=== PATIENT | female | born 1935 | race Caucasian/White ===

== ENCOUNTER 2016-07-28 10:14 | Emergency (ER) | payer MEDICARE ==
--- NOTE | 2016-07-28 10:58 | ERNOTE ---
Lower Extremity HPI - Narrative Date of Service: 07/28/16 - General Lower Extremities Pain: leg: left Time Seen by Provider: 07/28/16 10:44 Source: patient Exam Limitations: no limitations - Immun/Allergies/Home Medications Immunizations: IMMUNIZATION HX Immunizations Up to Date Yes History of Influenza Vaccine Yes Hx Pneumococcal Vaccination Yes Allergies/Adverse Reactions: Allergies Allergy/AdvReac Type Severity Reaction Status Date / Time ciprofloxacin [From Cipro] Allergy Verified 07/28/16 11:57 ciprofloxacin HCl Allergy Verified 07/28/16 11:57 [From Cipro] Iodinated Contrast Media - Allergy Verified 07/28/16 11:57 Oral and Sulfa (Sulfonamide Allergy Verified 07/28/16 11:57 Antibiotics) [Sulfa(Sulfonamide Antibiotics)] Home Medications: HOME MEDICATIONS Aspirin/Calcium Carbonate [Yanelis Women's Aspirin Tablet] 81 mg PO DAILY [Last Taken 11/21/15 22:00] Cholecalciferol [Vitamin D] 600 units PO DAILY 10/11/12 [Last Taken 11/21/15 22: 00] Levothyroxine Sodium [Synthroid] 75 mcg PO DAILY 10/11/12 [Last Taken 11/22/15 07:00] Multivitamins [Multivitamin Betty] 1 cap PO DAILY 10/11/12 [Last Taken 22:00] Nitroglycerin 0.4 mg SL Q5MIN PRN 10/11/12 [Last Taken Unknown] [place]-3/Dha/Epa/Fish Oil [Fish Oil Dr 500 mg Softgel] 3,000 mg PO DAILY [Last Taken 11/21/15 22:00] Ubidecarenone [Co Q-10] 100 mg PO DAILY 10/11/12 [Last Taken 11/21/15 22:00] Valsartan [Diovan] 80 mg PO DAILY 10/11/12 [Last Taken 11/21/15 22:00] Ascorbic Acid [Vitamin C] 1,000 mg PO BID 10/25/12 [Last Taken 11/21/15 22:00] Calcium Carbonate [Tums] 1,000 mg PO DAILY #0 tab.chew 11/20/12 [Last Taken 15:00] Acetaminophen [Tylenol] 650 mg PO Q4H 09/09/13 [Last Taken Unknown] Acyclovir [Zovirax] 400 mg PO BID PRN 01/06/14 [Last Taken Unknown] Atorvastatin Calcium [Lipitor] 40 mg PO HS 02/18/14 [Last Taken 11/21/15 22:00] Ondansetron [Zofran Odt] 4 mg PO Q8H PRN #20 tab 02/23/15 [Last Taken Unknown] Enoxaparin Sodium [Lovenox] 60 mg SC Q12H #5 disp.syrin 07/28/16 [Last Taken Unknown] Warfarin Sodium [Coumadin] 5 mg PO DAILY #3 tablet 07/28/16 [Last Taken Unknown] - History of Present Illness Narrative: Pt. comes in with c/o LLE pain and swelling. Ptr. states that she has had a DVT in this leg twice before and she recently returned from [place]. Pt. also states that she has a hx of venous insufficiency that she wears compression stockings for. Pt. denies any CP, SOB, recent illness, NVD, fever, numbness or tingling. Pt. states that movement exacerbates the pain but nothing completely alleviates it. Review of Systems - Review of Systems Constitutional: Present: no symptoms reported. Absent: recent illness, fever, chills, weakness, fatigue, malaise EYE: Present: no symptoms reported ENT: Present: no symptoms reported Respiratory: Present: no symptoms reported. Absent: shortness of breath, cough , wheezing Cardiology: Present: no symptoms reported. Absent: chest pain, palpitations, edema Gastrointestinal/Abdominal: Present: no symptoms reported. Absent: nausea, vomiting, diarrhea Genitourinary: Present: no symptoms reported. Absent: frequency, decreased urinary output Musculoskeletal: Present: muscle pain - LLE pain and swelling of calf. Absent: back pain, joint pain Skin: Present: no symptoms reported. Absent: rash, change in hair/nails Neurological: Present: no symptoms reported. Absent: headache, dizziness/light- headedness, numbness, tingling All Other Systems: All systems neg except as marked - Patient's Past Medical History Patient History - Medical: Hypothyroidism Patient History - Cardiac/Respiratory: No pertinent hx Patient History - Cancer: No Hx of Cancer Patient History - Surgical Procedures: Cardiac stent, Other - aneurysm clipping Patient History - Other: None - Family History Father Family History - Medical: Family History - Cardiac/Respiratory: Coronary Heart Disease Mother Family History - Medical: Family History - Cardiac/Respiratory: Coronary Heart Disease - Social History Living Situations: home Abuse History: No History of abuse Psych History: No pertinent hx Does anyone smoke in the home?: No Alcohol Use: none Drug Use: none - Immunizations Immunizations Up to Date: Yes Hx Pneumococcal Vaccination: Yes History of Influenza Vaccine: Yes Physical Exam - Physical Exam General Appearance: Present: wd/wn, alert, no apparent distress Eye Exam: Normal inspection: bilateral, PERRL: bilateral, EOMI: bilateral Ears, Nose, Throat: Present: normal ENT inspection, normal pharynx Neck: Present: normal inspection, nontender. Absent: lymphadenopathy (R), lymphadenopathy (L) Respiratory: Present: no respiratory distress, normal breath sounds, no accessory muscle use, chest nontender, lungs clear Cardiovascular/Chest: Present: regular rate, rhythm, no murmur, normal peripheral pulses. Absent: systolic murmur, diastolic murmur, chest tenderness Gastrointestinal/Abdominal: Present: normal bowel sounds, nontender, nondistended, soft, no organomegaly Back Exam: Present: normal inspection, normal range of motion, no CVA tenderness , no vertebral tenderness Extremity Exam: Present: normal range of motion, no edema, calf tenderness - L Neurological Exam: Present: alert, oriented, normal mood/affect, no motor/ sensory deficits, telesales specialist II-XII nml as tested, normal cerebellar test Skin Exam: Present: normal color, warm/dry. Absent: pallor, skin rash ED Progress - Date and Time Seen: Date and Time: 07/28/16 15:56 Pt. 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 Pt. has been on lovenox and coumadin in the past and was offered admission but declined and I feel this is safe with close follow up on Sunday with coumadin clinic and Dr Walters. Discussed with Dr Nena baltazar he agrees with the POC. - Results and Orders Patient's Lab Results:: I have reviewed the patient's lab results. - Vital Signs Patient's Vital Signs:: I have reviewed the patient's vital signs. Vital Signs: Vital Signs 07/28/16 10:34 Temperature 36.5 C Pulse Rate 95 Respiratory 16 Rate Blood Pressure 141/83 O2 Sat by Pulse 98 Oximetry - EKG EKG: NSR EKG read: Reviewed by me EKG Comments: Interpreted by Dr Pandey - X-Ray X-Ray #1 X-Ray: chest Interpretation: Reviewed by me X-ray Comments: no acute - CT/Ultrasound CT/Ultrasound Narrative: US with notable chronic or acute on chronic DVT mid to distal SFV Discussed with Dr Dewey at 1155. Nuc med scan without evidence of PE - Progress/Reassessment Chief Complaint: Lower Extremity Pain/ Injury Progress:: Unchanged Departure Clinical Impression: DVT (deep venous thrombosis) Qualifiers: DVT location: lower extremity Affected thrombotic vein of extremity: femoral Laterality: left Chronicity: unspecified Qualified Code(s): I82.412 - Acute embolism and thrombosis of left femoral vein - Departure Disposition: Home self-care Condition: Good Instructions: Deep Vein Thrombosis Additional Instructions: Please follow up in coumadin clinic on Sunday as well as Dr Walters Referrals: Matheus Walters MD [Primary Care Provider] - Prescriptions: Enoxaparin Sodium [Lovenox] 60 mg SC Q12H #5 disp.syrin Warfarin Sodium [Coumadin] 5 mg PO DAILY #3 tablet
[2016-07-28 11:07] LABS: Hematocrit 36.7 % (37.0-47.0); Hemoglobin 12.2 gm/dL (12.5-16.0); Mean Cell Volume 94.6 fl (78-100); Mean Corpuscular Hemoglobin 31.4 pg (27-31); Mean Corpuscular Hgb Conc 33.2 g/dl (32-36); Mean Platelet Volume 9.3 fl (6.0-9.5); Neutrophil # 4.2 K/mm3 (1.3-6.0); Neutrophil % 68.8 % (42-75.0); Platelet Count 219 K/mm3 (150-450); Red Blood Count 3.88 M/mm3 (4.2-5.4); Red Cell Distribution Width 12.2 % (11.5-14.0); White Blood Count 6.1 K/mm3 (4.0-10.5)
[2016-07-28 11:16] LABS: Prothrombin Time (Patient) 10.1 Seconds (9.4-11.4)
[2016-07-28 11:17] LABS: INR 0.97 INR (0.90-1.10); Partial Thrombolplastin Time 26.1 Seconds (24-32)
--- OUTSIDE RECORDS SUMMARY | 2016-07-28 11:23 | XMS REPORT | Continuity of Care Document ---
:1935 Author Organization [facility] ([facility]) Address [address] [place] [address] Phone [phone] Care Team Providers Name Role Phone Matheus Walters Primary Care Provider [phone] Source Comments This disclosure is being made pursuant to the Care Everywhere program, applicable federal and state laws, and may not contain all informaitonavailable regarding this patient.[facility] ([facility]) Active Allergies and Adverse Reactions Allergen Noted Date Severity Reactions Comments Iodinated Contrast Media - 09/22/2013 Urticaria Oral And Iv Dye (Hives),Angioedema,Rash Iodine Respiratory Distress,Hypotension Sulfadoxine Urticaria (Hives) Current Medications Prescription Sig. Disp. 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 Overview: Promus 3.0 x 23 mm JAH to LAD in 2010 Mitral regurgitation 01/12/2015 Overview: Mild by outside echo 2013 Essential hypertension 01/12/2015 Hyperlipidemia 01/12/2015 DVT of lower extremity (deep venous thrombosis) 09/22/2013 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 Social History Tobacco Use Types Packs/Day Years Used Date Never Smoker Smokeless Tobacco: Never Used Last Filed Vital Signs Vital Sign Reading Time Taken Blood Pressure 112/80 01/26/2016 10:54 AM CDT Pulse 64 01/26/2016 10:54 AM CDT Temperature 36.4 C (97.5 F) 09/22/2013 3:12 PM CDT Respiratory Rate 16 09/22/2013 3:12 PM CDT Height 1.575 m (5' 2.01") 01/26/2016 10:54 AM CDT Weight 68.493 kg (151 lb) 01/26/2016 10:54 AM CDT Body Mass Index 27.61 01/26/2016 10:54 AM CDT Oxygen Saturation 99% 09/22/2013 3:12 PM CDT Plan of Care Date Type Specialty Providers Description 11/15/2016 Appointment [facility] Alfred Steiner, Subj: Appointment Scheduled [address] [place] [address] [phone] (Fax) Health Maintenance Due Date Last Done Comments Hepatitis B Vaccine (1 of 3 - Primary Series) 1935 Tdap Vaccine 02/06/1946 Td Vaccine 1955 Mammogram 1977 Colonoscopy 1987 Zoster Vaccine 1997 Osteoporosis Screening (DXA Bone Density) 2002 Pneumococcal Vaccine (1 of 2 - PCV13) 2002 Lipid Disorder Screening 12/11/2008 12/12/2003 Influenza Vaccine: Seasonal (#1) 11/01/2015 Results from Last 3 Months Not on file
[2016-07-28 11:26] LABS: ALT 37 U/L (19-67); AST 32 U/L (0-48); Albumin * 3.7 gm/dl (3.4-5.0); Alkaline Phosphatase * 81 U/L (50-170); Anion Gap 13.1 mmol/L (6.8-13.8); BNP * 90 pg/mL (5-550); BUN/Creatinine Ratio 15.1 (9.0-21.6); Bilirubin, Total 0.4 mg/dL (0.0-1.1); Blood Urea Nitrogen 14 mg/dL (3-23); Ca. Corrected For Albumin 9.3 mg/dL (8.4-10.2); Calcium * 9.4 mg/dL (7.9-10.9); Chloride 99 mmol/L (97-106); Glucose * 114 mg/dL (70-110); Potassium 4.1 mmol/L (3.4-4.6); Sodium 136 mmol/L (132-142); Total Protein 7.7 gm/dL (6.2-8.2); Troponin I Less than 0.017 ng/ml (0.00-0.10)
[2016-07-28 15:38] VITALS: BP 151/90
[2016-07-28] MEDS: ENOXAPARIN SODIUM 60 MG/0.6 ML SYRG SC ONE (16:29)
[2016-07-28] MEDS: ENOXAPARIN SODIUM 30 MG/0.3 ML SYRG SC ONE (16:32)
== END 2016-07-28 16:32 | disposition home or self-care (01) ==
LOC: ER 10:14
DX: I82.412 Acute embolism and thrombosis of left femoral vein (principal); Z95.5 Presence of coronary angioplasty implant and graft
CPT/HCPCS: 36415; 71010; 78582; 80053; 83880; 84484; 85025; 85379; 85610; 85730; 93005; 93971; 96372; 99284; A9539; A9540

== ENCOUNTER 2016-08-04 13:10 | Emergency (ER) | payer MEDICARE ==
[2016-08-04 13:19] VITALS: BP 151/89
--- OUTSIDE RECORDS SUMMARY | 2016-08-04 13:37 | XMS REPORT | Continuity of Care Document ---
:1935 Author Organization [facility] ([facility]) Address [address] [place] [address] Phone [phone] Care Team Providers Name Role Phone Matheus Walters Primary Care Provider [phone] Source Comments This disclosure is being made pursuant to the Care Everywhere program, applicable federal and state laws, and may not contain all informaitonavailable regarding this patient.[facility] ([facility]) Active Allergies and Adverse Reactions Allergen [...] tablet (75MCG) by oral route every day kwyok-6-muz-epa-fish oil 03/15/2011 Active (OMEGA-3 FISH OIL) 910-1,400 mg cap valsartan (DIOVAN) 80 mg take 1 tablet 03/15/2011 Active tablet (80MG) by oral route every day Active Problems Problem Noted Date 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
--- NOTE | 2016-08-04 13:50 | ERNOTE ---
Lower Extremity HPI - Narrative Date of Service: 08/04/16 - General Lower Extremities Pain: leg: right Time Seen by Provider: 08/04/16 13:24 Source: patient Exam Limitations: no limitations - Immun/Allergies/Home Medications Immunizations: IMMUNIZATION HX Immunizations Up to Date Yes History of Influenza Vaccine Yes Hx Pneumococcal Vaccination Yes Allergies/Adverse Reactions: Allergies Allergy/AdvReac Type Severity Reaction Status Date / Time ciprofloxacin [From Cipro] Allergy Verified 08/04/16 13:20 ciprofloxacin HCl Allergy Verified 08/04/16 13:20 [From Cipro] Iodinated Contrast Media - Allergy Verified 08/04/16 13:20 Oral and Sulfa (Sulfonamide Allergy Verified 08/04/16 13:20 Antibiotics) [Sulfa(Sulfonamide Antibiotics)] Home Medications: HOME MEDICATIONS Aspirin/Calcium Carbonate [Yanelis Women's Aspirin Tablet] 81 mg PO DAILY [Last Taken 11/21/15 22:00] Cholecalciferol [Vitamin D] 600 units PO DAILY 10/11/12 [Last Taken 11/21/15 22: 00] Levothyroxine Sodium [Synthroid] 75 mcg PO DAILY 10/11/12 [Last Taken 11/22/15 07:00] Multivitamins [Multivitamin Btety] 1 cap PO DAILY 10/11/12 [Last Taken 22:00] Nitroglycerin 0.4 mg SL Q5MIN PRN 10/11/12 [Last Taken Unknown] [place]-3/Dha/Epa/Fish Oil [Fish Oil Dr 500 mg Softgel] 3,000 mg PO DAILY [Last Taken 11/21/15 22:00] Ubidecarenone [Co Q-10] 100 mg PO DAILY 10/11/12 [Last Taken 11/21/15 22:00] Valsartan [Diovan] 80 mg PO DAILY 10/11/12 [Last Taken 11/21/15 22:00] Ascorbic Acid [Vitamin C] 1,000 mg PO BID 10/25/12 [Last Taken 11/21/15 22:00] Calcium Carbonate [Tums] 1,000 mg PO DAILY #0 tab.chew 11/20/12 [Last Taken 15:00] Acetaminophen [Tylenol] 650 mg PO Q4H 09/09/13 [Last Taken Unknown] Acyclovir [Zovirax] 400 mg PO BID PRN 01/06/14 [Last Taken Unknown] Atorvastatin Calcium [Lipitor] 40 mg PO HS 02/18/14 [Last Taken 11/21/15 22:00] Ondansetron [Zofran Odt] 4 mg PO Q8H PRN #20 tab 02/23/15 [Last Taken Unknown] Enoxaparin Sodium [Lovenox] 60 mg SC Q12H #5 disp.syrin 07/28/16 [Last Taken Unknown] Warfarin Sodium [Coumadin] 5 mg PO DAILY #3 tablet 07/28/16 [Last Taken Unknown] - History of Present Illness Narrative: Pt comes in with c/o intermittent R leg swelling and pain. Pt. denies any new symptoms since being diagnosed with lle DVT a week ago but states that her symptoms are not improving despite treatment with lovenox and coumadin. Pt. denies any SOB, CP, dizziness, weakness, vision changes, numbness or tingling. Pt. called her MD office and was told to come here for evaluation. Review of Systems - Review of Systems Constitutional: Present: no symptoms reported. Absent: fever, chills, weakness , fatigue, malaise EYE: Present: no symptoms reported ENT: Present: no symptoms reported Respiratory: Present: no symptoms reported. Absent: shortness of breath, cough , orthopnea, wheezing Cardiology: Present: no symptoms reported. Absent: chest pain, palpitations, edema Gastrointestinal/Abdominal: Present: no symptoms reported. Absent: nausea, vomiting, diarrhea Genitourinary: Present: no symptoms reported. Absent: frequency, pain, decreased urinary output Musculoskeletal: Present: no symptoms reported. Absent: back pain, joint pain Skin: Present: no symptoms reported. Absent: rash, change in hair/nails Neurological: Present: no symptoms reported. Absent: headache, dizziness/light- headedness, numbness, tingling All Other Systems: All systems neg except as marked - Patient's Past Medical History Patient History - Medical: Hypothyroidism Patient History - Cardiac/Respiratory: No pertinent hx Patient History - Cancer: No Hx of Cancer Patient History - Surgical Procedures: Cardiac stent, Other Patient History - Other: None - Family History Father Family History - Medical: Family History - Cardiac/Respiratory: Coronary Heart Disease Mother Family History - Medical: Family History - Cardiac/Respiratory: Coronary Heart Disease - Social History Living Situations: home Abuse History: No History of abuse Psych History: No pertinent hx Does anyone smoke in the home?: No Alcohol Use: none Drug Use: none - Immunizations Immunizations Up to Date: Yes Hx Pneumococcal Vaccination: Yes History of Influenza Vaccine: Yes Physical Exam - Physical Exam General Appearance: Present: wd/wn, alert, no apparent distress Eye Exam: Normal inspection: bilateral, PERRL: bilateral, EOMI: bilateral Ears, Nose, Throat: Present: normal ENT inspection, normal pharynx Respiratory: Present: no respiratory distress, normal breath sounds, no accessory muscle use, chest nontender, lungs clear Cardiovascular/Chest: Present: regular rate, rhythm, no murmur, normal peripheral pulses Gastrointestinal/Abdominal: Present: normal bowel sounds, nontender, nondistended, soft, no organomegaly Back Exam: Present: normal inspection, normal range of motion, no CVA tenderness , no vertebral tenderness Extremity Exam: Present: calf tenderness - L, extremity edema - LLE trace, other - PPP+2/+2. Absent: joint redness Neurological Exam: Present: alert, oriented, normal mood/affect, no motor/ sensory deficits, gaggerman II-XII nml as tested, normal cerebellar test Skin Exam: Present: normal color, warm/dry. Absent: pallor, skin rash ED Progress - Date and Time Seen: Date and Time: 08/04/16 13:38 As pt. is not with new symptoms educated pt. to elevate her LE above heart and reassured that this is normal and may not be improved for weeks. Pt. comfortable with this and I do not feel that repeat testing is necessary as pt. has no new symptoms and is not therapeutic with her coumadin since yesterday. Discussed with Dr Pandey and he agrees. 08/04/16 13:49 - Results and Orders Patient's Lab Results:: I have reviewed the patient's lab results. Results and Orders: INR 1.7 yesterday - Vital Signs Patient's Vital Signs:: I have reviewed the patient's vital signs. Vital Signs: Vital Signs 08/04/16 13:15 Temperature 36.0 C L Pulse Rate 83 Respiratory 16 Rate Blood Pressure 151/89 O2 Sat by Pulse 96 Oximetry - Progress/Reassessment Chief Complaint: Lower Extremity Pain/ Injury Progress:: Unchanged Departure Clinical Impression: DVT (deep venous thrombosis) Qualifiers: DVT location: lower extremity Affected thrombotic vein of extremity: other lower extremity vein Laterality: right Chronicity: chronic Qualified Code(s): I82.591 - Chronic embolism and thrombosis of other specified deep vein of right lower extremity - Departure Disposition: Home self-care Condition: Good Instructions: Deep Vein Thrombosis Additional Instructions: Keep your legs elevated, follow up with Dr Walters on Sunday at 1115. Keep appointment with catherine on Sunday Referrals: Matheus Walters MD [Primary Care Provider] -
== END 2016-08-04 13:57 | disposition home or self-care (01) ==
LOC: ER 13:10
DX: I82.591 Chronic embolism and thrombosis of other specified deep vein of right lower extremity (principal); E03.9 Hypothyroidism, unspecified

== ENCOUNTER 2016-08-07 22:28 | Emergency (ER) | payer MEDICARE ==
--- NOTE | 2016-08-07 23:36 | ERNOTE ---
Medical Problem HPI - General Chief Complaint: Laceration Time Seen by Provider: 08/07/16 23:26 Source: patient Exam Limitations: no limitations - Immun/Allergies/Home Medications Immunizations: IMMUNIZATION HX Immunizations Up to Date Yes History of Influenza Vaccine Yes Hx Pneumococcal Vaccination Yes Allergies/Adverse Reactions: Allergies ciprofloxacin [From Cipro] Allergy (Verified 08/04/16 13:20) ciprofloxacin HCl [From Cipro] Allergy (Verified 08/04/16 13:20) Iodinated Contrast Media - Oral and Allergy (Verified 08/04/16 13:20) Sulfa (Sulfonamide Antibiotics) [Sulfa(Sulfonamide Antibiotics)] Allergy ( Verified 08/04/16 13:20) Home Medications: HOME MEDICATIONS Aspirin/Calcium Carbonate [Yanelis Women's Aspirin Tablet] 81 mg PO DAILY [Last Taken 11/21/15 22:00] Cholecalciferol [Vitamin D] 600 units PO DAILY 10/11/12 [Last Taken 11/21/15 22: 00] Levothyroxine Sodium [Synthroid] 75 mcg PO DAILY 10/11/12 [Last Taken 11/22/15 07:00] Multivitamins [Multivitamin Betty] 1 cap PO DAILY 10/11/12 [Last Taken 22:00] Nitroglycerin 0.4 mg SL Q5MIN PRN 10/11/12 [Last Taken Unknown] [place]-3/Dha/Epa/Fish Oil [Fish Oil Dr 500 mg Softgel] 3,000 mg PO DAILY [Last Taken 11/21/15 22:00] Ubidecarenone [Co Q-10] 100 mg PO DAILY 10/11/12 [Last Taken 11/21/15 22:00] Valsartan [Diovan] 80 mg PO DAILY 10/11/12 [Last Taken 11/21/15 22:00] Ascorbic Acid [Vitamin C] 1,000 mg PO BID 10/25/12 [Last Taken 11/21/15 22:00] Calcium Carbonate [Tums] 1,000 mg PO DAILY #0 tab.chew 11/20/12 [Last Taken 15:00] Acetaminophen [Tylenol] 650 mg PO Q4H 09/09/13 [Last Taken Unknown] Acyclovir [Zovirax] 400 mg PO BID PRN 01/06/14 [Last Taken Unknown] Atorvastatin Calcium [Lipitor] 40 mg PO HS 02/18/14 [Last Taken 11/21/15 22:00] Ondansetron [Zofran Odt] 4 mg PO Q8H PRN #20 tab 02/23/15 [Last Taken Unknown] Enoxaparin Sodium [Lovenox] 60 mg SC Q12H #5 disp.syrin 07/28/16 [Last Taken Unknown] Warfarin Sodium [Coumadin] 7.5 mg PO DAILY 08/07/16 [Last Taken Unknown] - History of Present History Narrative: skin tear on left wrist unknown injury. unable to stop bleeding due to recent coumadin initiation Timing: constant Severity: mild Review of Systems - Review of Systems Constitutional: Present: no symptoms reported EYE: Present: no symptoms reported ENT: Present: no symptoms reported Respiratory: Absent: shortness of breath Cardiology: Absent: chest pain Gastrointestinal/Abdominal: Present: no symptoms reported Genitourinary: Present: no symptoms reported Musculoskeletal: Present: no symptoms reported Skin: Present: no symptoms reported Neurological: Present: no symptoms reported Endocrine: Present: no symptoms reported Hematologic/Lymphatic: Present: easy bruising, easy bleeding - recent DVT and initiation of coumadin. dose increased today due to INR of 1.54 Psych: Present: no symptoms reported - Patient's Past Medical History Patient History - Medical: Hypothyroidism Patient History - Cardiac/Respiratory: CVA/Stroke, Deep Vein Thrombosis, Hypertension Patient History - Cancer: No Hx of Cancer Patient History - Surgical Procedures: Cardiac stent, Other Patient History - Other: None - Family History Father Family History - Medical: Family History - Cardiac/Respiratory: Coronary Heart Disease Mother Family History - Medical: Family History - Cardiac/Respiratory: Coronary Heart Disease - Social History Living Situations: spouse Abuse History: No History of abuse Psych History: No pertinent hx Does anyone smoke in the home?: No Smoking Status: Never smoker Alcohol Use: none Drug Use: none - Immunizations Immunizations Up to Date: Yes Hx Pneumococcal Vaccination: Yes History of Influenza Vaccine: Yes Physical Exam - Physical Exam General Appearance: Present: wd/wn, alert, no apparent distress ED Progress - Results and Orders Patient's Lab Results:: I have reviewed the patient's lab results. - INR done earlier today - Vital Signs Patient's Vital Signs:: I have reviewed the patient's vital signs. Vital Signs: Vital Signs 08/07/16 22:32 Temperature 36.1 C L Pulse Rate 84 Respiratory 14 Rate Blood Pressure 131/82 O2 Sat by Pulse 99 Oximetry - Progress/Reassessment Chief Complaint: Laceration Progress Note-Subjective: 08/08/16 01:40 EMLA, gauze and tegaderm was placed on the wound and it appeared to stop bleeding but before the patient could be discharged the bandage showed significant blood saturation. tegaderm was removed and wound treated with silver nitrate Procedures Left Wrist Anesthesia: Topical - EMLA and occlusive dressing Length of Repair/Wound (cm): 0.2 Wound's Depth/Shape: superficial Wound Repaired With: other - chemical cautery with silver nitrate. single application accomplished hemostasis Estimated blood loss (ml): 5 Wound Dressing: sterile dressing applied - with 2x2 and tegaderm Complications: Pt lilian procedure well Departure - Departure Clinical Impression: Skin tear of hand without complication Qualifiers: Encounter type: initial encounter Laterality: left Qualified Code(s): S61.412A - Laceration without foreign body of left hand, initial encounter Disposition: Home self-care Condition: Good Instructions: Laceration Care, Adult, [id number] Additional Instructions: leave bandage on for 36 hours then carefully take off. If it begins to stick you may use peroxide or water to help loosen the bandage. Referrals: Matheus Walters MD [Primary Care Provider] -
[2016-08-07] MEDS ORDERED: LIDOCAINE HCL TP ONE (23:37)
[2016-08-07] MEDS ORDERED: EPINEPHRINE TP ONE (23:37)
--- OUTSIDE RECORDS SUMMARY | 2016-08-08 | XMS REPORT | Continuity of Care Document ---
:1935 Author Organization [facility] ([facility]) Address [address] [place] [address] Phone [phone] Care Team Providers Name Role Phone Matheus Walters Primary Care Provider [phone] Source Comments This disclosure is being made pursuant to the Care Everywhere program, applicable federal and state laws, and may not contain all informaitonavailable regarding this patient.[facility] ([facility]) Active Allergies and Adverse Reactions Allergen Noted [...] tablet (75MCG) by oral route every day ctuec-2-krx-epa-fish oil 03/15/2011 Active (OMEGA-3 FISH OIL) 910-1,400 mg cap valsartan (DIOVAN) 80 mg take 1 tablet 03/15/2011 Active tablet (80MG) by oral route every day Active Problems Problem Noted Date 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
[2016-08-08] MEDS ORDERED: LIDOCAINE/PRILOCAINE 1 APPL KIT TP ONE ×2 (00:26→00:28)
[2016-08-08 02:11] VITALS: BP 118/73
== END 2016-08-08 01:45 | disposition home or self-care (01) ==
LOC: ER 22:28
PROC: 0HQGXZZ Repair Left Hand Skin, External Approach (ICD-10-PCS; principal; 2016-08-07)
DX: S61.412A Laceration without foreign body of left hand, initial encounter (principal); E03.9 Hypothyroidism, unspecified; I10 Essential (primary) hypertension; Z86.73 Personal history of transient ischemic attack (TIA), and cerebral infarction without residual deficits

== ENCOUNTER 2016-09-08 16:14 | Emergency (ER) | payer MEDICARE ==
--- OUTSIDE RECORDS SUMMARY | 2016-09-08 17:32 | XMS REPORT | Continuity of Care Document ---
:1935 Author Organization [facility] ([facility]) Address [address] [place] [address] Phone [phone] Care Team Providers Name Role Phone Matheus Walters Primary Care Provider [phone] Source Comments This disclosure is being made pursuant to the Care Everywhere program, applicable federal and state laws, and may not contain all informaitonavailable regarding this patient.[facility] ([facility]) Active Allergies and Adverse Reactions Allergen Noted Date Severity Reactions Comments Iodinated Contrast- Oral And 09/22/2013 Urticaria Iv Dye (Hives),Angioedema,Rash Iodine Respiratory Distress,Hypotension Sulfadoxine [...] tablet (75MCG) by oral route every day ootnd-1-xey-epa-fish oil 03/15/2011 Active (OMEGA-3 FISH OIL) 910-1,400 mg cap valsartan (DIOVAN) 80 mg take 1 tablet 03/15/2011 Active tablet (80MG) by oral route every day Active Problems Problem Noted Date 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
[2016-09-08 17:44] LABS: Hematocrit 35.6 % (37.0-47.0); Hemoglobin 11.9 gm/dL (12.5-16.0); Mean Cell Volume 93.2 fl (78-100); Mean Corpuscular Hemoglobin 31.2 pg (27-31); Mean Corpuscular Hgb Conc 33.4 g/dl (32-36); Mean Platelet Volume 8.9 fl (6.0-9.5); Neutrophil # 3.7 K/mm3 (1.3-6.0); Neutrophil % 66.7 % (42-75.0); Platelet Count 227 K/mm3 (150-450); Red Blood Count 3.82 M/mm3 (4.2-5.4); Red Cell Distribution Width 12.9 % (11.5-14.0); White Blood Count 5.6 K/mm3 (4.0-10.5)
[2016-09-08 17:55] LABS: INR 3.56 INR (0.90-1.10)
[2016-09-08 17:58] LABS: Albumin * 3.8 gm/dl (3.4-5.0); Bilirubin, Total 0.4 mg/dL (0.0-1.1); Ca. Corrected For Albumin 9.5 mg/dL (8.4-10.2); Calcium * 9.7 mg/dL (7.9-10.9); Carbon Dioxide 29.8 mmol/L (24-32.6); Potassium 3.8 mmol/L (3.4-4.6); Total Protein 7.7 gm/dL (6.2-8.2)
--- NOTE | 2016-09-08 18:07 | ERNOTE ---
Medical Problem HPI - General Chief Complaint: General Assessment Time Seen by Provider: 09/08/16 17:04 Source: patient Exam Limitations: no limitations - Immun/Allergies/Home Medications Immunizations: IMMUNIZATION HX Immunizations Up to Date Yes History of Influenza Vaccine Yes Hx Pneumococcal Vaccination Yes Allergies/Adverse Reactions: Allergies ciprofloxacin [From Cipro] Allergy (Verified 09/08/16 16:40) ciprofloxacin HCl [From Cipro] Allergy (Verified 09/08/16 16:40) Iodinated Contrast Media - Oral and Allergy (Verified 09/08/16 16:40) Sulfa (Sulfonamide Antibiotics) [Sulfa(Sulfonamide Antibiotics)] Allergy ( Verified 09/08/16 16:40) Home Medications: HOME MEDICATIONS Aspirin/Calcium Carbonate [Yanelis Women's Aspirin Tablet] 81 mg PO DAILY [Last Taken 11/21/15 22:00] Cholecalciferol [Vitamin D] 600 units PO DAILY 10/11/12 [Last Taken 11/21/15 22: 00] Levothyroxine Sodium [Synthroid] 75 mcg PO DAILY 10/11/12 [Last Taken 11/22/15 07:00] Multivitamins [Multivitamin Betty] 1 cap PO DAILY 10/11/12 [Last Taken 22:00] Nitroglycerin 0.4 mg SL Q5MIN PRN 10/11/12 [Last Taken Unknown] [place]-3/Dha/Epa/Fish Oil [Fish Oil Dr 500 mg Softgel] 3,000 mg PO DAILY [Last Taken 11/21/15 22:00] Ubidecarenone [Co Q-10] 100 mg PO DAILY 10/11/12 [Last Taken 11/21/15 22:00] Valsartan [Diovan] 80 mg PO DAILY 10/11/12 [Last Taken 11/21/15 22:00] Ascorbic Acid [Vitamin C] 1,000 mg PO BID 10/25/12 [Last Taken 11/21/15 22:00] Calcium Carbonate [Tums] 1,000 mg PO DAILY #0 tab.chew 11/20/12 [Last Taken 15:00] Acetaminophen [Tylenol] 650 mg PO Q4H 09/09/13 [Last Taken Unknown] Acyclovir [Zovirax] 400 mg PO BID PRN 01/06/14 [Last Taken Unknown] Atorvastatin Calcium [Lipitor] 40 mg PO HS 02/18/14 [Last Taken 11/21/15 22:00] Warfarin Sodium [Coumadin] 5 mg PO DAILY 08/07/16 [Last Taken Unknown] Phenylephrine HCl [Anusol Suppository] 1 supp RC BID #20 supp.rect 09/08/16 [ Last Taken Unknown] - History of Present History Narrative: Patient presents with leading to chronic hemorrhoid. As the patient is on Coumadin for DVT she was told that with any bleeding she should come in the emergency department. He denies any complaint of any kind is just trying to be compliant with her physician's orders. Timing: intermittent Severity: mild Review of Systems - Review of Systems Constitutional: Present: See HPI EYE: Present: no symptoms reported ENT: Present: no symptoms reported Respiratory: Present: no symptoms reported Cardiology: Present: no symptoms reported Gastrointestinal/Abdominal: Present: no symptoms reported, other - hemorrhoid bleeding Genitourinary: Present: no symptoms reported Musculoskeletal: Present: no symptoms reported Skin: Present: no symptoms reported Neurological: Present: no symptoms reported Endocrine: Present: no symptoms reported Hematologic/Lymphatic: Present: no symptoms reported Psych: Present: no symptoms reported - Patient's Past Medical History Patient History - Medical: Hypothyroidism, Other - DVT Patient History - Cardiac/Respiratory: No pertinent hx, Deep Vein Thrombosis, Hypertension, Hyperlipidemia Patient History - Cancer: No Hx of Cancer Patient History - Surgical Procedures: Cardiac stent, Other Patient History - Other: None LMP (females 10-50): Menopausal - Family History Father Family History - Medical: Family History - Cardiac/Respiratory: Coronary Heart Disease Mother Family History - Medical: Family History - Cardiac/Respiratory: Coronary Heart Disease - Social History Living Situations: home Abuse History: No History of abuse Psych History: No pertinent hx Does anyone smoke in the home?: No Smoking Status: Former smoker Alcohol Use: none Drug Use: none - Immunizations Immunizations Up to Date: Yes Hx Pneumococcal Vaccination: Yes History of Influenza Vaccine: Yes Physical Exam - Physical Exam General Appearance: Present: wd/wn, alert, no apparent distress Eye Exam: Normal inspection: bilateral, PERRL: bilateral Ears, Nose, Throat: Present: normal ENT inspection, H, normal pharynx Neck: Present: normal inspection, nontender Respiratory: Present: no respiratory distress, normal breath sounds, no accessory muscle use, chest nontender, lungs clear Cardiovascular/Chest: Present: regular rate, rhythm, no murmur, normal peripheral pulses Gastrointestinal/Abdominal: Present: normal bowel sounds, nontender, nondistended, soft, no organomegaly Rectal Exam: Present: blood-streaked stool, hemorrhoids Back Exam: Present: normal inspection, normal range of motion Extremity Exam: Present: normal inspection, non-tender, no edema, normal range of motion Neurological Exam: Present: alert, oriented, normal mood/affect Skin Exam: Present: normal color, warm/dry Lymphatic Exam: Present: no adenopathy ED Progress - Results and Orders Patient's Lab Results:: I have reviewed the patient's lab results. - Vital Signs Patient's Vital Signs:: I have reviewed the patient's vital signs. Vital Signs: Vital Signs 09/08/16 09/08/16 16:34 17:37 Temperature 37.2 C Pulse Rate 95 87 Respiratory 16 15 Rate Blood Pressure 134/73 124/88 O2 Sat by Pulse 97 98 Oximetry - Progress/Reassessment Chief Complaint: General Assessment Plan - Plan Plan: Patient has been taking extra fiber and it is causing fairly rapid transit through the colon with multiple stools. I suspect this is the source of her Coumadin being elevated as the bacteria in the colon or not able to make adequate vitamin K in the time allotted it. Patient will hold her Coumadin tomorrow, she will back off on her fiber and she will have her INR checked next Sunday morning with Flor. We will start the patient on steroid cream for her hemorrhoid and patient is discharged in stable condition. Departure - Departure Clinical Impression: Hemorrhoid Qualifiers: Hemorrhoid type: unspecified Qualified Code(s): K64.9 - Unspecified hemorrhoids Disposition: Home self-care Condition: Good Instructions: Hemorrhoids, [id number] Referrals: Matheus Walters MD [Primary Care Provider] - Prescriptions: Phenylephrine HCl [Anusol Suppository] 1 supp RC BID #20 supp.rect
[2016-09-08 19:30] VITALS: BP 166/88
== END 2016-09-08 18:44 | disposition home or self-care (01) ==
LOC: ER 16:14
DX: K64.9 Unspecified hemorrhoids (principal); Z86.718 Personal history of other venous thrombosis and embolism; Z79.01 Long term (current) use of anticoagulants; E03.9 Hypothyroidism, unspecified; E78.5 Hyperlipidemia, unspecified; I10 Essential (primary) hypertension; Z95.5 Presence of coronary angioplasty implant and graft; Z87.891 Personal history of nicotine dependence

== ENCOUNTER 2016-09-13 16:25 | Emergency (ER) | payer MEDICARE ==
[2016-09-13 17:14] LABS: Hematocrit 33.7 % (37.0-47.0); Hemoglobin 11.2 gm/dL (12.5-16.0); Mean Cell Volume 93.9 fl (78-100); Mean Corpuscular Hemoglobin 31.2 pg (27-31); Mean Corpuscular Hgb Conc 33.2 g/dl (32-36); Mean Platelet Volume 9.1 fl (6.0-9.5); Neutrophil % 60.7 % (42-75.0); Platelet Count 236 K/mm3 (150-450); Red Blood Count 3.59 M/mm3 (4.2-5.4); Red Cell Distribution Width 12.8 % (11.5-14.0); White Blood Count 6.6 K/mm3 (4.0-10.5)
--- OUTSIDE RECORDS SUMMARY | 2016-09-13 17:17 | XMS REPORT | Continuity of Care Document ---
:1935 Author Organization [facility] ([facility]) Address [address] [place] [address] Phone [phone] Care Team Providers Name Role Phone Matheus Walters Primary Care Provider [phone] Source Comments This disclosure is being made pursuant to the Care Everywhere program, applicable federal and state laws, and may not contain all informaitonavailable regarding this patient.[facility] ([facility]) Active Allergies and Adverse Reactions Allergen Noted [...] tablet (75MCG) by oral route every day cqouy-8-pfk-epa-fish oil 03/15/2011 Active (OMEGA-3 FISH OIL) 910-1,400 mg cap valsartan (DIOVAN) 80 mg take 1 tablet 03/15/2011 Active tablet (80MG) by oral route every day Active Problems Problem Noted Date 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
[2016-09-13 17:23] LABS: INR 2.59 INR (0.90-1.10); Prothrombin Time (Patient) 26.9 Seconds (9.4-11.4)
--- NOTE | 2016-09-13 17:42 | ERNOTE ---
ER Female HPI Date of Service: 09/13/16 Stated Complaint: VAG BLEEDING / PAIN Time Seen by Provider: 09/13/16 16:51 Source: patient Exam Limitations: no limitations Immunizations: IMMUNIZATION HX Immunizations Up to Date Yes History of Influenza Vaccine Yes Hx Pneumococcal Vaccination Yes Allergies/Adverse Reactions: Allergies ciprofloxacin [From Cipro] Allergy (Verified 09/13/16 16:43) ciprofloxacin HCl [From Cipro] Allergy (Verified 09/13/16 16:43) Iodinated Contrast Media - Oral and Allergy (Verified 09/13/16 16:43) Sulfa (Sulfonamide Antibiotics) [Sulfa(Sulfonamide Antibiotics)] Allergy ( Verified 09/13/16 16:43) Home Medications: HOME MEDICATIONS Aspirin/Calcium Carbonate [Yanelis Women's Aspirin Tablet] 81 mg PO DAILY [Last Taken 11/21/15 22:00] Cholecalciferol [Vitamin D] 600 units PO DAILY 10/11/12 [Last Taken 11/21/15 22: 00] Levothyroxine Sodium [Synthroid] 75 mcg PO DAILY 10/11/12 [Last Taken 11/22/15 07:00] Multivitamins [Multivitamin Betty] 1 cap PO DAILY 10/11/12 [Last Taken 22:00] Nitroglycerin 0.4 mg SL Q5MIN PRN 10/11/12 [Last Taken Unknown] [place]-3/Dha/Epa/Fish Oil [Fish Oil Dr 500 mg Softgel] 3,000 mg PO DAILY [Last Taken 11/21/15 22:00] Ubidecarenone [Co Q-10] 100 mg PO DAILY 10/11/12 [Last Taken 11/21/15 22:00] Valsartan [Diovan] 80 mg PO DAILY 10/11/12 [Last Taken 11/21/15 22:00] Ascorbic Acid [Vitamin C] 1,000 mg PO BID 10/25/12 [Last Taken 11/21/15 22:00] Calcium Carbonate [Tums] 1,000 mg PO DAILY #0 tab.chew 11/20/12 [Last Taken 15:00] Acetaminophen [Tylenol] 650 mg PO Q4H 09/09/13 [Last Taken Unknown] Acyclovir [Zovirax] 400 mg PO BID PRN 01/06/14 [Last Taken Unknown] Atorvastatin Calcium [Lipitor] 40 mg PO HS 02/18/14 [Last Taken 11/21/15 22:00] Warfarin Sodium [Coumadin] 5 mg PO DAILY 08/07/16 [Last Taken Unknown] Phenylephrine HCl [Anusol Suppository] 1 supp RC BID #20 supp.rect 09/08/16 [ Last Taken Unknown] - History of Present Illness Narrative: Pt. comes in with c/o vaginal bleeding after having a vaginal lesion removed yesterday and having wound closed using silver nitrate. Pt. has had this procedure done in the past and has not had bleeding but was not on coumadin with those procedures, and she is currently on coumadin for DVT. Review of Systems - Review of Systems Constitutional: Present: no symptoms reported. Absent: fever, chills, weakness , fatigue, malaise EYE: Present: no symptoms reported ENT: Present: no symptoms reported Respiratory: Present: no symptoms reported. Absent: shortness of breath, cough , wheezing Cardiology: Present: no symptoms reported. Absent: chest pain, palpitations, edema Gastrointestinal/Abdominal: Present: no symptoms reported. Absent: nausea, vomiting, diarrhea Genitourinary: Present: discharge - blood Musculoskeletal: Present: no symptoms reported. Absent: back pain, joint pain Neurological: Present: no symptoms reported. Absent: headache, dizziness/light- headedness, numbness, tingling Hematologic/Lymphatic: Present: easy bruising, easy bleeding All Other Systems: All systems neg except as marked - Patient's Past Medical History Patient History - Medical: Hypothyroidism Patient History - Cardiac/Respiratory: Deep Vein Thrombosis, Hypertension, Hyperlipidemia Patient History - Cancer: No Hx of Cancer Patient History - Surgical Procedures: D & C, Other Patient History - Other: None - Family History Father Family History - Medical: Family History - Cardiac/Respiratory: Coronary Heart Disease Mother Family History - Medical: Family History - Cardiac/Respiratory: Coronary Heart Disease - Social History Living Situations: home Abuse History: No History of abuse Psych History: No pertinent hx Does anyone smoke in the home?: No Smoking Status: Never smoker Have you smoked in the past 12 months: No Alcohol Use: none Drug Use: none - Immunizations Immunizations Up to Date: Yes Hx Pneumococcal Vaccination: Yes History of Influenza Vaccine: Yes Physical Exam - Physical Exam General Appearance: Present: wd/wn, alert, no apparent distress Eye Exam: Normal inspection: bilateral, PERRL: bilateral, EOMI: bilateral Respiratory: Present: no respiratory distress, normal breath sounds, no accessory muscle use, chest nontender, lungs clear Cardiovascular/Chest: Present: regular rate, rhythm, no murmur, normal peripheral pulses Gastrointestinal/Abdominal: Present: normal bowel sounds, nontender, nondistended, soft, no organomegaly Extremity Exam: Present: normal inspection Neurological Exam: Present: alert, oriented, normal mood/affect, no motor/ sensory deficits Pelvic Exam: Present: active bleeding - mild very scant ED Progress - Date and Time Seen: Date and Time: 09/13/16 18:08 Pt. is not bleeding very much and she is not too thin on her coumadin so will have her follow up with her EDUCATIONAL TECHNOLOGY COORDINATOR in 2 days if not improving. - Results and Orders Patient's Lab Results:: I have reviewed the patient's lab results. - Vital Signs Patient's Vital Signs:: I have reviewed the patient's vital signs. Vital Signs: Vital Signs 09/13/16 09/13/16 16:40 17:14 Temperature 36.7 C 36.1 C L Pulse Rate 83 90 Respiratory 14 16 Rate Blood Pressure 167/80 188/81 O2 Sat by Pulse 100 96 Oximetry - Progress/Reassessment Chief Complaint: Genitourinary Problem Progress:: Unchanged Departure Clinical Impression: Bleeding from wound - Departure Disposition: Home self-care Condition: Good Instructions: Delayed Wound Closure Additional Instructions: Please follow up with Dr Coello in 2-3 days if no improvements. Referrals: Matheus Walters MD [Primary Care Provider] -
[2016-09-13 18:07] VITALS: BP 154/90
== END 2016-09-13 18:07 | disposition home or self-care (01) ==
LOC: ER 16:25
DX: N93.9 Abnormal uterine and vaginal bleeding, unspecified (principal); Z98.890 Other specified postprocedural states; Z79.01 Long term (current) use of anticoagulants

== ENCOUNTER 2016-12-04 17:01 | Emergency (ER) | payer MEDICARE ==
[2016-12-04 17:12] VITALS: BP 164/86
--- NOTE | 2016-12-04 17:49 | ERNOTE ---
Medical Problem HPI - General Chief Complaint: General Assessment Time Seen by Provider: 12/04/16 17:09 Source: patient Exam Limitations: no limitations - Immun/Allergies/Home Medications Immunizations: IMMUNIZATION HX Immunizations Up to Date Yes History of Influenza Vaccine Yes Hx Pneumococcal Vaccination No Allergies/Adverse Reactions: Allergies ciprofloxacin [From Cipro] Allergy (Verified 12/04/16 17:12) ciprofloxacin HCl [From Cipro] Allergy (Verified 12/04/16 17:12) Iodinated Contrast- Oral and IV Dye Allergy (Verified 12/04/16 17:12) Sulfa (Sulfonamide Antibiotics) [Sulfa(Sulfonamide Antibiotics)] Allergy ( Verified 12/04/16 17:12) Home Medications: HOME MEDICATIONS Cholecalciferol [Vitamin D] 600 units PO DAILY 10/11/12 [Last Taken 11/21/15 22: 00] Levothyroxine Sodium [Synthroid] 75 mcg PO DAILY 10/11/12 [Last Taken 11/22/15 07:00] Multivitamins [Multivitamin Betty] 1 cap PO DAILY 10/11/12 [Last Taken 22:00] [place]-3/Dha/Epa/Fish Oil [Fish Oil Dr 500 mg Softgel] 3,000 mg PO DAILY [Last Taken 11/21/15 22:00] Ubidecarenone [Co Q-10] 100 mg PO DAILY 10/11/12 [Last Taken 11/21/15 22:00] Valsartan [Diovan] 80 mg PO DAILY 10/11/12 [Last Taken 11/21/15 22:00] Ascorbic Acid [Vitamin C] 1,000 mg PO BID 10/25/12 [Last Taken 11/21/15 22:00] Calcium Carbonate [Tums] 1,000 mg PO DAILY #0 tab.chew 11/20/12 [Last Taken 15:00] Acetaminophen [Tylenol] 650 mg PO Q4H PRN 09/09/13 [Last Taken Unknown] Acyclovir [Zovirax] 400 mg PO BID PRN 01/06/14 [Last Taken Unknown] Atorvastatin Calcium [Lipitor] 40 mg PO HS 02/18/14 [Last Taken 11/21/15 22:00] Warfarin Sodium [Coumadin] 5 mg PO SUMOTUTHFRSA 08/07/16 [Last Taken Unknown] Warfarin Sodium [Coumadin] 2.5 mg PO WE 10/25/16 [Last Taken Unknown] Wheat Dextrin [Benefiber] 1 each PO DAILY 10/25/16 [Last Taken Unknown] Hydrocortisone/Pramoxine [Proctofoam-Hc 1%-1% Foam] 10 gm RC BID #10 foam [Last Taken Unknown] - History of Present History Narrative: Patient continues with mild pain with some itching from her hemorrhoids. This been an ongoing problem for the last 3-4 months and she was actually seen by me approximately 3 months ago in August. She was given steroid suppositories from me then and did improve somewhat and she's been doing sitz baths. She states it 's only mild discomfort. Timing: other - improving slowly Severity: mild Review of Systems - Review of Systems Constitutional: Present: See HPI EYE: Present: no symptoms reported ENT: Present: no symptoms reported Respiratory: Present: no symptoms reported Cardiology: Present: no symptoms reported Gastrointestinal/Abdominal: Present: other - symptoms continuing irritation from the hemorrhoid Genitourinary: Present: no symptoms reported Musculoskeletal: Present: no symptoms reported Skin: Present: no symptoms reported Neurological: Present: no symptoms reported Endocrine: Present: no symptoms reported Hematologic/Lymphatic: Present: no symptoms reported Psych: Present: no symptoms reported - Patient's Past Medical History Patient History - Medical: Hypothyroidism, Other - hemorrhoids Patient History - Cardiac/Respiratory: Deep Vein Thrombosis, Hypertension, Hyperlipidemia Patient History - Cancer: No Hx of Cancer Patient History - Surgical Procedures: D & C, Other Patient History - Other: None LMP (females 10-50): Menopausal - Family History Father Family History - Medical: Family History - Cardiac/Respiratory: Coronary Heart Disease Mother Family History - Medical: Family History - Cardiac/Respiratory: Coronary Heart Disease - Social History Living Situations: home Abuse History: No History of abuse Psych History: No pertinent hx Does anyone smoke in the home?: No Smoking Status: Never smoker Alcohol Use: none Drug Use: none - Immunizations Immunizations Up to Date: Yes Hx Pneumococcal Vaccination: No History of Influenza Vaccine: Yes Physical Exam - Physical Exam General Appearance: Present: wd/wn, alert, mild distress Eye Exam: Normal inspection: bilateral, PERRL: bilateral Ears, Nose, Throat: Present: normal ENT inspection, H, normal pharynx Neck: Present: normal inspection, nontender Respiratory: Present: no respiratory distress, normal breath sounds, no accessory muscle use, chest nontender, lungs clear Cardiovascular/Chest: Present: regular rate, rhythm, no murmur, normal peripheral pulses Gastrointestinal/Abdominal: Present: normal bowel sounds, nontender, nondistended, soft, no organomegaly Rectal Exam: Present: other - no obvious external hemorrhoids were noted however on rectal exam there appeared to be one internal hemorrhoid at the very end of my reach Back Exam: Present: normal inspection, normal range of motion Extremity Exam: Present: normal inspection, non-tender, no edema, normal range of motion Neurological Exam: Present: alert, oriented, normal mood/affect Skin Exam: Present: normal color, warm/dry Lymphatic Exam: Present: no adenopathy ED Progress - Vital Signs Patient's Vital Signs:: I have reviewed the patient's vital signs. Vital Signs: Vital Signs 12/04/16 17:07 Temperature 36.5 C Pulse Rate 90 Respiratory 16 Rate Blood Pressure 164/86 O2 Sat by Pulse 97 Oximetry - Progress/Reassessment Chief Complaint: General Assessment Plan - Plan Plan: Patient was given a prescription for Proctofoam HC and she was given Dr. Draper' s phone number and she will call him to arrange for colonoscopy. Patient was instructed to continue with the sitz baths as those appear to be working and she agrees to follow up with her family physician as needed. Departure - Departure Clinical Impression: Hemorrhoid Qualifiers: Hemorrhoid type: other Qualified Code(s): K64.8 - Other hemorrhoids Disposition: Home self-care Condition: Good Instructions: Hemorrhoids, [id number] Referrals: Matheus Walters MD [Primary Care Provider] - Cheryl Draper MD [Staff Physician] - Prescriptions: Hydrocortisone/Pramoxine [Proctofoam-Hc 1%-1% Foam] 10 gm RC BID #10 foam
== END 2016-12-04 17:56 | disposition home or self-care (01) ==
LOC: ER 17:01
DX: K64.8 Other hemorrhoids (principal); E03.9 Hypothyroidism, unspecified; Z86.718 Personal history of other venous thrombosis and embolism; Z79.01 Long term (current) use of anticoagulants; I10 Essential (primary) hypertension; E78.5 Hyperlipidemia, unspecified

== ENCOUNTER 2019-12-05 09:21 | Observation (INO) ==
[2019-12-05] MEDS ORDERED: NORMAL SALINE 1,000 ML IV PRN (10:41)
[2019-12-05] MEDS: NORMAL SALINE 1,000 ML IV PRN ×2 (11:50→16:02)
--- NOTE | 2019-12-05 12:34 | PN ---
Renae Note - Interim Date: 12/05/19 Time: 12:31 Narrative: 12/05/19 12:31 I saw and examined the patient on the floor on 12/05/2019. She is feeling better and eating lunch. Will review labs and imaging studies when available. My clinic notes will serve as my H and P for this admission. 12/05/19 13:32 CBC shows anemia, chronic though. Leukocytosis likely reactive to stress of hypotension. if persist will need to look into her shoulder more. 12 lead EKG showed NSR. CMP shows lid low Na of 129 and alb of 3.3. CXR unofficially shows no widening of the mediastinum. Continue with IVF. awaiting troponin. will increase her tramadol to 50 mg 1 tab PO q 6 H instead of 1/2 tab. Will sign out to Dr. Clark.
[2019-12-05 12:53] LABS: Hemoglobin 10.6 gm/dL (12.5-16.0); Mean Cell Volume 94.8 fl (78-100); Mean Corpuscular Hemoglobin 30.5 pg (27-31); Mean Corpuscular Hgb Conc 32.1 g/dl (32-36); Neutrophil # 9.7 K/mm3 (1.3-6.0); Neutrophil % 84.2 % (42-75.0); Platelet Count 276 K/mm3 (150-450); Red Blood Count 3.48 M/mm3 (4.2-5.4); Red Cell Distribution Width 13.1 % (11.5-14.0); White Blood Count 11.6 K/mm3 (4.0-10.5)
[2019-12-05 13:15] LABS: Albumin * 3.3 gm/dl (3.4-5.0); BUN/Creatinine Ratio 24.5 (9.0-21.6); Bilirubin, Total 0.7 mg/dL (0.0-1.1); Ca. Corrected For Albumin 9.5 mg/dL (8.4-10.2); Calcium * 9.3 mg/dL (7.9-10.9); Carbon Dioxide 27.8 mmol/L (24-32.6); Potassium 3.8 mmol/L (3.4-4.6); Total Protein 6.7 gm/dL (6.2-8.2)
[2019-12-05] MEDS ORDERED: ACETAMINOPHEN 325 MG TABLET PO PRN (13:37)
[2019-12-05] MEDS ORDERED: NITROGLYCERIN 0.4 MG/TAB BTL SL PRN (13:37)
[2019-12-05] MEDS: traMADol HCL 50 MG TABLET PO PRN (15:08)
[2019-12-05] MEDS ORDERED: ROSUVASTATIN CALCIUM 20 MG TABLET PO SCH (21:00)
[2019-12-05 22:48] LABS: Urine Bilirubin Negative (NEGATIVE); Urine Blood Negative /ul (NEGATIVE); Urine Ketone Negative (NEGATIVE); Urine Nitrite Negative (NEGATIVE); Urine Protein Negative (NEGATIVE); Urine Specific Gravity <=1.005 SP.GR. (1.005-1.010); Urine Urobilinogen Normal (NORMAL)
[2019-12-05 23:07] LABS: Urine Appearance Clear (CLEAR); Urine Bacteria TRACE; Urine Color Yellow; Urine RBC None Seen /hpf (0-5); Urine WBC None Seen /hpf (0-5)
[2019-12-06] MEDS: NORMAL SALINE 1,000 ML IV PRN (02:28)
[2019-12-06] MEDS: traMADol HCL 50 MG TABLET PO PRN (04:27)
[2019-12-06] MEDS ORDERED: LEVOTHYROXINE SODIUM 75 MCG TABLET PO SCH (07:00)
[2019-12-06 07:06] LABS: Hematocrit 31.1 % (37.0-47.0); Mean Cell Volume 94.5 fl (78-100); Mean Corpuscular Hemoglobin 30.4 pg (27-31); Mean Corpuscular Hgb Conc 32.2 g/dl (32-36); Mean Platelet Volume 8.8 fl (8-12.5); Neutrophil # 6.1 K/mm3 (1.3-6.0); Neutrophil % 73.7 % (42-75.0); Platelet Count 239 K/mm3 (150-450); Red Blood Count 3.29 M/mm3 (4.2-5.4); Red Cell Distribution Width 12.9 % (11.5-14.0); White Blood Count 8.3 K/mm3 (4.0-10.5)
[2019-12-06 07:21] LABS: Anion Gap 9.5 mmol/L (6.8-13.8); BUN/Creatinine Ratio 19.8 (9.0-21.6); Calcium * 8.8 mg/dL (7.9-10.9); Carbon Dioxide 26.7 mmol/L (24-32.6); Estimated Creat Clear 39.4; Potassium 4.2 mmol/L (3.4-4.6)
[2019-12-06 07:22] LABS: INR 2.68 INR (0.92-1.08); Prothrombin Time (Patient) 25.5 Seconds (9.1-10.7)
[2019-12-06] MEDS ORDERED: POLYETHYLENE GLYCOL 3350 17 GM PACKET PO SCH (09:00)
[2019-12-06] MEDS ORDERED: Ubidecarenone [Co Q-10] 100 MG PO SCH (09:00)
[2019-12-06] MEDS ORDERED: CHOLECALCIFEROL 400 UNIT TABLET PO SCH (09:00)
--- NOTE | 2019-12-06 10:01 | DS ---
(1) Hyponatremia Problem: Resolved Date of Discharge:: 12/06/19 Hospital Course: Mary was admitted due to symptomatic hyponatremia with lightheadedness. She was admitted and given fluids. Her sodium was 129 on admission and today it is back to normal. She is feeling well and ready to go home. Will discharge to home with follow up with Dr. Walters in a week. Procedures Performed: none Results and Findings: Lab Pending Results 12/05/19 12:40: WBC 11.6 H, RBC 3.48 L, Hgb 10.6 L, Hct 33.0 L, MCV 94.8, MCH 30.5, MCHC 32.1, RDW 13.1, Plt Count 276, MPV 9.0, Immature Gran % (Auto) 0.40, Immature Gran # (Auto) 0.05 H, Neutrophils % 84.2 H, Lymphocytes % 9.2 L, Monocytes % 5.5, Eosinophils % 0.6, Basophils % 0.1, Nucleated RBC % 0.0, Neutrophils # 9.7 H, Lymphocytes # 1.07 L, Monocytes # 0.6, Eosinophils # 0.1, Absolute Basophils 0.0 12/05/19 12:40: Sodium 129 L, Plasma Sodium 130, Potassium 3.8, Chloride 96 L, Carbon Dioxide 27.8, Anion Gap 9.0, BUN 23 D, Creatinine 0.94, Est GFR (Non-Af Amer) 61, BUN/Creatinine Ratio 24.5 H, Random Glucose 137 H, Calcium 9.3, Calcium Adj for Albumin 9.5, Total Bilirubin 0.7, AST 32, ALT 39, Alkaline Phosphatase 70, Total Protein 6.7, Albumin 3.3 L 12/05/19 12:40: Troponin I Less than 0.017 12/05/19 22:20: Urine Color Yellow, Urine Appearance Clear, Urine pH 6.0, Ur Specific Mills <=1.005, Urine Protein Negative, Urine Glucose (UA) Negative, Urine Ketones Negative, Urine Blood Negative, Urine Nitrate Negative, Urine Bilirubin Negative, Urine Urobilinogen Normal, Ur Leukocyte Esterase 75 H, Urine RBC None seen, Urine WBC None seen, Ur Epithelial Cells 0-5, Urine Bacteria Trace, Urine Culture Comments Culture to follow 12/06/19 06:40: WBC 8.3 D, RBC 3.29 L, Hgb 10.0 L, Hct 31.1 L, MCV 94.5, MCH 30.4, MCHC 32.2, RDW 12.9, Plt Count 239, MPV 8.8, Immature Gran % (Auto) 0.40, Immature Gran # (Auto) 0.03, Neutrophils % 73.7, Lymphocytes % 15.4 L, Monocytes % 8.3, Eosinophils % 1.8, Basophils % 0.4, Nucleated RBC % 0.0, Neutrophils # 6.1 H, Lymphocytes # 1.27 L, Monocytes # 0.7, Eosinophils # 0.2, Absolute Basophils 0.0 12/06/19 06:40: Sodium 134, Plasma Sodium 134, Potassium 4.2, Chloride 102, Carbon Dioxide 26.7, Anion Gap 9.5, BUN 18, Creatinine 0.91, Est GFR (Non-Af Amer) 63, BUN/Creatinine Ratio 19.8, Random Glucose 88 D, Calcium 8.8 12/06/19 06:40: PT 25.5 H, INR (Anticoag Therapy) 2.68 H Discharge Location: Home Disposition: Home self-care Condition: Good Discharge Activity: Activity as tolerated Discharge Diet: General/regular food Referrals: Matheus Walters MD [Primary Care Provider] - One Week Problem Oriented Discharge Instructions to Patient/Family: Near-Syncope, [id number] Complete Home Medications List: Complete Home Medication List: Cholecalciferol [Vitamin D] 600 units PO DAILY 10/11/12 Multivitamins [Multivitamin Betty] 1 cap PO DAILY 10/11/12 [place]-3/Dha/Epa/Fish Oil [Fish Oil Dr 500 mg Softgel] 4,000 mg PO DAILY 10/11/12 Ubidecarenone [Co Q-10] 100 mg PO DAILY 10/11/12 Ascorbic Acid [Vitamin C] 1,000 mg PO DAILY 10/25/12 Acetaminophen [Tylenol] 650 mg PO Q4H PRN 09/09/13 Calcium Carbonate [Tums] 1,125 mg PO DAILY 08/08/17 Nitroglycerin 0.4 mg SL .Q 5MIN PRN,X3ONLY PRN 08/08/17 acyclovir 400 mg tablet 400 mg PO BID PRN #60 tab 07/30/18 warfarin 2.5 mg tablet 7.5 mg PO .WEEKLY FRI #30 tab 08/02/18 polyethylene glycol 3350 17 gram/dose oral powder 17 g PO DAILY #119 g 11/06/18 atorvastatin 40 mg tablet 40 mg PO HS #90 tab 03/21/19 Synthroid 75 mcg tablet 75 mcg PO DAILY #90 tab NS 06/23/19 losartan 50 mg tablet 50 mg PO DAILY #90 tab 06/23/19 warfarin 5 mg tablet 5 mg PO .SUNMOTUWETHSAT #90 tab 06/23/19 Wheat Dextrin [Benefiber] 1 ea PO PRN PRN 11/29/19
[2019-12-06 10:39] VITALS: BP 145/80
[2019-12-06] MEDS ORDERED: WARFARIN SODIUM 5 MG TABLET PO SCH (17:00)
[2019-12-12] MEDS ORDERED: WARFARIN SODIUM 2.5 MG TABLET PO SCH (17:00)
== END 2019-12-06 11:30 | disposition home or self-care (01) ==
LOC: CCFAL → MS 09:21
PROVIDERS: ADMIT Internal Medicine; ATTEND Internal Medicine
DX: I38 Endocarditis, valve unspecified; I25.10 Atherosclerotic heart disease of native coronary artery without angina pectoris; M25.512 Pain in left shoulder; E78.00 Pure hypercholesterolemia, unspecified; E03.9 Hypothyroidism, unspecified; M25.511 Pain in right shoulder; I95.1 Orthostatic hypotension; E87.1 Hypo-osmolality and hyponatremia; I10 Essential (primary) hypertension

== ENCOUNTER 2020-08-09 06:20 | Observation (INO) ==
[~2020-08-09 06:20] MED LIST: MORPHINE SULFATE 15 MG TABLET.SA PO PRN; RINGER'S SOLUTION,LACTATED 1,000 ML IV PRN; TRANEXAMIC ACID IN NACL,ISO-OS 1,000 MG/100 ML BAG IV PRN; ceFAZolin SODIUM 1 GM VIAL IV PRN
[2020-08-09] MEDS ORDERED: ceFAZolin SODIUM 1 GM VIAL ONE (06:43)
[2020-08-09] MEDS ORDERED: ISOPROPYL ALCOHOL 480 APPL BTL MC ONE (06:43)
[2020-08-09] MEDS ORDERED: BUPIVACAINE HCL 50 ML VIAL IJ ONE (07:08)
[2020-08-09] MEDS ORDERED: LIDOCAINE HCL 20 ML VIAL ONE (07:08)
[2020-08-09] MEDS ORDERED: PROPOFOL VIAL IV ONE (07:08)
[2020-08-09] MEDS ORDERED: NORMAL SALINE 20 ML VIAL ONE (07:08)
--- NOTE | 2020-08-09 07:35 | ANES ---
Anesthesia Pre Procedure Eval Vitals/Labs: Last Vital Signs Temp 36.6 C 08/09/20 06:43 Pulse 90 08/09/20 06:43 Resp 18 08/09/20 06:43 BP 136/75 08/09/20 06:43 Pulse Ox 97 08/09/20 06:43 HOME MEDICATIONS Cholecalciferol [Vitamin D] 600 units PO DAILY 10/11/12 [Last Taken 08/08/17] Multivitamins [Multivitamin Betty] 1 cap PO DAILY 10/11/12 [Last Taken 08/08/17] [place]-3/Dha/Epa/Fish Oil [Fish Oil Dr 500 mg Softgel] 4,000 mg PO DAILY 10/11/12 [Last Taken 08/08/17] Ubidecarenone [Co Q-10] 100 mg PO DAILY 10/11/12 [Last Taken 08/08/17] Ascorbic Acid [Vitamin C] 1,000 mg PO DAILY 10/25/12 [Last Taken 08/08/17] Acetaminophen [Tylenol] 650 mg PO Q4H PRN 09/09/13 [Last Taken Unknown] Calcium Carbonate [Tums] 1,125 mg PO DAILY 08/08/17 [Last Taken 08/08/17] Nitroglycerin 0.4 mg SL .Q 5MIN PRN,X3ONLY PRN 08/08/17 [Last Taken Unknown] polyethylene glycol 3350 17 gram/dose oral powder 17 g PO DAILY #119 g 11/06/18 [Last Taken Unknown] Wheat Dextrin [Benefiber] 1 ea PO PRN PRN 11/29/19 [Last Taken Unknown] losartan 50 mg tablet 50 mg PO DAILY #90 tab 03/18/20 [Last Taken Unknown] atorvastatin 40 mg tablet 40 mg PO HS #90 tab 06/16/20 [Last Taken Unknown] Synthroid 75 mcg tablet 75 mcg PO DAILY #90 tab NS 06/17/20 [Last Taken Unknown] Warfarin Sodium [Coumadin] 5 mg PO DAILY 08/09/20 [Last Taken 08/03/20 07:00] Allergies/Adverse Reactions: Allergies Allergy/AdvReac Type Severity Reaction Status Date / Time diclofenac Allergy Mild Other Verified 08/09/20 06:52 ceftriaxone [From Rocephin] Allergy Unknown yvetteky, Verified 08/09/20 06:52 dizziness ciprofloxacin [From Cipro] Allergy Unknown unknown Verified 08/09/20 06:52 ciprofloxacin HCl Allergy Unknown unknown Verified 08/09/20 06:52 [From Cipro] Iodinated Contrast Media Allergy Unknown unknown Verified 08/09/20 06:52 Sulfa (Sulfonamide Allergy Unknown unknown Verified 08/09/20 06:52 Antibiotics) [Sulfa(Sulfonamide Antibiotics)] sulfamethoxazole Allergy Unknown unknown Verified 08/09/20 06:52 [From Bactrim] trimethoprim [From Bactrim] Allergy Unknown unknown Verified 08/09/20 06:52 valacyclovir [From Valtrex] Allergy Unknown RASH Verified 08/09/20 06:52 guaifenesin [From Mucinex] AdvReac Intermediate dizzy, Verified 08/09/20 06:52 stomach pain, diarrhea - Planned Procedure Planned Procedure: R Arthroplasty Total Shoulder Reverse Medication List Reviewed:: Yes Allergies Verified: Yes Medical History (Last Reviewed 08/09/20 @ 07:34 by Fernando Almaraz CRNA) COVID-19 vaccine administered (Acute) Seasonal allergic rhinitis (Acute) Encounter for pessary maintenance (Acute) Patient without complaints Pessary cleaned and replaced No evidence of vaginal erosion Has received influenza vaccination in current influenza season (Acute) Onset Date: 12/2017 Osteopenia (Acute) Contusion, knee and lower leg (Acute) Vaginal bleeding (Acute) Fall (Acute) Nasal fracture (Acute) reduced Facial laceration (Acute) healed Arm laceration (Acute) Hematoma (Chronic) barely visible CAD (coronary artery disease) (Chronic) s/p JAH in 2010 Anemia (Acute) Contusion (Acute) Hyperlipidemia (Chronic) Hypothyroidism (Chronic) Pain (Acute) Thoracic outlet syndrome (Acute) Syncope (Resolved) Constipation (Acute) Urinary tract infection (Acute) Nausea and vomiting in adult (Acute) Weakness generalized (Acute) Constipation by delayed colonic transit (Acute) DVT (deep venous thrombosis) (Chronic) History of recurrent DVT Skin tear of hand without complication (Acute) Hemorrhoid (Acute) Bleeding from wound (Acute) Hyponatremia (Resolved) Feeling unwell (Acute) Hypertension (Chronic) Adnexal mass Onset Date: ~2012 Arthritis Onset Date: Unknown Coronary artery disease Onset Date: ~2010 status post Promus 3.0 x 23 mm drug-eluting stent [place] the L[place] [address] Sing[place] in [place], [place] Essential hypertension Onset Date: ~2013 Hypercholesteremia Onset Date: Unknown Hyperlipidemia Onset Date: Unknown Mitral regurgitation Onset Date: Unknown Shoulder impingement Onset Date: ~2012 Splenic artery aneurysm Onset Date: Unknown Uterovaginal prolapse Onset Date: ~2016 Aneurysm Onset Date: Unknown cerebral Biceps tendon rupture Onset Date: Unknown DVT (deep venous thrombosis) Onset Date: ~2016 Lumbar spine strain Onset Date: ~2012 Rotator cuff rupture Onset Date: ~2012 Surgical History (Last Reviewed 08/09/20 @ 07:34 by Fernando Almaraz CRNA) H/O coronary angiogram Onset Date: ~2010 History of colonoscopy Onset Date: ~2011 History of coronary artery stent placement Onset Date: ~2010 History of dilation and curettage Onset Date: ~2009 History of removal of cyst Onset Date: ~2015 History of surgical removal of skin lesion Onset Date: ~2016 removal of benign tumor from back of neck - Procedure done in [place] while staying there for the winter. Family History (Last Reviewed 08/09/20 @ 07:34 by Fernando Almaraz CRNA) Mother , age 76, heart disease- bypass Heart disease Father , age 91, heart problems, bypass, [place] Heart disease Myocardial infarction Brother Hx of CABG - Family Anesthesia History Family History:: no untoward family reactions to anesthesia - Airway/Neck/Teeth Within Normal Limits:: Yes Teeth Condition: intact Neck Exam: full range of motion Mallampatti Score: 2 Thyromental (T-M) distance: > 6 cm - Respiratory Respiratory Physical: lungs clear Smoking Status: Never smoker Sleep Apnea currently treated: No Sleep Apnea by current assessment: No - Cardiovascular Cardiac History: CAD, hypertension, hyperlipidemia, PVD Tolerate Activity: Fair Heart Sounds: S1 & S2, Regular - Gastrointestinal NPO since: [place] - Anesthesia Assessment and Plan ASA Class: PS, III Anesthesia Type Plan: General LMA - interscalene nerve block Planned difficult intubation/equipment available: No
[2020-08-09] MEDS ORDERED: ONDANSETRON HCL/PF 2 MG/ML VIAL ONE (07:36)
--- NOTE | 2020-08-09 09:27 | OR ---
Operative Report - Dictated Report Narrative: DATE OF PROCEDURE: 08/09/2020 PHYSICIAN: Ted Love MD DOOR FURRING INSTALLER: Nigel Mendoza PA-C (provided and essential set of skilled, educated hands that assisted with transfer, positioning, prepping, draping, manipulation, retraction, placement of implants, irrigation, closure wounds, and application of dressings all which cannot be performed by the available surgical crew) PREOPERATIVE DIAGNOSIS: Right rotator cuff deficient shoulder arthrosis. POSTOPERATIVE DIAGNOSIS: Right rotator cuff deficient shoulder arthrosis. OPERATIONS AND PROCEDURES: Right reverse total shoulder arthroplasty. ANESTHESIA: General plus regional. COMPLICATIONS: None. DRAINS: None. SPECIMENS: Bone. ESTIMATED BLOOD LOSS: 50 mL. RETAINED IMPLANTS: 1. DePuy Delta Xtend cementless metaglene. 2. Delta Xtend glenosphere, 38 mm standard. 3. Global unite size 12 modular Por[place]oat cementless stem. 4. Size 1 right modular eccentric epiphysis KIM-coated cementless. 5. Delta Xtend standard polyethylene size 38 plus 9 mm. 6. Metaglene locking screws, 36 mm and 36 mm in length. 7. Nonlocking metaglene screws, 18 mm x 1 . INDICATIONS FOR PROCEDURE: Mrs. Samano is a 85-year-old female with significant past history of rotator cuff tears and deficiency. She had treated these c onservatively and had an irreparable rotator cuff with some progression of arthrosis of the shoulder and difficulty with activities of daily living in pain. She was seen in clinic and had failed conservative measures. She wished to proceed with surgical treatment. The risks, benefits, and alternatives were discussed in clinic, including the risk of , blood clots, bleeding, infection, nerve/tendon/blood vessel injury, malposition of components, failure of components, wear or limited range of motion, stiffness, and need for additional procedures, and she wished to proceed. Consent was obtained in the clinic. DESCRIPTION OF PROCEDURE: After marking the correct extremity in the preoperative holding area, the patient was taken to the operating room. A timeout was performed. IV antibiotics consisting of Ancef were administered prior to procedure. The regional followed by general anesthetic was induced by the nurse director of it operations at my request. She was then transitioned to beach chair position with all bony prominences well padded. The head in neutral, legs with SCDs and supported,and the nonoperative arm supported. The surgical arm was prescrubbed with alcohol then prepped and draped in the standard sterile fashion and the skin was covered with ioban. A deltopectoral incision was made and blunt dissection was carried down through the skin. The cephalic vein was identified, protected, and retracted. We then went through the deltopectoral interval, exposing the proximal humerus. It was noted that there was no rotator cuff, supraspinatus and infraspinatus tendon, or teres minor tendon. The subscapularis was intact as well as the biceps. A tag suture was placed in subscapularis tendon as well as the anterior capsule, and this was elevated off the anterior humerus passing along the bicipital groove and into the rotator cuff interval, exposing the proximal humerus. This was then freed off the proximal humerus. A biceps tenotomy was performed and the shoulder was dislocated. The humeral head was noted to show signs of arthrosis. Next, an entry drill was placed down the humerus centered on the longitudinal axis entering off just onto the articular surface on the humeral head. Next were serial reamers up to the size 12 were utilized, which gave good overall cortical contact. Next, a proximal humeral head cut was performed. We made the cut at approximately 10 degrees of retroversion. This appeared to resect an appropriate amount of humeral head. This was then pinned into place and an oscillating saw was utilized to cut this humeral head, protecting the surrounding soft tissues. We then placed a cap over the proximal humerus and turned our attention to the glenoid. The soft tissues were then elevated off the humeral neck as well as circumferentially around the glenoid. The glenoid was exposed. The remaining biceps tendon and labrum were resected. Using tractors, the glenoid was exposed and a guidewire was placed just posterior and inferior to the center of the glenoid. This was made so that it directed slightly superiorly but otherwise perpendicular to the glenoid on the axillary plane. Protecting the surrounding soft tissues, a reamer was utilized in order to remove the remaining cartilage. A hand spring former was utilized in order to resect the superior cartilage, and this resulted in a good overall appearance of the glenoid. The center drill lug hole was drilled and had good circumferential bone. The metaglene was then impacted into place and oriented for placement of screws along the mid plane in the superior and inferior quadrants of the glenoid as well as anterior to posterior screws. These were drilled and had appropriate overall length of screws on the superior and inferior metaglene screws. Good purchase was obtained with a 36 mm screw superiorly and 36 mm screw inferiorly. The anterior and posterior screws were drilled and 18 mm anterior nonlocking screw was placed. We then locked the superior and inferior screws into place. This gave good overall compression down to the glenoid with flat overall appearance and an appropriate alignment. We returned our attention to the proximal humerus. The proximal humeral reaming guide was placed for an eccentric reamer. This was utilized in order to prepare the proximal humerus. The trial stem was assembled on the back table and impacted into place. After placing the trial stem, we then returned to the metaglene. The glenosphere was then secured to the metaglene, impacted, and tightened ensuring that this was seated completely. We then returned to the humeral component and placed the trials of polyethylene inserts and found that the 9mm gave good overall longitudinal traction with no gapping. The shoulder was able to reach 160 degrees of forward flexion and 140 degrees of abduction, external rotation was to 90 degrees and with fulcrum and armpit were unable to hinge the joint out of place, and there was no essentially no gapping of the polyethylene off the humeral head nor any signs of impingement on the glenoid neck. We felt that these were the appropriately placed and sized implants. We then dislocated the shoulder, removed the trial implants, thoroughly irrigated the humerus, impacted the final implants into place in the prior determined retroversion. The trial polyethylene was utilized again and was noted that the actual stem and the trial stem were equal in tension, and thus the final polyethylene was impacted into place. The shoulder was reduced, again noted to be stable, was then thoroughly irrigated. The deltopectoral interval was closed with #0 Vicryl. The deep tissues were then closed with #0 Vicryl, subcutaneous with 3-0 Monocryl, and the skin with billie. Xeroform, 4 x 4, ABD, soft roll, and full arm Ash was applied. The patient was placed in a shoulder sling, awoken, and transferred to postanesthesia care in stable condition. All sponge, needle, and instrument counts were correct prior to closing the wounds. We will obtain postoperative films and be admitted to the floor for postoperative pain control, IV antibiotics, and starting of physical therapy. I anticipate a one to two night hospital stay.
[2020-08-09] MEDS ORDERED: MAG HYDROX/ALUMINUM HYD/SIMETH 30 ML UDC PO PRN (09:28)
[2020-08-09] MEDS ORDERED: ONDANSETRON HCL/PF 2 MG/ML VIAL IV PRN (09:28)
[2020-08-09] MEDS ORDERED: ZOLPIDEM TARTRATE 5 MG TABLET PO PRN (09:28)
[2020-08-09] MEDS ORDERED: DEXTROSE 5%-LACTATED RINGERS 1,000 ML IV PRN (09:28)
[2020-08-09] MEDS ORDERED: MORPHINE SULFATE 2 MG/ML DISP.SYRIN IV PRN (09:28)
[2020-08-09] MEDS ORDERED: ACETAMINOPHEN 500 MG TABLET PO PRN (09:28)
[2020-08-09] MEDS ORDERED: MAGNESIUM HYDROXIDE 30 ML UDC PO PRN (09:28)
[2020-08-09] MEDS ORDERED: diphenhydrAMINE HCL 50 MG/ML VIAL IV PRN (09:28)
[2020-08-09] MEDS ORDERED: NITROGLYCERIN 0.4 MG/TAB BTL SL PRN (09:31)
[2020-08-09] MEDS ORDERED: PSYLLIUM SEED 1 PACKET PACKET PO PRN (09:46)
--- NOTE | 2020-08-09 09:49 | ANES ---
Post Anesthesia Discharge - Transfer of Care Transfer of Care handoff given to nurse: Yes - Discharge from PACU Discharge from PACU when meets criteria: Yes
--- NOTE | 2020-08-09 09:53 | ANES ---
Anesthesia Procedure Note Procedure Note: ANESTHESIA PROCEDURE NOTE Date of procedure: 08/09/2020. Time of procedure: 11 09. Performed by: Higinio Almaraz CRNA Deckhand Sponge Boat: Alka Trivedi RN . Preprocedure diagnosis: Right shoulder DJD.. Post procedure diagnosis: Same. Procedure: Ultrasound-guided right interscalene nerve block Indications: Postoperative analgesia. Findings: Patient was brought to operating room #4 and given a general anesthetic induction with LMA insertion. Patient was then placed in semi- Fowlers position. The right side of patient's neck was prepped with ChloraPrep. Ultrasound utilized to identify the brachial plexus in the right interscalene groove. A 22-gauge 2 inch regional block needle was advanced under ultrasound guidance until tip of needle was placed just anterior to brachial plexus. Nerve stimulator was also utilized with muscle twitch noted with decreasing intensity from 0.8 mA to 0.5 mA. Muscle twitch disappeared at 0.5 mA. 15 mL of 0.5% Marcaine was injected with adequate spread of local anesthesia noted around the nerve roots. Regional block needle was repositioned and placed just posterior to brachial plexus. Visualization of tip of needle was maintained throughout procedure. A second dose of 15 mL of 0.5% Marcaine was injected again with adequate spread of local anesthesia noted. Regional block needle was removed intact. EBL: Minimal. Fluids: N/A. Specimen: N/A. Post procedure condition: The patient tolerated the procedure well. No complications were noted. Thank you for this consultation Higinio Almaraz CRNA
[2020-08-09] MEDS: ceFAZolin SODIUM 1 GM in DEXTROSE 5 % IN WATER 100 ML IV SCH ×6 (12:29→23:24)
--- NOTE | 2020-08-09 13:35 | ANES ---
Post Anesthesia Assessment - Vital Signs Vitals: Last Vital Signs Temp 36.0 C 08/09/20 11:45 Pulse 85 08/09/20 13:00 Resp 16 08/09/20 13:00 BP 109/60 08/09/20 13:00 Pulse Ox 96 08/09/20 13:00 Airway Patency: Normal - Mental Status Level Of Consciousness: Awake - Pain Level Pain Score: 0 - N/V Assessment Nausea/Vomiting Presence: None Dehydration:: No
[2020-08-09] MEDS ORDERED: WARFARIN SODIUM 5 MG TABLET PO SCH (17:00)
[2020-08-09] MEDS ORDERED: ROSUVASTATIN CALCIUM 20 MG TABLET PO SCH (21:00)
[2020-08-09] MEDS ORDERED: SENNOSIDES/DOCUSATE SODIUM 1 TAB TABLET PO SCH (21:00)
[2020-08-09] MEDS: HYDROcodone/ACETAMINOPHEN 1 EACH TABLET PO PRN (21:25)
[2020-08-10] MEDS: HYDROcodone/ACETAMINOPHEN 1 EACH TABLET PO PRN ×3 (02:06→09:07)
[2020-08-10] MEDS ORDERED: LEVOTHYROXINE SODIUM 75 MCG TABLET PO SCH (07:00)
[2020-08-10] MEDS ORDERED: MULTIVITAMINS 1 CAP CAPSULE PO SCH (09:00)
[2020-08-10] MEDS ORDERED: CHOLECALCIFEROL 400 UNIT TABLET PO SCH (09:00)
[2020-08-10] MEDS ORDERED: OMEGA-3 FATTY ACIDS 1 CAP CAPSULE PO SCH (09:00)
[2020-08-10] MEDS ORDERED: CALCIUM CARBONATE 500 MG TAB.CHEW PO SCH (09:00)
[2020-08-10] MEDS ORDERED: POLYETHYLENE GLYCOL 3350 17 GM PACKET PO SCH (09:00)
[2020-08-10] MEDS ORDERED: ASCORBIC ACID 500 MG TABLET PO SCH (09:00)
[2020-08-10] MEDS ORDERED: LOSARTAN POTASSIUM 50 MG TABLET PO SCH (09:00)
[2020-08-10] MEDS ORDERED: COENZYME Q10 150 MG PO SCH (09:00)
[2020-08-10] MEDS ORDERED: HYDROcodone/ACETAMINOPHEN 1 EACH TABLET PO PRN (10:08)
--- NOTE | 2020-08-10 10:25 | DS ---
(1) Status post reverse arthroplasty of right shoulder Problem: Acute (2) Osteopenia Problem: Chronic (3) CAD (coronary artery disease) Problem: Chronic Qualifiers: (4) DVT (deep venous thrombosis) Problem: Chronic (5) Hyperlipidemia Problem: Chronic Qualifiers: (6) Hypertension Problem: Chronic Qualifiers: (7) Hypothyroidism Problem: Chronic Qualifiers: (8) Mild valvular heart disease Problem: Chronic Date of Discharge:: 08/10/20 Hospital Course: Mrs. Samano was admitted to the floor after undergoing right total shoulder arthroplasty. Tolerated this well. Was admitted to the floor postoperatively for 24 hours of IV antibiotics, pain control, medical comanagement, and occupational and physical therapy. OT and PT were consulted to assist with activities of daily living and ambulation. Was made non-weightbearing with restricted external rotation. She was placed in a shoulder immobilizer.. Pain was initially controlled with IV regimen. This was transitioned to oral once tolerating a by mouth intake. Was resumed on home diet and medications. A Hanson catheter was inserted in the operating room which was discontinued by postoperative day 1. Coumadin and SCDs were utilized for DVT prophylaxis. Vital signs remained stable to the hospital course. Physical examination throughout the hospital course showed an extremity that had sensation that was intact to light touch, palpable pulses, a benign wound, motor intact to the wrists, fingers, and elbow. Once an oral pain regimen was tolerated and physical therapy goals were met, it was felt that they were stable for discharge to home. Instructions: Continue with non-weightbearing and restricted external rotation. Use the immobilizer as instructed. Do not bathe or soak the wound. Keep the wound clean and dry and cover with dry gauze and tape. Change every 2-3 days as needed if there is any drainage. Cover wound while showering. Continue with physical therapy. Resume home diet. Report any fever over 101.5 Fahrenheit, uncontrolled pain, increased drainage, foul odor of drainage, new or increased calf pain or shortness of breath, or any other significant complaints. 325mg twice daily aspirin will be continued until instructed otherwise. No driving until instructed otherwise. Follow up in approximately 2-3 weeks. Procedures Performed: see notes below List Procedures: Right reverse shoulder arthroplasty Disposition: Home self-care Condition: Good Discharge Activity: Non-Weight bearing Discharge Diet: General/regular food Referrals: Matheus Walters MD [Primary Care Provider] - Additional Patient Instructions (free text): Physical Therapy at [facility] outpatient rehab on August 12 at 8:15am. Follow up [facility] Orthopedic office appointment on SundayAugust 24 at 9:45am. Prescriptions (Any new or edited meds): HYDROcodone/ACETAMINOPHEN [[place] 5-325] 1 - 2 ea PO Q4H PRN #50 tab PRN Reason: Pain Transmission Status: Received by [facility] #[id number] Sennosides/Docusate Sodium [Senokot-S] 2 tab PO HS #60 tab Transmission Status: Pending to [facility] #[id number] Complete Home Medications List: Complete Home Medication List: Cholecalciferol [Vitamin D] 600 units PO DAILY 10/11/12 Multivitamins [Multivitamin Betty] 1 cap PO DAILY 10/11/12 [place]-3/Dha/Epa/Fish Oil [Fish Oil Dr 500 mg Softgel] 4,000 mg PO DAILY 10/11/12 Ubidecarenone [Co Q-10] 100 mg PO DAILY 10/11/12 Ascorbic Acid [Vitamin C] 1,000 mg PO DAILY 10/25/12 Calcium Carbonate [Tums] 1,125 mg PO DAILY 08/08/17 Nitroglycerin 0.4 mg SL .Q 5MIN PRN,X3ONLY PRN 08/08/17 polyethylene glycol 3350 17 gram/dose oral powder 17 g PO DAILY #119 g 11/06/18 Wheat Dextrin [Benefiber] 1 ea PO PRN PRN 11/29/19 losartan 50 mg tablet 50 mg PO DAILY #90 tab 03/18/20 atorvastatin 40 mg tablet 40 mg PO HS #90 tab 06/16/20 Synthroid 75 mcg tablet 75 mcg PO DAILY #90 tab NS 06/17/20 Warfarin Sodium [Coumadin] 5 mg PO DAILY 08/09/20 HYDROcodone/ACETAMINOPHEN [[place] 5-325] 1 - 2 ea PO Q4H PRN #50 tab 08/10/20 Sennosides/Docusate Sodium [Senokot-S] 2 tab PO HS #60 tab 08/10/20 Amb Orders for Discharge: PT Evaluation and Treatment* Facility: [facility], Location: Rehabilitation Services Forms: Patient Portal Registration
[2020-08-10 16:43] VITALS: BP 152/69
== END 2020-08-10 15:27 | disposition home or self-care (01) ==
LOC: MS 06:20 → SUR 06:20
PROVIDERS: ADMIT Orthopaedic Surgery; ATTEND Orthopaedic Surgery
DX: M19.211 Secondary osteoarthritis, right shoulder

== ENCOUNTER 2020-08-23 02:41 | Inpatient (IN) ==
--- NOTE | 2020-08-23 03:02 | ERNOTE ---
Abdominal HPI - General Time Seen by Provider: 08/23/20 02:52 Source: patient, past records Exam Limitations: no limitations - Immun/Allergies/Home Medications Immunizatons: IMMUNIZATION HX Immunizations Up to Date Yes History of Influenza Vaccine Yes Hx Pneumococcal Vaccination Yes Allergies/Adverse Reactions: Allergies diclofenac Allergy (Mild, Verified 08/22/20 04:20) Other dizziness ceftriaxone [From Rocephin] Allergy (Unknown, Verified 08/22/20 04:20) shaky, dizziness ciprofloxacin [From Cipro] Allergy (Unknown, Verified 08/22/20 04:20) unknown ciprofloxacin HCl [From Cipro] Allergy (Unknown, Verified 08/22/20 04:20) unknown Iodinated Contrast Media Allergy (Unknown, Verified 08/22/20 04:20) unknown Sulfa (Sulfonamide Antibiotics) [Sulfa(Sulfonamide Antibiotics)] Allergy (Unknown, Verified 08/22/20 04:20) unknown sulfamethoxazole [From Bactrim] Allergy (Unknown, Verified 08/22/20 04:20) unknown trimethoprim [From Bactrim] Allergy (Unknown, Verified 08/22/20 04:20) unknown valacyclovir [From Valtrex] Allergy (Unknown, Verified 08/22/20 04:20) RASH guaifenesin [From Mucinex] Adverse Reaction (Intermediate, Verified 08/22/20 04:20) dizzy, stomach pain, diarrhea Home Medications: HOME MEDICATIONS Cholecalciferol [Vitamin D] 600 units PO DAILY 10/11/12 [Last Taken 08/08/17] Multivitamins [Multivitamin Betty] 1 cap PO DAILY 10/11/12 [Last Taken 08/08/17] Pringle-3/Dha/Epa/Fish Oil [Fish Oil Dr 500 mg Softgel] 4,000 mg PO DAILY 10/11/12 [Last Taken 08/08/17] Ubidecarenone [Co Q-10] 100 mg PO DAILY 10/11/12 [Last Taken 08/08/17] Ascorbic Acid [Vitamin C] 1,000 mg PO DAILY 10/25/12 [Last Taken 08/08/17] Calcium Carbonate [Tums] 1,125 mg PO DAILY 08/08/17 [Last Taken 08/08/17] Nitroglycerin 0.4 mg SL .Q 5MIN PRN,X3ONLY PRN 08/08/17 [Last Taken Unknown] polyethylene glycol 3350 17 gram/dose oral powder 17 g PO DAILY #119 g 11/06/18 [Last Taken Unknown] Wheat Dextrin [Benefiber] 1 ea PO PRN PRN 11/29/19 [Last Taken Unknown] losartan 50 mg tablet 50 mg PO DAILY #90 tab 03/18/20 [Last Taken Unknown] atorvastatin 40 mg tablet 40 mg PO HS #90 tab 06/16/20 [Last Taken Unknown] Synthroid 75 mcg tablet 75 mcg PO DAILY #90 tab NS 06/17/20 [Last Taken Unknown] Warfarin Sodium [Coumadin] 5 mg PO DAILY 08/09/20 [Last Taken 08/03/20 07:00] HYDROcodone/ACETAMINOPHEN [[place] 5-325] 1 - 2 ea PO Q4H PRN #50 tab 08/10/20 [Last Taken Unknown] Sennosides/Docusate Sodium [Senokot-S] 2 tab PO HS #60 tab 08/10/20 [Last Taken Unknown] docusate sodium 100 mg tablet 100 mg PO QID #30 tab 08/13/20 [Last Taken Unknown] cefdinir 300 mg capsule 300 mg PO BID 5 Days #10 cap 08/20/20 [Last Taken Unknown] - History of Present Illness Narrative: Patient has made multiple trips to the ER over the past 10 days for abdominal pain. She has been diagnosed with UTI and constipation. She states today she is having more bowel movements but still has a lot of cramping in her lower abdomen mostly left lower quadrant. Timing: other - improving Quality: moderate, cramping Modifying Factors - (Improves): Present: other - medication Associated Symptoms: Present: back pain Review of Systems - Review of Systems Constitutional: Present: recent illness EYE: Absent: vision changes ENT: Absent: nose congestion, nasal drainage Respiratory: Absent: shortness of breath, cough Cardiology: Absent: chest pain, palpitations Gastrointestinal/Abdominal: Present: See HPI, nausea, abdominal pain Genitourinary: Present: dysuria Musculoskeletal: Present: back pain Skin: Present: rash Neurological: Absent: headache, dizziness/light-headedness Endocrine: Absent: excessive sweating Medical History (Last Reviewed 08/23/20 @ 03:00 by Harry Saavedra DO) COVID-19 vaccine administered (Acute) Seasonal allergic rhinitis (Acute) Encounter for pessary maintenance (Acute) Patient without complaints Pessary cleaned and replaced No evidence of vaginal erosion Has received influenza vaccination in current influenza season (Acute) Onset Date: 12/2017 Osteopenia (Chronic) Contusion, knee and lower leg (Acute) Vaginal bleeding (Acute) Fall (Acute) Nasal fracture (Acute) reduced Facial laceration (Acute) healed Arm laceration (Acute) Hematoma (Chronic) barely visible CAD (coronary artery disease) (Chronic) s/p JAH in 2010 Anemia (Chronic) Contusion (Acute) Hyperlipidemia (Chronic) Hypothyroidism (Chronic) Pain (Acute) Thoracic outlet syndrome (Acute) Syncope (Resolved) Constipation (Acute) Urinary tract infection (Suspected) Nausea and vomiting in adult (Acute) Weakness generalized (Acute) Constipation by delayed colonic transit (Acute) Improved DVT (deep venous thrombosis) (Chronic) History of recurrent DVT Skin tear of hand without complication (Acute) Hemorrhoid (Acute) Bleeding from wound (Acute) Hyponatremia (Resolved) Feeling unwell (Acute) Hypertension (Chronic) Arthropathy of right shoulder Adnexal mass Onset Date: ~2012 Arthritis Onset Date: Unknown Coronary artery disease Onset Date: ~2010 status post Promus 3.0 x 23 mm drug-eluting stent to the LAD [place] [address] [place] in [place], [place] Essential hypertension Onset Date: ~2013 Hypercholesteremia Onset Date: Unknown Hyperlipidemia Onset Date: Unknown Mitral regurgitation Onset Date: Unknown Shoulder impingement Onset Date: ~2012 Splenic artery aneurysm Onset Date: Unknown Uterovaginal prolapse Onset Date: ~2016 Aneurysm Onset Date: Unknown cerebral Biceps tendon rupture Onset Date: Unknown DVT (deep venous thrombosis) Onset Date: ~2016 Lumbar spine strain Onset Date: ~2012 Rotator cuff rupture Onset Date: ~2012 Surgical History: Surgical History (Last Reviewed 08/23/20 @ 03:01 by Harry Saavedra DO) History of shoulder surgery Onset Date: ~08/09/20 Right H/O coronary angiogram Onset Date: ~2010 History of colonoscopy Onset Date: ~2011 History of coronary artery stent placement Onset Date: ~2010 History of dilation and curettage Onset Date: ~2009 History of removal of cyst Onset Date: ~2015 History of surgical removal of skin lesion Onset Date: ~2016 removal of benign tumor from back of neck - Procedure done in [place] while staying there for the winter. Family History: Family History (Last Reviewed 08/23/20 @ 03:01 by Harry Saavedra DO) Mother , age 76, heart disease- bypass Heart disease Father , age 91, heart problems, bypass, [place] Heart disease Myocardial infarction Brother Hx of CABG Social History: (Last Reviewed 08/23/20 @ 03:01 by Harry Saavedra DO) Social History: Marital status: household members: spouse current occupational status: retired Highest level of school completed/degree received: high school graduate Service: No Tobacco: Smoking Status: Never smoker Alcohol: alcohol intake: former Substance Use: substance use type: does not use Dietary Habits: caffeine: No Physical Exam - Physical Exam General Appearance: Present: wd/wn, alert, no apparent distress Head Exam: Present: normal inspection, no evidence of injury Neck: Present: normal inspection, nontender Respiratory: Present: no respiratory distress, normal breath sounds, lungs clear Cardiovascular/Chest: Present: regular rate, rhythm, no murmur Gastrointestinal/Abdominal: Present: normal bowel sounds, nondistended, tenderness - Left lower quadrant. Absent: distended, guarding, rebound Back Exam: Present: no vertebral tenderness Extremity Exam: Present: normal inspection, non-tender Neurological Exam: Present: alert, oriented, normal mood/affect, no motor/sensory deficits Skin Exam: Present: normal color, warm/dry Lymphatic Exam: Present: no adenopathy Progress - Results and Orders Patient's Lab Results:: I have reviewed the patient's lab results. Results and Orders: Laboratory Tests 08/23/20 08/23/20 08/23/20 02:58 03:12 03:12 WBC 13.2 H Hgb 9.2 L Hct 26.6 L Plt Count 388 Neutrophils % 84.2 H Sodium 125 L Potassium 3.8 Chloride 91 L Carbon Dioxide 30.0 BUN 15 Creatinine 0.76 Random Glucose 106 Calcium 9.0 Total Bilirubin 0.4 AST 35 ALT 34 Amylase 63 Lipase 131 Urine Color Pale yellow Urine Appearance Clear Urine pH 6.5 Ur Specific Cobb <=1.005 Urine Protein Negative Urine Glucose (UA) Negative Urine Ketones Negative Urine Blood Negative Urine Nitrate Negative Urine Bilirubin Negative Urine Urobilinogen Normal Ur Leukocyte Esterase Negative Amorphous Sediment Few - 1+ Urine Bacteria Trace Urine Culture Comments No culture indicated - Vital Signs Patient's Vital Signs:: I have reviewed the patient's vital signs. - X-Ray X-Ray #1 X-Ray: abdomen Interpretation: Interp. by me X-ray Comments: Supine and lateral decubitus abdominal x-rays due to patient's weakness and inability to stand for an upright. Mild to moderate air-fluid levels on decubitus. No evidence of obstruction. Moderate stool in right colon. - CT/Ultrasound CT/Ultrasound Narrative: CT abdomen pelvis without IV contrast with oral contrast. 1. Right colonic constipation. 2. Suspect low-grade colitis involving the distal descending and proximal sigmoid colon. 3. Dilated extrahepatic ducts and proximal pancreatic duct. No definable pancreatic mass irregular mass or ductal stones. Enzyme analysis advised. Biliary structures within the differential - Progress/Reassessment Progress Note-Subjective: 08/23/20 07:[address] messages for [address] Walters concerning admission, awaiting his response. 08/23/20 07:55 Received a call back from Dr. Walters, he agrees with admission for diverticulitis and hyponatremia Departure Clinical Impression: Diverticulitis, Hyponatremia - Departure Disposition: Still a patient Condition: Good
[2020-08-23 03:20] LABS: Urine Bilirubin Negative (NEGATIVE); Urine Blood Negative /ul (NEGATIVE); Urine Ketone Negative (NEGATIVE); Urine Nitrite Negative (NEGATIVE); Urine Protein Negative (NEGATIVE); Urine Specific Gravity <=1.005 SP.GR. (1.005-1.010); Urine Urobilinogen Normal (NORMAL); Urine pH 6.5 pH (5.0-7.0)
[2020-08-23 03:20] LABS: Hematocrit 26.6 % (37.0-47.0); Hemoglobin 9.2 gm/dL (12.5-16.0); Mean Cell Volume 89.9 fl (78-100); Mean Corpuscular Hemoglobin 31.1 pg (27-31); Mean Corpuscular Hgb Conc 34.6 g/dl (32-36); Mean Platelet Volume 9.8 fl (8-12.5); Neutrophil # 11.1 K/mm3 (1.3-6.0); Neutrophil % 84.2 % (42-75.0); Platelet Count 388 K/mm3 (150-450); Red Blood Count 2.96 M/mm3 (4.2-5.4); Red Cell Distribution Width 12.5 % (11.5-14.0); White Blood Count 13.2 K/mm3 (4.0-10.5)
[2020-08-23 03:27] LABS: Urine Amorphous Sediment Few - 1+ (NONE-FEW); Urine Appearance Clear (CLEAR); Urine Bacteria TRACE; Urine Color Pale Yellow; Urine RBC TRACE /hpf (0-5); Urine WBC TRACE /hpf (0-5)
[2020-08-23] MEDS ORDERED: DIATRIZOATE MEGLUMINE, SODIUM 30 ML BTL PO ONE (03:33)
[2020-08-23 03:41] LABS: Albumin * 2.6 gm/dl (3.4-5.0); Anion Gap 7.8 mmol/L (6.8-13.8); BUN/Creatinine Ratio 19.7 (9.0-21.6); Bilirubin, Total 0.4 mg/dL (0.0-1.1); Ca. Corrected For Albumin 9.8 mg/dL (8.4-10.2); Potassium 3.8 mmol/L (3.4-4.6)
[2020-08-23] MEDS ORDERED: PIPERACILLIN SODIUM/TAZOBACTAM 3.375 GM in DEXTROSE 5 % IN WATER 100 ML IV ONE ×2 (07:45)
--- NOTE | 2020-08-23 09:17 | HP ---
Chief Complaint - Chief Complaint Date of Service: 08/23/20 Time of Service: 09:16 Chief Complaint: abdominal pain History of Present Illness: Mary Samano is an 85-year-old white female with past medical history significant for coronary artery disease, hypertension, hypothyroidism, hyperlipidemia, recent surgery on her right shoulder who was admitted on 08/23/2020 because of abdominal pain. The patient has been in and out of the emergency room for constipation and abdominal pain. She had shoulder surgery on 08/09/2020 and was on hydrocodone acetaminophen for her pain. In one of her visits the patient was given magnesium citrate and she started to have small bowel movements. She was seen on 08/18/2020 at my office for suprapubic discomfort and low back pain. We started her on doxycycline for suspected UTI as she was allergic to Cipro, Bactrim. Her culture grew E. coli and will change her antibiotic to Omnicef per sensitivity. On the she was seen in the emergency room and was told to increase her MiraLAX twice daily and continue with her other stool softener. She was also prescribed earlier with vaginal suppository for her yeast infection. She was then seen again today in the ER and an abdominal x-ray showed-IMPRESSION: POSSIBLE ILEUS OR LOW-GRADE PARTIAL BOWEL OBSTRUCTION WITH NO FREE AIR. Her white blood cell count was elevated at 13.2, hemoglobin of 9.2, MCV of 89.9, neutrophils of 84.2%, sodium of 125, creatinine of 0.76, liver function test within normal limits except for a total protein of 6 and an albumin of 2.6, amylase lipase within normal limits. Her urinalysis showed trace WBC. Her stool for occult blood was negative her SARS-CoV-2 was not detected.. Her CT scan of the abdomen and pelvis without contrast showed 1. AIR-CONTRAST LEVELS WITHIN NONDILATED SMALL BOWEL AND AIR-FLUID LEVELS IN NONDILATED TRANSVERSE AND PROXIMAL DESCENDING COLON WITH MODERATE STOOL IN THE RIGHT HEMICOLON. COUPLE OF AREAS OF CIRCUMFERENTIAL NARROWING IN THE COLON INCLUDING IN THE DISTAL DESCENDING/PROXIMAL SIGMOID WITH SOME SUGGESTED MILD SURROUNDING FAT INDURATION. THIS COULD REPRESENT AN INFECTIOUS OR INFLAMMATORY COLITIS ALTHOUGH A NEOPLASTIC PROCESS IS NOT EXCLUDED ON THE BASIS OF THE STUDY AND COLONOSCOPY IS RECOMMENDED. 2. MODERATE BILE DUCT DILATATION WITH NO APPRECIABLE BILIARY TRACT STONE OR OBSTRUCTING MASS, ALTHOUGH SENSITIVITY IS LIMITED ON THIS NONCONTRAST STUDY. LAB CORRELATION AND POSSIBLE ERCP OR MRCP MAY BE INDICATED. 3. LEFT ADRENAL CALCIFICATION, POSSIBLY FROM PRIOR ADRENAL TRAUMA OR INFECTION. 4. SMALL HIATAL HERNIA AND MARKED SOFT TISSUE PROMINENCE AT THE PROXIMAL ASPECT OF THE STOMACH, BUT UNCERTAIN SIGNIFICANCE, NOTED ABOVE. She was then admitted for further treatment and evaluation. Medical History (Last Reviewed 08/23/20 @ 03:00 by Harry Saavedra DO) COVID-19 vaccine administered (Acute) Seasonal allergic rhinitis (Acute) Encounter for pessary maintenance (Acute) Patient without complaints Pessary cleaned and replaced No evidence of vaginal erosion Has received influenza vaccination in current influenza season (Acute) Onset Date: 12/2017 Osteopenia (Chronic) Contusion, knee and lower leg (Acute) Vaginal bleeding (Acute) Fall (Acute) Nasal fracture (Acute) reduced Facial laceration (Acute) healed Arm laceration (Acute) Hematoma (Chronic) barely visible CAD (coronary artery disease) (Chronic) s/p JAH in 2010 Anemia (Acute) Contusion (Acute) Hyperlipidemia (Chronic) Hypothyroidism (Chronic) Pain (Acute) Thoracic outlet syndrome (Acute) Syncope (Resolved) Constipation (Acute) Urinary tract infection (Suspected) Nausea and vomiting in adult (Acute) Weakness generalized (Acute) Constipation by delayed colonic transit (Acute) Improved DVT (deep venous thrombosis) (Chronic) History of recurrent DVT Skin tear of hand without complication (Acute) Hemorrhoid (Acute) Bleeding from wound (Acute) Hyponatremia (Resolved) Feeling unwell (Acute) Hypertension (Chronic) Arthropathy of right shoulder Adnexal mass Onset Date: ~2012 Arthritis Onset Date: Unknown Coronary artery disease Onset Date: ~2010 status post Promus 3.0 x 23 mm drug-eluting stent [place] the L[place] [address] Sing[place] in [place], [place] Essential hypertension Onset Date: ~2013 Hypercholesteremia Onset Date: Unknown Hyperlipidemia Onset Date: Unknown Mitral regurgitation Onset Date: Unknown Shoulder impingement Onset Date: ~2012 Splenic artery aneurysm Onset Date: Unknown Uterovaginal prolapse Onset Date: ~2016 Aneurysm Onset Date: Unknown cerebral Biceps tendon rupture Onset Date: Unknown DVT (deep venous thrombosis) Onset Date: ~2016 Lumbar spine strain Onset Date: ~2012 Rotator cuff rupture Onset Date: ~2012 Surgical History: Surgical History (Last Reviewed 08/23/20 @ 03:01 by Harry Saavedra DO) History of shoulder surgery Onset Date: ~08/09/20 Right H/O coronary angiogram Onset Date: ~2010 History of colonoscopy Onset Date: ~2011 History of coronary artery stent placement Onset Date: ~2010 History of dilation and curettage Onset Date: ~2009 History of removal of cyst Onset Date: ~2015 History of surgical removal of skin lesion Onset Date: ~2016 removal of benign tumor from back of neck - Procedure done in [place] while staying there for the winter. Family History: Family History (Last Reviewed 08/23/20 @ 03:01 by Harry Saavedra DO) Mother , age 76, heart disease- bypass Heart disease Father , age 91, heart problems, bypass, [place] Heart disease Myocardial infarction Brother Hx of CABG Social History: (Last Reviewed 08/23/20 @ 03:01 by Harry Saavedra DO) Social History: Marital status: household members: spouse current occupational status: retired Highest level of school completed/degree received: high school graduate Service: No Tobacco: Smoking Status: Never smoker Alcohol: alcohol intake: former Substance Use: substance use type: does not use Dietary Habits: caffeine: No Review Of Systems (GEN) - Review of Systems Generalized/Overall Review: Absent: Chills, Fever EENTM: Absent: Blurred Vision Respiratory: Absent: Cough, Shortness of Breath, Orthopnea Cardiac: Absent: Chest Pain, Edema, Palpitations Abdominal: Present: Abdominal Pain, Constipation, Diarrhea. Absent: Nausea, Vomiting, Hematemesis Genitourinary: Present: Frequency. Absent: Itching, Urgency Musculoskeletal: Present: Joint Pain Neurological: Absent: Headache Skin: Absent: Lesions, Rash Misc: All systems neg except as marked Immunizations: IMMUNIZATION HX Immunizations Up to Date Yes History of Influenza Vaccine Yes Hx Pneumococcal Vaccination Yes Allergies/Adverse Reactions: Allergies Allergy/AdvReac Type Severity Reaction Status Date / Time diclofenac Allergy Mild Other Verified 08/22/20 04:20 ceftriaxone [From Rocephin] Allergy Unknown shaky, Verified 08/22/20 04:20 dizziness ciprofloxacin [From Cipro] Allergy Unknown unknown Verified 08/22/20 04:20 ciprofloxacin HCl Allergy Unknown unknown Verified 08/22/20 04:20 [From Cipro] Iodinated Contrast Media Allergy Unknown unknown Verified 08/22/20 04:20 Sulfa (Sulfonamide Allergy Unknown unknown Verified 08/22/20 04:20 Antibiotics) [Sulfa(Sulfonamide Antibiotics)] sulfamethoxazole Allergy Unknown unknown Verified 08/22/20 04:20 [From Bactrim] trimethoprim [From Bactrim] Allergy Unknown unknown Verified 08/22/20 04:20 valacyclovir [From Valtrex] Allergy Unknown RASH Verified 08/22/20 04:20 guaifenesin [From Mucinex] AdvReac Intermediate dizzy, Verified 08/22/20 04:20 stomach pain, diarrhea Home Medications: HOME MEDICATIONS Cholecalciferol [Vitamin D] 600 units PO DAILY 10/11/12 [Last Taken 08/08/17] Multivitamins [Multivitamin Betty] 1 cap PO DAILY 10/11/12 [Last Taken 08/08/17] [place]-3/Dha/Epa/Fish Oil [Fish Oil Dr 500 mg Softgel] 4,000 mg PO DAILY 10/11/12 [Last Taken 08/08/17] Ubidecarenone [Co Q-10] 100 mg PO DAILY 10/11/12 [Last Taken 08/08/17] Ascorbic Acid [Vitamin C] 1,000 mg PO DAILY 10/25/12 [Last Taken 08/08/17] Calcium Carbonate [Tums] 1,125 mg PO DAILY 08/08/17 [Last Taken 08/08/17] Nitroglycerin 0.4 mg SL .Q 5MIN PRN,X3ONLY PRN 08/08/17 [Last Taken Unknown] polyethylene glycol 3350 17 gram/dose oral powder 17 g PO DAILY #119 g 11/06/18 [Last Taken Unknown] Wheat Dextrin [Benefiber] 1 ea PO PRN PRN 11/29/19 [Last Taken Unknown] losartan 50 mg tablet 50 mg PO DAILY #90 tab 03/18/20 [Last Taken Unknown] atorvastatin 40 mg tablet 40 mg PO HS #90 tab 06/16/20 [Last Taken Unknown] Synthroid 75 mcg tablet 75 mcg PO DAILY #90 tab NS 06/17/20 [Last Taken Unknown] Warfarin Sodium [Coumadin] 5 mg PO DAILY 08/09/20 [Last Taken 08/03/20 07:00] HYDROcodone/ACETAMINOPHEN [Okay 5-325] 1 - 2 ea PO Q4H PRN #50 tab 08/10/20 [Last Taken Unknown] Sennosides/Docusate Sodium [Senokot-S] 2 tab PO HS #60 tab 08/10/20 [Last Taken Unknown] docusate sodium 100 mg tablet 100 mg PO QID #30 tab 08/13/20 [Last Taken Unknown] cefdinir 300 mg capsule 300 mg PO BID 5 Days #10 cap 08/20/20 [Last Taken Unknown] Exam - Exam Vital Signs: Vital Signs - Last Taken Temp 36.3 C 08/23/20 08:59 Pulse 78 08/23/20 08:59 Resp 16 08/23/20 08:59 BP 162/77 H 08/23/20 08:59 Pulse Ox 96 08/23/20 05:37 Constitutional: Present: Alert, Oriented x3, Cooperative, Elderly ENT Exam: Present: hearing grossly normal Eye Exam: bilateral eye: normal inspection, PERRL, EOMI Neck: Present: supple. Absent: lymphadenopathy (R), lymphadenopathy (L) Respiratory: Present: normal breath sounds, No rales, No wheezing Cardiovascular/Chest: Present: regular rate, rhythm, no gallop, no JVD Abdomen: Present: Normal bowel sounds, soft, tender, negative Downs sign, di stended - Slightly Extremity: Present: no pedal edema, no calf tenderness Diagnostic Studies: Abnormal Lab Results 08/23/20 08/23/20 08/23/20 Range/Units 02:58 03:12 03:12 WBC 13.2 H (4.0-10.5) K/mm3 RBC 2.96 L (4.2-5.4) M/mm3 Hgb 9.2 L (12.5-16.0) gm/dL Hct 26.6 L (37.0-47.0) % MCH 31.1 H (27-31) pg Immature Gran % (Auto) 0.50 H (0.001-0.429) % Immature Gran # (Auto) 0.06 H (0.000-0.0310) K/mm3 Neutrophils % 84.2 H (42-75.0) % Lymphocytes % 7.6 L (20-51) % Neutrophils # 11.1 H (1.3-6.0) K/mm3 Lymphocytes # 1.01 L (1.5-3.5) k/mm3 Sodium 125 L (132-142) mmol/L Plasma Sodium 125 L (130-142) mmol/L Chloride 91 L (97-106) mmol/L Total Protein 6.0 L (6.2-8.2) gm/dL Albumin 2.6 L (3.4-5.0) gm/dl Urine WBC Trace H (0-5) /hpf Laboratory Results WBC 13.2 K/mm3 (4.0-10.5) H 08/23/20 03:12 RBC 2.96 M/mm3 (4.2-5.4) L 08/23/20 03:12 Hgb 9.2 gm/dL (12.5-16.0) L 08/23/20 03:12 Hct 26.6 % (37.0-47.0) L 08/23/20 03:12 MCV 89.9 fl (78-100) 08/23/20 03:12 MCH 31.1 pg (27-31) H 08/23/20 03:12 MCHC 34.6 g/dl (32-36) 08/23/20 03:12 RDW 12.5 % (11.5-14.0) 08/23/20 03:12 Plt Count 388 K/mm3 (150-450) 08/23/20 03:12 MPV 9.8 fl (8-12.5) 08/23/20 03:12 Immature Gran % (Auto) 0.50 % (0.001-0.429) H 08/23/20 03:12 Immature Gran # (Auto) 0.06 K/mm3 (0.000-0.0310) H 08/23/20 03:12 Neutrophils % 84.2 % (42-75.0) H 08/23/20 03:12 Lymphocytes % 7.6 % (20-51) L 08/23/20 03:12 Monocytes % 7.3 % (0.0-9) 08/23/20 03:12 Eosinophils % 0.2 % (0.0-3.0) 08/23/20 03:12 Basophils % 0.2 % (0.0-1.0) 08/23/20 03:12 Nucleated RBC % 0.0 k/mm3 (0-1) 08/23/20 03:12 Neutrophils # 11.1 K/mm3 (1.3-6.0) H 08/23/20 03:12 Lymphocytes # 1.01 k/mm3 (1.5-3.5) L 08/23/20 03:12 Monocytes # 1.0 k/mm3 (0.0-1.0) 08/23/20 03:12 Eosinophils # 0.0 k/mm3 (0.0-0.7) 08/23/20 03:12 Absolute Basophils 0.0 k/mm3 (0.0-0.1) 08/23/20 03:12 Sodium 125 mmol/L (132-142) L 08/23/20 03:12 Plasma Sodium 125 mmol/L (130-142) L 08/23/20 03:12 Potassium 3.8 mmol/L (3.4-4.6) 08/23/20 03:12 Chloride 91 mmol/L (97-106) L 08/23/20 03:12 Carbon Dioxide 30.0 mmol/L (24-32.6) 08/23/20 03:12 Anion Gap 7.8 mmol/L (6.8-13.8) 08/23/20 03:12 BUN 15 mg/dL (3-23) 08/23/20 03:12 Creatinine 0.76 mg/dL (0.4-1.4) 08/23/20 03:12 Est GFR (Non-Af Amer) 77 mL/min (60-130) D 08/23/20 03:12 BUN/Creatinine Ratio 19.7 (9.0-21.6) 08/23/20 03:12 Random Glucose 106 mg/dL (70-110) 08/23/20 03:12 Calcium 9.0 mg/dL (7.9-10.9) 08/23/20 03:12 Calcium Adj for Albumin 9.8 mg/dL (8.4-10.2) 08/23/20 03:12 Total Bilirubin 0.4 mg/dL (0.0-1.1) 08/23/20 03:12 AST 35 U/L (0-48) 08/23/20 03:12 ALT 34 U/L (19-67) 08/23/20 03:12 Alkaline Phosphatase 85 U/L (50-170) 08/23/20 03:12 Total Protein 6.0 gm/dL (6.2-8.2) L 08/23/20 03:12 Albumin 2.6 gm/dl (3.4-5.0) L 08/23/20 03:12 Amylase 63 U/L (25-115) 08/23/20 03:12 Lipase 131 U/L (73-393) 08/23/20 03:12 Urine Color Pale yellow 08/23/20 02:58 Urine Appearance Clear (CLEAR) 08/23/20 02:58 Urine pH 6.5 pH (5.0-7.0) 08/23/20 02:58 Ur Specific [place] <=1.005 SP.GR. (1.005-1.010) 08/23/20 02:58 Urine Protein Negative mg/dL (NEGATIVE) 08/23/20 02:58 Urine Glucose (UA) Negative mg/dL (NEGATIVE) 08/23/20 02:58 Urine Ketones Negative mg/dL (NEGATIVE) 08/23/20 02:58 Urine Blood Negative /ul (NEGATIVE) 08/23/20 02:58 Urine Nitrate Negative (NEGATIVE) 08/23/20 02:58 Urine Bilirubin Negative mg/dl (NEGATIVE) 08/23/20 02:58 Urine Urobilinogen Normal EU/dl (NORMAL) 08/23/20 02:58 Ur Leukocyte Esterase Negative /ul (NEGATIVE) 08/23/20 02:58 Urine RBC Trace /hpf (0-5) 08/23/20 02:58 Urine WBC Trace /hpf (0-5) H 08/23/20 02:58 Ur Epithelial Cells 0-5 /hpf (0-5) 08/23/20 02:58 Amorphous Sediment Few - 1+ (NONE-FEW) 08/23/20 02:58 Urine Bacteria Trace (NONE) 08/23/20 02:58 Urine Culture Comments No culture indicated 08/23/20 02:58 SARS-CoV-2 (PCR) Not detected (NotDetected) 08/23/20 07:39 Assessment/Plan - Narrative Narrative: Mary was admitted for abdominal pain with admitting impression of colitis, infectious versus inflammatory. Dilated common bile duct with normal LFT/amylase/lipase. She has been in and out of the emergency room for constipation and abdominal pain since after her shoulder surgery on 08/09/2020. She was on narcotic pain meds at that time. She was given Mag Citrate and she had been having small bowel movements since then. She followed up with me in the the clinic for her constipation and she was complaining of suprapubic pain and low back pain. She also had increased frequency of urination every hour the night before her visit as per her son. She was told to stay on Tylenol and restarte her Miralax and Senna-S. Her urinalysis and urine culture grew E. coli and she was started on antibiotics. She was back to the emergency room over the weekend and and then this morning her abdominal x-ray showed possible ileus with low-grade partial bowel obstruction with no free air. Her CT scan of the abdomen showed air contrast levels within nondilated small bowel and air-fluid levels in nondilated transverse and proximal descending colon with moderate stool in the right hemicolon. Couple of circumferential narrowing in the colon including the distal descending and proximal sigmoid with some suggested mild surrounding fat induration which could represent an infectious or inflammatory colitis although neoplastic process is not excluded. She also had moderate bile duct dilatation with no appreciable biliary tract stone or obstructing mass. Recommend MRCP or ERCP. She also had a small hiatal hernia and marked soft tissue prominence of the proximal aspect of the stomach of uncertain significance. She was and placed n.p.o, IV antibiotics, IV fluids. Ultrasound of the gallbladder and bile ducts was done which showed dilated common bile duct with no stones probably papillary stenosis. We will likely do an MRCP as an outpatient. We also sent stool for occult blood, C. difficile, culture and sensitivity, ESr, CRP, IBD panel. She was recently started on oral antibiotics for UTI and so C. difficile could be a possibility. We will also get a surgical consult. - Assessment/Plan (1) Abdominal pain Problem: Acute Qualifiers: Abdominal location: lower abdomen, unspecified Qualified Code(s): R10.30 - Lower abdominal pain, unspecified (2) Colitis Assessment: infectious vs inflammatory Problem: Acute (3) Hyponatremia Assessment: likely hypotonic, euvolemic Problem: Acute (4) Anemia Problem: Chronic Qualifiers: Anemia type: unspecified type Qualified Code(s): D64.9 - Anemia, unspecified (5) UTI (urinary tract infection) Problem: Resolved (6) CAD (coronary artery disease) Problem: Chronic Qualifiers: Coronary Disease-Associated Artery/Lesion type: [place] artery [place] vs. transplanted heart: [place] heart Associated angina: without angina Qualified Code(s): I25.10 - Atherosclerotic heart disease of [place] coronary artery without angina pectoris (7) Hyperlipidemia Problem: Chronic Qualifiers: Hyperlipidemia type: pure hypercholesterolemia Qualified Code(s): E78.00 - Pure hypercholesterolemia, unspecified (8) Hypothyroidism Problem: Chronic Qualifiers: Hypothyroidism type: acquired Qualified Code(s): E03.9 - Hypothyroidism, unspecified (9) DVT (deep venous thrombosis) Assessment: History of Problem: Chronic (10) Hypertension Problem: Chronic Qualifiers: Hypertension type: essential hypertension Qualified Code(s): I10 - Essential (primary) hypertension
[2020-08-23 11:05] LABS: Prothrombin Time (Patient) 34.4 Seconds (9.1-10.7)
[2020-08-23 11:08] LABS: INR 3.51 INR (0.92-1.08)
[2020-08-23] MEDS ORDERED: NITROGLYCERIN 0.4 MG/TAB BTL SL PRN (12:05)
[2020-08-23] MEDS ORDERED: ONDANSETRON HCL 4 MG TABLET PO PRN (12:08)
[2020-08-23] MEDS ORDERED: SENNOSIDES/DOCUSATE SODIUM 1 TAB TABLET PO PRN (12:36)
[2020-08-23] MEDS: POTASSIUM CHLORIDE 20 MEQ in NORMAL SALINE 1,000 ML IV SCH ×2 (12:42→23:49)
[2020-08-23] MEDS: PIPERACILLIN SODIUM/TAZOBACTAM 3.375 GM in DEXTROSE 5 % IN WATER 100 ML IV SCH ×4 (12:54→20:12)
--- NOTE | 2020-08-23 14:25 | CONS ---
[facility] - General Date of Service: 08/23/20 Narrative: She was admitted through the emergency room early this morning with abdominal pain. There were changes on the CT scan suggesting a problem with the colon. Source: patient, RN/MD, RN notes reviewed, old records Exam Limitations: no limitations - History of Present Illness Initial Comments: She had a right reverse total shoulder on 08/09/2020. Since then she has had increasing problems with constipation. She has actually been to the emergency room on 08/[address] Walters on 08/18. Timing/Duration: other Severity: moderate - Currently she states she is much improved Modifying Factors - (Worsens): Reports: movement, other Modifying Factors - (Improves): Reports: rest, other - Moving her bowels Associated Symptoms: other - Crampy abdominal pain "like I am plugged up" Allergies/Adverse Reactions: Allergies diclofenac Allergy (Mild, Verified 08/22/20 04:20) Other dizziness ceftriaxone [From Rocephin] Allergy (Unknown, Verified 08/22/20 04:20) shaky, dizziness ciprofloxacin [From Cipro] Allergy (Unknown, Verified 08/22/20 04:20) unknown ciprofloxacin HCl [From Cipro] Allergy (Unknown, Verified 08/22/20 04:20) unknown Iodinated Contrast Media Allergy (Unknown, Verified 08/22/20 04:20) unknown Sulfa (Sulfonamide Antibiotics) [Sulfa(Sulfonamide Antibiotics)] Allergy (Unknown, Verified 08/22/20 04:20) unknown sulfamethoxazole [From Bactrim] Allergy (Unknown, Verified 08/22/20 04:20) unknown trimethoprim [From Bactrim] Allergy (Unknown, Verified 08/22/20 04:20) unknown valacyclovir [From Valtrex] Allergy (Unknown, Verified 08/22/20 04:20) RASH guaifenesin [From Mucinex] Adverse Reaction (Intermediate, Verified 08/22/20 04:20) dizzy, stomach pain, diarrhea Home Medications: Home Medications Medication Instructions Recorded Last Taken Cholecalciferol [Vitamin D] 600 units PO DAILY 10/11/12 08/08/17 Multivitamins [Multivitamin Betty] 1 cap PO DAILY 10/11/12 08/08/17 Chancellor-3/Dha/Epa/Fish Oil [Fish Oil 4,000 mg PO DAILY 10/11/12 08/08/17 Dr 500 mg Softgel] Ubidecarenone [Co Q-10] 100 mg PO DAILY 10/11/12 08/08/17 Ascorbic Acid [Vitamin C] 1,000 mg PO DAILY 10/25/12 08/08/17 Calcium Carbonate [Tums] 1,125 mg PO DAILY 08/08/17 08/08/17 Nitroglycerin 0.4 mg SL .Q 5MIN PRN,X3ONLY PRN 08/08/17 Unknown polyethylene glycol 3350 17 17 g PO DAILY #119 g 11/06/18 Unknown gram/dose oral powder Wheat Dextrin [Benefiber] 1 ea PO PRN PRN 11/29/19 Unknown losartan 50 mg tablet 50 mg PO DAILY #90 tab 03/18/20 Unknown atorvastatin 40 mg tablet 40 mg PO HS #90 tab 06/16/20 Unknown Synthroid 75 mcg tablet 75 mcg PO DAILY #90 tab NS 06/17/20 Unknown Warfarin Sodium [Coumadin] 5 mg PO DAILY 08/09/20 08/03/20 07:00 HYDROcodone/ACETAMINOPHEN [[place] 1 - 2 ea PO Q4H PRN #50 tab 08/10/20 Unknown 5-325] Sennosides/Docusate Sodium 2 tab PO HS #60 tab 08/10/20 Unknown [Senokot-S] docusate sodium 100 mg tablet 100 mg PO QID #30 tab 08/13/20 Unknown cefdinir 300 mg capsule 300 mg PO BID 5 Days #10 cap 08/20/20 Unknown Procedures Colonoscopy (08/18/11) Contrast arthrogram (01/28/01) Other dilation and curettage (03/21/10) Repair Left Hand Skin, External Approach (08/07/16) Medications - Medications Current Medications: Current Medications Potassium Chloride 20 meq/ (Sodium Chloride) 1,010 mls @ 125 mls/hr IV .Q8H5M FLOR Stop: 09/22/20 12:01 Last Admin: 08/23/20 12:42 Dose: 125 mls/hr Documented by: Piperacillin Sod/Tazobactam (Sod 3.375 gm/ Dextrose/Water) 100 mls @ 25 mls/hr IV Q8H FLOR; Protocol Stop: 09/22/20 12:01 Last Admin: 08/23/20 12:54 Dose: 25 mls/hr Documented by: Review of Systems - Review of Systems Generalized/Overall Review: Present: Weakness. Absent: Chills, Fever EENTM: Present: No Symptoms Reported Respiratory: Present: No Symptoms Reported. Absent: Cough, Shortness of Breath Cardiac: Absent: Chest Pain Abdominal: Present: Other - She was having crampy lower abdominal discomfort. She felt "plugged up". She did take some Senokot and also the contrast from the CT scan has caused multiple loose bowel movements and now her abdomen is just "sore" Musculoskeletal: Present: Other - She states she is doing well from her right shoulder surgery. Minimal discomfort. She is off hydrocodone Neurological: Present: No Symptoms Reported Skin: Present: No Symptoms Reported Endocrine: Present: No Symptoms Reported Physical Examination - Exam Vital Signs: Vital Signs - Last Taken Temp 36.6 C 08/23/20 11:25 Pulse 79 08/23/20 11:25 Resp 18 08/23/20 11:25 BP 155/74 H 08/23/20 11:25 Pulse Ox 94 08/23/20 11:25 O2 Oxygen Delivery Method Room Air Comprehensive Narative: 08/23/20 14:20 She is alert oriented cooperative and a good historian. She appears in no distress laying on her left side. Right shoulder immobilizer Constitutional: Present: Alert, Oriented x3, Cooperative, Well nourished, No distress ENT Exam: Present: normal ENT inspection Neck: Present: normal inspection Respiratory: Present: no respiratory distress Cardiovascular/Chest: Present: regular rate, rhythm Abdomen: Present: Normal bowel sounds, soft, other - She reports tenderness deep in the right lower quadrant but does not guard. She states it hurts worse when you let go and hurts a little when she coughs. Again no guarding /Rectal: Present: Exam deferred Extremity: Present: other - Right shoulder immobilizer Skin Exam: Present: normal color Neurologic: Present: ward secretary II-XII nml as tested, no motor/sensory deficits Appearance: Present: appropriate appearance, appropriate insight, no memory impairment Eye contact: Present: cooperative, good eye contact, normal speech Thoughts: Present: normal thought pattern - Results and Findings: Lab/Microbiology results last 24 hrs: Abnormal/Pending Laboratory Last 24 HRS 08/23/20 08/23/20 08/23/20 13:06 10:00 10:00 WBC RBC Hgb Hct MCH Immature Gran % (Auto) Immature Gran # (Auto) Neutrophils % Lymphocytes % Neutrophils # Lymphocytes # ESR PT 34.4 H INR (Anticoag Therapy) 3.51 H Sodium Plasma Sodium Chloride C-Reactive Prot, Quant Total Protein Albumin TSH 5.591 H Urine WBC Stool Occult Blood Positive H 08/23/20 08/23/20 08/23/20 10:00 10:00 03:12 WBC RBC Hgb Hct MCH Immature Gran % (Auto) Immature Gran # (Auto) Neutrophils % Lymphocytes % Neutrophils # Lymphocytes # ESR 73 H PT INR (Anticoag Therapy) Sodium 125 L Plasma Sodium 125 L Chloride 91 L C-Reactive Prot, Quant 7.3 H Total Protein 6.0 L Albumin 2.6 L TSH Urine WBC Stool Occult Blood 08/23/20 08/23/20 03:12 02:58 WBC 13.2 H RBC 2.96 L Hgb 9.2 L Hct 26.6 L MCH 31.1 H Immature Gran % (Auto) 0.50 H Immature Gran # (Auto) 0.06 H Neutrophils % 84.2 H Lymphocytes % 7.6 L Neutrophils # 11.1 H Lymphocytes # 1.01 L ESR PT INR (Anticoag Therapy) Sodium Plasma Sodium Chloride C-Reactive Prot, Quant Total Protein Albumin TSH Urine WBC Trace H Stool Occult Blood - Assessments/Findings (1) Abdominal pain Diagnosis(s): She states her abdominal pain is markedly improved after moving her bowels multiple times. The CT scan mentions air-fluid levels in the colon and some questionable pericolonic inflammation. She does have a very redundant colon. She had a normal exam on colonoscopy in 2011. She does have a very long history of severe constipation, which she has in the past required manual disimpaction on several occasions. There are also findings of common bile duct dilation on CT scan and ultrasound, although there are no gallstones. She remembers me from a visit in 2017 when we discussed severe constipation and hemorrhoids. At that time she was started on Benefiber and MiraLAX. She states this is greatly helped her bowel habit. She currently takes Benefiber twice a day and MiraLAX once, now though she got out of sync with her recent surgery. Currently her exam is relatively benign although she does report some discomfort with removal of the examining hand, but does not guard. Her white blood cell count was initially elevated. No fever. Unsure of the significance of the dilation of the common duct with normal liver function studies and no stones on ultrasound. She has been started on Zosyn (she has multiple antibiotic allergies). It would be reasonable to continue this with serial abdominal exams. She can be started on clear liquids. I discussed the case with Dr. Walters and will continue to follow the patient Problem: Acute Qualifiers: Abdominal location: lower abdomen, unspecified Qualified Code(s): R10.30 - Lower abdominal pain, unspecified
[2020-08-23] MEDS: SACCHAROMYCES BOULARDII 250 MG CAPSULE PO SCH (20:13)
[2020-08-23] MEDS: ACETAMINOPHEN 325 MG TABLET PO PRN (20:13)
[2020-08-23 20:40] LABS: Anion Gap 12.3 mmol/L (6.8-13.8); BUN/Creatinine Ratio 12.9 (9.0-21.6); Calcium * 8.6 mg/dL (7.9-10.9); Carbon Dioxide 26.3 mmol/L (24-32.6); Estimated Creat Clear 34.9; Potassium 3.6 mmol/L (3.4-4.6)
[2020-08-24] MEDS: POTASSIUM CHLORIDE 20 MEQ in 0.5 NORMAL SALINE 1,000 ML IV SCH ×3 (00:44→14:42)
[2020-08-24] MEDS: ACETAMINOPHEN 325 MG TABLET PO PRN ×2 (03:30→19:24)
[2020-08-24] MEDS: PIPERACILLIN SODIUM/TAZOBACTAM 3.375 GM in DEXTROSE 5 % IN WATER 100 ML IV SCH ×6 (03:32→19:29)
[2020-08-24] MEDS ORDERED: LEVOTHYROXINE SODIUM 75 MCG TABLET PO SCH (07:00)
[2020-08-24 07:27] LABS: Hematocrit 30.8 % (37.0-47.0); Mean Cell Volume 93.1 fl (78-100); Mean Corpuscular Hemoglobin 30.2 pg (27-31); Mean Corpuscular Hgb Conc 32.5 g/dl (32-36); Mean Platelet Volume 8.9 fl (8-12.5); Neutrophil # 9.5 K/mm3 (1.3-6.0); Neutrophil % 81.6 % (42-75.0); Platelet Count 441 K/mm3 (150-450); Red Blood Count 3.31 M/mm3 (4.2-5.4); Red Cell Distribution Width 12.6 % (11.5-14.0); White Blood Count 11.6 K/mm3 (4.0-10.5)
[2020-08-24 07:33] LABS: Prothrombin Time (Patient) 45.5 Seconds (9.1-10.7)
[2020-08-24 08:06] LABS: Iron 21 mcg/dL (35-120); Transferrin Sat. (% Sat.) 9 % (15-55)
[2020-08-24 08:30] LABS: INR 4.71 INR (0.92-1.08)
[2020-08-24 08:32] LABS: ALT 36 U/L (19-67); AST 38 U/L (0-48); Albumin * 2.7 gm/dl (3.4-5.0); Alkaline Phosphatase * 88 U/L (50-170); Anion Gap 12.6 mmol/L (6.8-13.8); BUN/Creatinine Ratio 10.2 (9.0-21.6); Bilirubin, Total 0.5 mg/dL (0.0-1.1); Blood Urea Nitrogen 11 mg/dL (3-23); Ca. Corrected For Albumin 10.1 mg/dL (8.4-10.2); Calcium * 9.4 mg/dL (7.9-10.9); Carbon Dioxide 28.7 mmol/L (24-32.6); Chloride 93 mmol/L (97-106); Ferritin 350 ng/mL (8-252); Glucose * 119 mg/dL (70-110); Potassium 3.3 mmol/L (3.4-4.6); Sodium 131 mmol/L (132-142); Total Protein 6.9 gm/dL (6.2-8.2)
[2020-08-24] MEDS: SACCHAROMYCES BOULARDII 250 MG CAPSULE PO SCH ×2 (08:33→20:59)
[2020-08-24] MEDS: LOSARTAN POTASSIUM 50 MG TABLET PO SCH (08:33)
--- NOTE | 2020-08-24 08:54 | PN ---
Subjective - Date and Time Seen Date: 08/24/20 Time: 08:51 Subjective Narrative: Afebrile. Had 3 BMs yesterday and had 2 BM this morning, small and soft, not bloody. had abdominal pain yesterday but today none. Objective - Review of Systems Generalized/Overall Review: Reports: Weakness. Denies: Chills, Fever EENTM: Denies: Blurred Vision Respiratory: Denies: Cough, Shortness of Breath, Orthopnea Cardiac: Denies: Chest Pain, Edema, Palpitations Abdominal: Reports: Abdominal Pain. Denies: Nausea, Vomiting, Melena, Bright blood from rectum Genitourinary Symptoms: Reports: Itching. Denies: Urgency, Frequency Musculoskeletal Complaints: Reports: Joint Pain Neurological: Reports: Headache Skin: Denies: Lesions, Rash Misc: All systems neg except as marked - Vitals Vitals: Last Vital Signs Temp 36.7 C 08/24/20 06:18 Pulse 78 08/24/20 08:33 Resp 18 08/24/20 06:18 BP 148/82 08/24/20 08:33 Pulse Ox 94 08/24/20 06:18 - Abnormal Lab Findings Abnormal Lab Findings: Abnormal Lab Results 08/23/20 08/23/20 08/23/20 Range/Units 10:00 10:00 10:00 WBC (4.0-10.5) K/mm3 RBC (4.2-5.4) M/mm3 Hgb (12.5-16.0) gm/dL Hct (37.0-47.0) % Immature Gran % (Auto) (0.001-0.429) % Immature Gran # (Auto) (0.000-0.0310) K/mm3 Neutrophils % (42-75.0) % Lymphocytes % (20-51) % Neutrophils # (1.3-6.0) K/mm3 Lymphocytes # (1.5-3.5) k/mm3 ESR 73 H (0-15) mm/hr PT 34.4 H (9.1-10.7) Seconds INR (Anticoag Therapy) 3.51 H (0.92-1.08) INR Sodium (132-142) mmol/L Potassium (3.4-4.6) mmol/L Chloride (97-106) mmol/L Est GFR (Non-Af Amer) (60-130) mL/min Random Glucose (70-110) mg/dL Iron (35-120) mcg/dL TIBC (260-445) mcg/dL Transferrin % Sat (15-55) % Ferritin (8-252) ng/mL C-Reactive Prot, Quant 7.3 H (0.0-0.9) mg/dL Albumin (3.4-5.0) gm/dl Vitamin B12 (193-986) pg/mL TSH (0.358-3.74) uIU/mL Stool Occult Blood 08/23/20 08/23/20 08/23/20 Range/Units 10:00 13:06 20:10 WBC (4.0-10.5) K/mm3 RBC (4.2-5.4) M/mm3 Hgb (12.5-16.0) gm/dL Hct (37.0-47.0) % Immature Gran % (Auto) (0.001-0.429) % Immature Gran # (Auto) (0.000-0.0310) K/mm3 Neutrophils % (42-75.0) % Lymphocytes % (20-51) % Neutrophils # (1.3-6.0) K/mm3 Lymphocytes # (1.5-3.5) k/mm3 ESR (0-15) mm/hr PT (9.1-10.7) Seconds INR (Anticoag Therapy) (0.92-1.08) INR Sodium (132-142) mmol/L Potassium (3.4-4.6) mmol/L Chloride (97-106) mmol/L Est GFR (Non-Af Amer) 56 L D (60-130) mL/min Random Glucose 143 H D (70-110) mg/dL Iron (35-120) mcg/dL TIBC (260-445) mcg/dL Transferrin % Sat (15-55) % Ferritin (8-252) ng/mL C-Reactive Prot, Quant (0.0-0.9) mg/dL Albumin (3.4-5.0) gm/dl Vitamin B12 (193-986) pg/mL TSH 5.591 H (0.358-3.74) uIU/mL Stool Occult Blood Positive H 08/24/20 08/24/20 08/24/20 Range/Units 07:00 07:10 07:10 WBC 11.6 H (4.0-10.5) K/mm3 RBC 3.31 L (4.2-5.4) M/mm3 Hgb 10.0 L (12.5-16.0) gm/dL Hct 30.8 L (37.0-47.0) % Immature Gran % (Auto) 0.50 H (0.001-0.429) % Immature Gran # (Auto) 0.06 H (0.000-0.0310) K/mm3 Neutrophils % 81.6 H (42-75.0) % Lymphocytes % 10.0 L (20-51) % Neutrophils # 9.5 H (1.3-6.0) K/mm3 Lymphocytes # 1.16 L (1.5-3.5) k/mm3 ESR (0-15) mm/hr PT 45.5 H (9.1-10.7) Seconds INR (Anticoag Therapy) 4.71 H* (0.92-1.08) INR Sodium (132-142) mmol/L Potassium (3.4-4.6) mmol/L Chloride (97-106) mmol/L Est GFR (Non-Af Amer) (60-130) mL/min Random Glucose (70-110) mg/dL Iron 21 L (35-120) mcg/dL TIBC 236 L (260-445) mcg/dL Transferrin % Sat 9 L (15-55) % Ferritin (8-252) ng/mL C-Reactive Prot, Quant (0.0-0.9) mg/dL Albumin (3.4-5.0) gm/dl Vitamin B12 (193-986) pg/mL TSH (0.358-3.74) uIU/mL Stool Occult Blood 08/24/20 Range/Units 07:10 WBC (4.0-10.5) K/mm3 RBC (4.2-5.4) M/mm3 Hgb (12.5-16.0) gm/dL Hct (37.0-47.0) % Immature Gran % (Auto) (0.001-0.429) % Immature Gran # (Auto) (0.000-0.0310) K/mm3 Neutrophils % (42-75.0) % Lymphocytes % (20-51) % Neutrophils # (1.3-6.0) K/mm3 Lymphocytes # (1.5-3.5) k/mm3 ESR (0-15) mm/hr PT (9.1-10.7) Seconds INR (Anticoag Therapy) (0.92-1.08) INR Sodium 131 L (132-142) mmol/L Potassium 3.3 L (3.4-4.6) mmol/L Chloride 93 L (97-106) mmol/L Est GFR (Non-Af Amer) 51 L (60-130) mL/min Random Glucose 119 H (70-110) mg/dL Iron (35-120) mcg/dL TIBC (260-445) mcg/dL Transferrin % Sat (15-55) % Ferritin 350 H (8-252) ng/mL C-Reactive Prot, Quant (0.0-0.9) mg/dL Albumin 2.7 L (3.4-5.0) gm/dl Vitamin B12 1164 H (193-986) pg/mL TSH (0.358-3.74) uIU/mL Stool Occult Blood - Exam Constitutional: Present: Alert, Oriented x3, Cooperative, Elderly ENT Exam: Present: hearing grossly normal Neck: Present: supple. Absent: lymphadenopathy (R), lymphadenopathy (L) Respiratory: Present: No rales, No wheezing. Absent: lungs clear Cardiovascular/Chest: Present: no JVD, systolic murmur. Absent: regular rate, rhythm Abdomen: Present: Normal bowel sounds, soft, no rebound tenderness, distended Extremity: Present: no calf tenderness, pedal edema Assessment/Plan Plan Narrative: Mary was admitted for abdominal pain, constipation and was found to have colitis on CT scan, inflammatory versus infectious. Abdominal x-ray showed ileus probable partial small bowel obstruction. Na was 125. ESR/CRP/WBC were elevated. She was started on IV fluids and IV antibiotics and kept on clear liquids. She was recently treated with antibiotics for UTI and so C. difficile was tested but it was negative. Her stool culture preliminary reading also was negative. IBD panel was a send out and is still pending. Surgery was consulted. We will refer her to physical therapy/Occupational therapy for her right shoulder. We will continue with present management and current medications. - Problems/Diagnosis (1) Abdominal pain Problem: Acute Qualifiers: Abdominal location: lower abdomen, unspecified Qualified Code(s): R10.30 - Lower abdominal pain, unspecified (2) Colitis Problem: Acute (3) Hyponatremia Problem: Acute (4) Anemia Problem: Chronic Qualifiers: Anemia type: iron deficiency (5) UTI (urinary tract infection) Problem: Resolved (6) CAD (coronary artery disease) Problem: Chronic Qualifiers: Coronary Disease-Associated Artery/Lesion type: [place] artery [place] vs. transplanted heart: [place] heart Associated angina: without angina Qualified Code(s): I25.10 - Atherosclerotic heart disease of [place] coronary artery without angina pectoris (7) Hyperlipidemia Problem: Chronic Qualifiers: Hyperlipidemia type: pure hypercholesterolemia Qualified Code(s): E78.00 - Pure hypercholesterolemia, unspecified (8) Hypothyroidism Problem: Chronic Qualifiers: Hypothyroidism type: acquired Qualified Code(s): E03.9 - Hypothyroidism, unspecified (9) DVT (deep venous thrombosis) Problem: Chronic (10) Hypertension Problem: Chronic Qualifiers: Hypertension type: essential hypertension Qualified Code(s): I10 - Essential (primary) hypertension
[2020-08-24] MEDS: POTASSIUM CHLORIDE 40 MEQ in NORMAL SALINE 1,000 ML IV SCH (12:52)
[2020-08-24] MEDS: FERROUS SULFATE 325 MG TABLET PO SCH (17:02)
[2020-08-24] MEDS: POTASSIUM CHLORIDE 20 MEQ TABLET.SA PO SCH (17:02)
[2020-08-24] MEDS: POTASSIUM CHLORIDE 10 MEQ in NORMAL SALINE 1,000 ML IV SCH (23:13)
[2020-08-25] MEDS: PIPERACILLIN SODIUM/TAZOBACTAM 3.375 GM in DEXTROSE 5 % IN WATER 100 ML IV SCH ×6 (03:52→19:46)
[2020-08-25 06:37] LABS: Hematocrit 27.7 % (37.0-47.0); Mean Cell Volume 93.6 fl (78-100); Mean Corpuscular Hemoglobin 30.4 pg (27-31); Mean Corpuscular Hgb Conc 32.5 g/dl (32-36); Mean Platelet Volume 8.7 fl (8-12.5); Neutrophil # 6.7 K/mm3 (1.3-6.0); Neutrophil % 76.5 % (42-75.0); Platelet Count 396 K/mm3 (150-450); Red Blood Count 2.96 M/mm3 (4.2-5.4); Red Cell Distribution Width 12.7 % (11.5-14.0); White Blood Count 8.7 K/mm3 (4.0-10.5)
[2020-08-25 06:38] LABS: Anion Gap 10.7 mmol/L (6.8-13.8); BUN/Creatinine Ratio 7.5 (9.0-21.6); Calcium * 8.7 mg/dL (7.9-10.9); Carbon Dioxide 26.9 mmol/L (24-32.6); Estimated Creat Clear 44.1; Potassium 3.6 mmol/L (3.4-4.6)
[2020-08-25 06:51] LABS: Prothrombin Time (Patient) 45.1 Seconds (9.1-10.7)
[2020-08-25 06:59] LABS: INR 4.67 INR (0.92-1.08)
[2020-08-25] MEDS: LEVOTHYROXINE SODIUM 100 MCG TABLET PO SCH (07:28)
[2020-08-25] MEDS: ACETAMINOPHEN 325 MG TABLET PO PRN ×3 (07:28→21:26)
--- NOTE | 2020-08-25 07:56 | PN ---
Subjective - Date and Time Seen Date: 08/25/20 Time: 07:47 Subjective Narrative: had 2 BM. still has abdominal pain but is not sure if it is really pain. no intestinal angina. WBC back to normal. INR still elevated. Objective - Review of Systems Generalized/Overall Review: Reports: Weakness. Denies: Chills, Fever EENTM: Denies: Blurred Vision, Double Vision Respiratory: Denies: Cough, Shortness of Breath, Orthopnea Cardiac: Denies: Chest Pain, Edema, Palpitations Abdominal: Reports: Abdominal Pain. Denies: Nausea, Vomiting, Hematemesis, Melena Genitourinary Symptoms: Denies: Urgency, Frequency Musculoskeletal Complaints: Reports: Joint Pain Neurological: Denies: Headache Skin: Denies: Lesions, Rash Misc: All systems neg except as marked - Vitals Vitals: Last Vital Signs Temp 36.9 C 08/25/20 06:39 Pulse 75 08/25/20 06:39 Resp 14 08/25/20 06:39 BP 157/78 H 08/25/20 06:39 Pulse Ox 96 08/25/20 06:39 - Abnormal Lab Findings Abnormal Lab Findings: Abnormal Lab Results 08/23/20 08/24/20 08/24/20 Range/Units 10:00 07:00 07:10 RBC (4.2-5.4) M/mm3 Hgb (12.5-16.0) gm/dL Hct (37.0-47.0) % Immature Gran % (Auto) (0.001-0.429) % Immature Gran # (Auto) (0.000-0.0310) K/mm3 Neutrophils % (42-75.0) % Lymphocytes % (20-51) % Eosinophils % (0.0-3.0) % Neutrophils # (1.3-6.0) K/mm3 Lymphocytes # (1.5-3.5) k/mm3 PT 45.5 H (9.1-10.7) Seconds INR (Anticoag Therapy) 4.71 H* (0.92-1.08) INR Sodium (132-142) mmol/L Potassium (3.4-4.6) mmol/L Chloride (97-106) mmol/L Est GFR (Non-Af Amer) (60-130) mL/min BUN/Creatinine Ratio (9.0-21.6) Random Glucose (70-110) mg/dL Serum Osmolality 255 L mOsm/kg Iron 21 L (35-120) mcg/dL TIBC 236 L (260-445) mcg/dL Transferrin % Sat 9 L (15-55) % Ferritin (8-252) ng/mL Albumin (3.4-5.0) gm/dl Vitamin B12 (193-986) pg/mL 08/24/20 08/25/20 08/25/20 Range/Units 07:10 06:29 06:29 RBC 2.96 L (4.2-5.4) M/mm3 Hgb 9.0 L (12.5-16.0) gm/dL Hct 27.7 L (37.0-47.0) % Immature Gran % (Auto) 0.60 H (0.001-0.429) % Immature Gran # (Auto) 0.05 H (0.000-0.0310) K/mm3 Neutrophils % 76.5 H (42-75.0) % Lymphocytes % 9.8 L (20-51) % Eosinophils % 3.5 H (0.0-3.0) % Neutrophils # 6.7 H (1.3-6.0) K/mm3 Lymphocytes # 0.86 L (1.5-3.5) k/mm3 PT 45.1 H (9.1-10.7) Seconds INR (Anticoag Therapy) 4.67 H* (0.92-1.08) INR Sodium 131 L (132-142) mmol/L Potassium 3.3 L (3.4-4.6) mmol/L Chloride 93 L (97-106) mmol/L Est GFR (Non-Af Amer) 51 L (60-130) mL/min BUN/Creatinine Ratio (9.0-21.6) Random Glucose 119 H (70-110) mg/dL Serum Osmolality mOsm/kg Iron (35-120) mcg/dL TIBC (260-445) mcg/dL Transferrin % Sat (15-55) % Ferritin 350 H (8-252) ng/mL Albumin 2.7 L (3.4-5.0) gm/dl Vitamin B12 1164 H (193-986) pg/mL 08/25/20 Range/Units 06:29 RBC (4.2-5.4) M/mm3 Hgb (12.5-16.0) gm/dL Hct (37.0-47.0) % Immature Gran % (Auto) (0.001-0.429) % Immature Gran # (Auto) (0.000-0.0310) K/mm3 Neutrophils % (42-75.0) % Lymphocytes % (20-51) % Eosinophils % (0.0-3.0) % Neutrophils # (1.3-6.0) K/mm3 Lymphocytes # (1.5-3.5) k/mm3 PT (9.1-10.7) Seconds INR (Anticoag Therapy) (0.92-1.08) INR Sodium (132-142) mmol/L Potassium (3.4-4.6) mmol/L Chloride (97-106) mmol/L Est GFR (Non-Af Amer) (60-130) mL/min BUN/Creatinine Ratio 7.5 L (9.0-21.6) Random Glucose (70-110) mg/dL Serum Osmolality mOsm/kg Iron (35-120) mcg/dL TIBC (260-445) mcg/dL Transferrin % Sat (15-55) % Ferritin (8-252) ng/mL Albumin (3.4-5.0) gm/dl Vitamin B12 (193-986) pg/mL - Exam Constitutional: Present: Alert, Oriented x3, Cooperative, Elderly ENT Exam: Present: hard of hearing Neck: Present: supple. Absent: lymphadenopathy (R), lymphadenopathy (L) Respiratory: Present: normal breath sounds, No rales, No wheezing Cardiovascular/Chest: Present: regular rate, rhythm, no JVD, systolic murmur Abdomen: Present: Normal bowel sounds, soft, no rebound tenderness, tender, distended Extremity: Present: no calf tenderness. Absent: lower extremity edema Assessment/Plan Plan Narrative: hospital day 3 of Mary Samano admitted for abdominal pain/constipation with colitis on CT scan, infectious versus inflammatory. She is on IV fluids, IV Zosyn and clear liquids. Her white blood cell count is back to normal. She still has some abdominal discomfort but is not sure if she can call it pain. We will progress her to full liquids. We will do a follow-up abdominal x-ray. Her hyponatremia is resolved. Her INR is still elevated despite holding her Coumadin since admission and being that she had a positive occult blood stool in her stool will likely give her 2 mg of vitamin K today. Pharmacy to follow-up her Coumadin dose and INR levels. - Problems/Diagnosis (1) Abdominal pain Problem: Acute Qualifiers: Abdominal location: lower abdomen, unspecified Qualified Code(s): R10.30 - Lower abdominal pain, unspecified (2) Colitis Problem: Acute (3) Hyponatremia Problem: Resolved (4) Anemia Problem: Chronic Qualifiers: Anemia type: iron deficiency (5) UTI (urinary tract infection) Problem: Resolved (6) CAD (coronary artery disease) Problem: Chronic Qualifiers: Coronary Disease-Associated Artery/Lesion type: [place] artery [place] vs. transplanted heart: [place] heart Associated angina: without angina Qualified Code(s): I25.10 - Atherosclerotic heart disease of [place] coronary artery without angina pectoris (7) Hyperlipidemia Problem: Chronic Qualifiers: Hyperlipidemia type: pure hypercholesterolemia Qualified Code(s): E78.00 - Pure hypercholesterolemia, unspecified (8) Hypothyroidism Problem: Chronic Qualifiers: Hypothyroidism type: acquired Qualified Code(s): E03.9 - Hypothyroidism, unspecified (9) DVT (deep venous thrombosis) Problem: Chronic (10) Hypertension Problem: Chronic Qualifiers: Hypertension type: essential hypertension Qualified Code(s): I10 - Essential (primary) hypertension
[2020-08-25] MEDS: SACCHAROMYCES BOULARDII 250 MG CAPSULE PO SCH ×2 (08:21→21:22)
[2020-08-25] MEDS: FERROUS SULFATE 325 MG TABLET PO SCH ×2 (08:22→17:52)
[2020-08-25] MEDS: LOSARTAN POTASSIUM 50 MG TABLET PO SCH (08:22)
[2020-08-25] MEDS: POTASSIUM CHLORIDE 20 MEQ TABLET.SA PO SCH ×2 (08:23→17:52)
[2020-08-25] MEDS: POLYETHYLENE GLYCOL 3350 17 GM PACKET PO SCH (08:23)
[2020-08-25] MEDS: POTASSIUM CHLORIDE 40 MEQ in NORMAL SALINE 1,000 ML IV SCH (09:34)
[2020-08-25] MEDS: POTASSIUM CHLORIDE 10 MEQ in NORMAL SALINE 1,000 ML IV SCH ×2 (10:02→19:46)
[2020-08-25 18:02] LABS: P-ANCA Titer DNR titer (<1:20)
[2020-08-25] MEDS: SENNOSIDES/DOCUSATE SODIUM 1 TAB TABLET PO SCH (21:22)
[2020-08-26] MEDS: PIPERACILLIN SODIUM/TAZOBACTAM 3.375 GM in DEXTROSE 5 % IN WATER 100 ML IV SCH ×6 (03:23→20:33)
[2020-08-26] MEDS: ACETAMINOPHEN 325 MG TABLET PO PRN (06:53)
[2020-08-26 06:55] LABS: Hematocrit 27.4 % (37.0-47.0); Hemoglobin 8.9 gm/dL (12.5-16.0); Mean Cell Volume 92.9 fl (78-100); Mean Corpuscular Hemoglobin 30.2 pg (27-31); Mean Corpuscular Hgb Conc 32.5 g/dl (32-36); Mean Platelet Volume 8.4 fl (8-12.5); Neutrophil # 5.4 K/mm3 (1.3-6.0); Neutrophil % 73.3 % (42-75.0); Platelet Count 385 K/mm3 (150-450); Red Blood Count 2.95 M/mm3 (4.2-5.4); Red Cell Distribution Width 12.8 % (11.5-14.0); White Blood Count 7.4 K/mm3 (4.0-10.5)
[2020-08-26] MEDS: LEVOTHYROXINE SODIUM 100 MCG TABLET PO SCH (06:55)
[2020-08-26 07:04] LABS: INR 2.62 INR (0.92-1.08)
[2020-08-26 07:14] LABS: Anion Gap 11.6 mmol/L (6.8-13.8); BUN/Creatinine Ratio 5.4 (9.0-21.6); Calcium * 8.6 mg/dL (7.9-10.9); Carbon Dioxide 25.9 mmol/L (24-32.6); Estimated Creat Clear 37.9; Potassium 3.5 mmol/L (3.4-4.6)
[2020-08-26] MEDS: POTASSIUM CHLORIDE 10 MEQ in NORMAL SALINE 1,000 ML IV SCH ×2 (07:49→21:26)
--- NOTE | 2020-08-26 07:57 | PN ---
Subjective - Date and Time Seen Date: 08/26/20 Time: 07:55 Subjective Narrative: patient is feeling better. tolerated full liquids. afebrile. WBC contnue to be back to normal. day 4 of IV Zosyn. Objective - Review of Systems Generalized/Overall Review: Reports: Weakness. Denies: Chills, Fever EENTM: Denies: Blurred Vision Respiratory: Denies: Cough, Shortness of Breath Cardiac: Denies: Chest Pain, Edema, Palpitations Abdominal: Reports: Other - loose stools. Denies: Nausea, Vomiting, Hematemesis, Abdominal Pain Musculoskeletal Complaints: Reports: Joint Pain Neurological: Denies: Headache Skin: Denies: Lesions, Rash Misc: All systems neg except as marked - Vitals Vitals: Last Vital Signs Temp 37.3 C 08/26/20 06:37 Pulse 82 08/26/20 06:37 Resp 20 08/26/20 06:37 BP 160/77 H 08/26/20 06:37 Pulse Ox 99 08/26/20 06:37 - Abnormal Lab Findings Abnormal Lab Findings: Abnormal Lab Results 08/26/20 08/26/20 08/26/20 Range/Units 06:45 06:45 06:45 RBC 2.95 L (4.2-5.4) M/mm3 Hgb 8.9 L (12.5-16.0) gm/dL Hct 27.4 L (37.0-47.0) % Lymphocytes % 12.2 L (20-51) % Eosinophils % 5.3 H (0.0-3.0) % Lymphocytes # 0.90 L (1.5-3.5) k/mm3 PT 26.0 H (9.1-10.7) Seconds INR (Anticoag Therapy) 2.62 H (0.92-1.08) INR BUN/Creatinine Ratio 5.4 L (9.0-21.6) - Exam Constitutional: Present: Alert, Oriented x3, Cooperative, Elderly ENT Exam: Present: hearing grossly normal Neck: Present: supple. Absent: lymphadenopathy (R), lymphadenopathy (L) Respiratory: Present: normal breath sounds, stridor, wheezing Cardiovascular/Chest: Present: regular rate, rhythm, no JVD, systolic murmur Abdomen: Present: Normal bowel sounds, soft, nontender, distended - less Extremity: Present: no calf tenderness. Absent: lower extremity edema Assessment/Plan Plan Narrative: Mary is feeling much better. Her abdomen is flatter and denied any tenderness although her follow-up abdominal x-ray still showed dilated small bowel and colon. Her white blood cell count continues to be normal for the second day. She is on day 4 of IV Zosyn. She tolerated clear liquid and then full liquids yesterday. We will likely progress her to soft diet today. We will give her at least 5 days of IV antibiotics and anticipate discharge tomorrow. Her CDiff , Stool culture, IBD panel were negative.Will discuss with Dr. Draper if patient needs endoscopy for more definitive diagnosis. Likely still infectious as she responded to antibiotics- WBC going back to normal. This will be unlikely with ischemic colitis unless the ischemia did not progress to infarction-but will add LDH and CK. ADDENDUM: Dr. Draper is planning to do colonoscopy in the morning. She is back to clear liquids and then NPO for the procedure tomorrow. - Problems/Diagnosis (1) Abdominal pain Problem: Acute Qualifiers: Abdominal location: lower abdomen, unspecified Qualified Code(s): R10.30 - Lower abdominal pain, unspecified (2) Colitis Problem: Acute (3) Hyponatremia Problem: Resolved (4) Anemia Problem: Chronic Qualifiers: Anemia type: iron deficiency (5) UTI (urinary tract infection) Problem: Resolved (6) CAD (coronary artery disease) Problem: Chronic Qualifiers: Coronary Disease-Associated Artery/Lesion type: [place] artery [place] vs. transplanted heart: [place] heart Associated angina: without angina Qualified Code(s): I25.10 - Atherosclerotic heart disease of [place] coronary artery without angina pectoris (7) Hyperlipidemia Problem: Chronic Qualifiers: Hyperlipidemia type: pure hypercholesterolemia Qualified Code(s): E78.00 - Pure hypercholesterolemia, unspecified (8) Hypothyroidism Problem: Chronic Qualifiers: Hypothyroidism type: acquired Qualified Code(s): E03.9 - Hypothyroidism, unspecified (9) DVT (deep venous thrombosis) Problem: Chronic (10) Hypertension Problem: Chronic Qualifiers: Hypertension type: essential hypertension Qualified Code(s): I10 - Essential (primary) hypertension
[2020-08-26] MEDS: POLYETHYLENE GLYCOL 3350 17 GM PACKET PO SCH (09:38)
[2020-08-26] MEDS: LOSARTAN POTASSIUM 50 MG TABLET PO SCH (09:39)
[2020-08-26] MEDS: POTASSIUM CHLORIDE 20 MEQ TABLET.SA PO SCH ×2 (09:40→17:48)
[2020-08-26] MEDS: SACCHAROMYCES BOULARDII 250 MG CAPSULE PO SCH ×2 (09:40→20:33)
[2020-08-26] MEDS: FERROUS SULFATE 325 MG TABLET PO SCH ×2 (09:40→17:48)
--- NOTE | 2020-08-26 11:11 | PN ---
Subjective - Date and Time Seen Date: 08/26/20 Time: 11:06 Subjective Narrative: She was initially admitted with pain and constipation after several visits. Her abdominal pain has improved considerably after moving her bowels. Her white blood cell count has returned to normal. Plan is for some IV antibiotics to complete the course. Objective - Review of Systems Generalized/Overall Review: Denies: Chills, Fever EENTM: Reports: No Symptoms Reported Respiratory: Reports: No Symptoms Reported Cardiac: Reports: No Symptoms Reported Abdominal: Reports: Other - Her abdominal pain is better. Genitourinary Symptoms: Reports: No Symptoms Reported Musculoskeletal Complaints: Reports: Other - Right arm immobilizer Neurological: Reports: No Symptoms Reported Skin: Reports: No Symptoms Reported - Vitals Vitals: Last Vital Signs Temp 37.3 C 08/26/20 06:37 Pulse 82 08/26/20 09:39 Resp 20 08/26/20 06:37 BP 160/77 H 08/26/20 09:39 Pulse Ox 99 08/26/20 06:37 - Abnormal Lab Findings Abnormal Lab Findings: Abnormal Lab Results 08/26/20 08/26/20 08/26/20 Range/Units 06:45 06:45 06:45 RBC 2.95 L (4.2-5.4) M/mm3 Hgb 8.9 L (12.5-16.0) gm/dL Hct 27.4 L (37.0-47.0) % Lymphocytes % 12.2 L (20-51) % Eosinophils % 5.3 H (0.0-3.0) % Lymphocytes # 0.90 L (1.5-3.5) k/mm3 PT 26.0 H (9.1-10.7) Seconds INR (Anticoag Therapy) 2.62 H (0.92-1.08) INR BUN/Creatinine Ratio 5.4 L (9.0-21.6) - Exam Constitutional: Present: Alert, Oriented x3, Cooperative, No distress ENT Exam: Present: normal ENT inspection Neck: Present: normal inspection Respiratory: Present: no respiratory distress Cardiovascular/Chest: Present: regular rate, rhythm Abdomen: Present: other - Abdomen is now soft and much less distended. No tenderness. 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 Whether simple constipation from pain medication or ischemic colitis is unclear. Her IBD panel is negative and white blood cell count has normalized, A prep for her colonoscopy is best performed in the hospital due to her not being able to use her right arm and get up without assistance. Pamphlets on colonoscopy and colon screening have been reviewed with her previously and were left with her to review again. Explained that a colonoscopy would be beneficial to establish a diagnosis, and should be safe with her white blood cell count and abdominal pain resolved. After interactive discussion her questions were answered to her apparent satisfaction and she has given informed consent for colonoscopy. We will administer Suprep today and early tomorrow with n.p.o. after 9 AM meds for projected colonoscopy at noon tomorrow. - Problems/Diagnosis (1) Abdominal pain Problem: Acute Qualifiers: Abdominal location: lower abdomen, unspecified Qualified Code(s): R10.30 - Lower abdominal pain, unspecified
[2020-08-26] MEDS ORDERED: SODIUM, POTASSIUM,MAG SULFATES 1 KIT KIT PO ONE (16:00)
[2020-08-26 16:06] LABS: CK Total * 29 U/L (0-259); LD 246 U/L (81-234)
[2020-08-26] MEDS: SENNOSIDES/DOCUSATE SODIUM 1 TAB TABLET PO SCH (20:33)
[2020-08-27] MEDS: PIPERACILLIN SODIUM/TAZOBACTAM 3.375 GM in DEXTROSE 5 % IN WATER 100 ML IV SCH ×4 (04:37→13:10)
[2020-08-27 06:37] LABS: Prothrombin Time (Patient) 15.7 Seconds (9.1-10.7)
[2020-08-27 06:44] LABS: INR 1.54 INR (0.92-1.08)
--- NOTE | 2020-08-27 07:25 | ANES ---
Anesthesia Pre Procedure Eval Vitals/Labs: Last Vital Signs Temp 36.1 C 08/27/20 06:54 Pulse 82 08/27/20 06:54 Resp 16 08/27/20 06:54 BP 159/88 H 08/27/20 06:54 Pulse Ox 98 08/27/20 06:54 HOME MEDICATIONS Cholecalciferol [Vitamin D] 600 units PO DAILY 10/11/12 [Last Taken 08/08/17] Multivitamins [Multivitamin Betty] 1 cap PO DAILY 10/11/12 [Last Taken 08/08/17] [place]-3/Dha/Epa/Fish Oil [Fish Oil Dr 500 mg Softgel] 4,000 mg PO DAILY 10/11/12 [Last Taken 08/08/17] Ubidecarenone [Co Q-10] 100 mg PO DAILY 10/11/12 [Last Taken 08/08/17] Ascorbic Acid [Vitamin C] 1,000 mg PO DAILY 10/25/12 [Last Taken 08/08/17] Calcium Carbonate [Tums] 1,125 mg PO DAILY 08/08/17 [Last Taken 08/08/17] Nitroglycerin 0.4 mg SL .Q 5MIN PRN,X3ONLY PRN 08/08/17 [Last Taken Unknown] polyethylene glycol 3350 17 gram/dose oral powder 17 g PO DAILY #119 g 11/06/18 [Last Taken Unknown] Wheat Dextrin [Benefiber] 1 ea PO PRN PRN 11/29/19 [Last Taken Unknown] losartan 50 mg tablet 50 mg PO DAILY #90 tab 03/18/20 [Last Taken Unknown] atorvastatin 40 mg tablet 40 mg PO HS #90 tab 06/16/20 [Last Taken Unknown] Synthroid 75 mcg tablet 75 mcg PO DAILY #90 tab NS 06/17/20 [Last Taken Unknown] Warfarin Sodium [Coumadin] 5 mg PO DAILY 08/09/20 [Last Taken 08/03/20 07:00] HYDROcodone/ACETAMINOPHEN [[place] 5-325] 1 - 2 ea PO Q4H PRN #50 tab 08/10/20 [Last Taken Unknown] Sennosides/Docusate Sodium [Senokot-S] 2 tab PO HS #60 tab 08/10/20 [Last Taken Unknown] docusate sodium 100 mg tablet 100 mg PO QID #30 tab 08/13/20 [Last Taken Unknown] cefdinir 300 mg capsule 300 mg PO BID 5 Days #10 cap 08/20/20 [Last Taken Unknown] Allergies/Adverse Reactions: Allergies Allergy/AdvReac Type Severity Reaction Status Date / Time diclofenac Allergy Mild Other Verified 08/22/20 04:20 ceftriaxone [From Rocephin] Allergy Unknown shaky, Verified 08/22/20 04:20 dizziness ciprofloxacin [From Cipro] Allergy Unknown unknown Verified 08/22/20 04:20 ciprofloxacin HCl Allergy Unknown unknown Verified 08/22/20 04:20 [From Cipro] Iodinated Contrast Media Allergy Unknown unknown Verified 08/22/20 04:20 Sulfa (Sulfonamide Allergy Unknown unknown Verified 08/22/20 04:20 Antibiotics) [Sulfa(Sulfonamide Antibiotics)] sulfamethoxazole Allergy Unknown unknown Verified 08/22/20 04:20 [From Bactrim] trimethoprim [From Bactrim] Allergy Unknown unknown Verified 08/22/20 04:20 valacyclovir [From Valtrex] Allergy Unknown RASH Verified 08/22/20 04:20 guaifenesin [From Mucinex] AdvReac Intermediate dizzy, Verified 08/22/20 04:20 stomach pain, diarrhea - Planned Procedure Planned Procedure: colonoscopy Medication List Reviewed:: Yes Allergies Verified: Yes Medical History (Last Reviewed 08/27/20 @ 07:23 by Farrukh Kate CRNA) COVID-19 vaccine administered (Acute) Seasonal allergic rhinitis (Acute) Encounter for pessary maintenance (Acute) Patient without complaints Pessary cleaned and replaced No evidence of vaginal erosion Has received influenza vaccination in current influenza season (Acute) Onset Date: 12/2017 Osteopenia (Chronic) Contusion, knee and lower leg (Acute) Vaginal bleeding (Acute) Fall (Acute) Nasal fracture (Acute) reduced Facial laceration (Acute) healed Arm laceration (Acute) Hematoma (Chronic) barely visible CAD (coronary artery disease) (Chronic) s/p JAH in 2010 Anemia (Chronic) Contusion (Acute) Hyperlipidemia (Chronic) Hypothyroidism (Chronic) Pain (Acute) Thoracic outlet syndrome (Acute) Syncope (Resolved) Constipation (Acute) Urinary tract infection (Suspected) Nausea and vomiting in adult (Acute) Weakness generalized (Acute) Constipation by delayed colonic transit (Acute) Improved DVT (deep venous thrombosis) (Chronic) History of recurrent DVT Skin tear of hand without complication (Acute) Hemorrhoid (Acute) Bleeding from wound (Acute) Hyponatremia (Resolved) Feeling unwell (Acute) Hypertension (Chronic) Arthropathy of right shoulder Adnexal mass Onset Date: ~2012 Arthritis Onset Date: Unknown Coronary artery disease Onset Date: ~2010 status post Promus 3.0 x 23 mm drug-eluting stent to the L[place] [address] [place] in [place], [place] Essential hypertension Onset Date: ~2013 Hypercholesteremia Onset Date: Unknown Hyperlipidemia Onset Date: Unknown Mitral regurgitation Onset Date: Unknown Shoulder impingement Onset Date: ~2012 Splenic artery aneurysm Onset Date: Unknown Uterovaginal prolapse Onset Date: ~2016 Aneurysm Onset Date: Unknown cerebral Biceps tendon rupture Onset Date: Unknown DVT (deep venous thrombosis) Onset Date: ~2016 Lumbar spine strain Onset Date: ~2012 Rotator cuff rupture Onset Date: ~2012 Surgical History (Last Reviewed 08/27/20 @ 07:23 by Farrukh Kate CRNA) History of shoulder surgery Onset Date: ~08/09/20 Right H/O coronary angiogram Onset Date: ~2010 History of colonoscopy Onset Date: ~2011 History of coronary artery stent placement Onset Date: ~2010 History of dilation and curettage Onset Date: ~2009 History of removal of cyst Onset Date: ~2015 History of surgical removal of skin lesion Onset Date: ~2016 removal of benign tumor from back of neck - Procedure done in [place] while staying there for the winter. Family History (Last Reviewed 08/27/20 @ 07:23 by Farrukh Kate CRNA) Mother , age 76, heart disease- bypass Heart disease Father , age 91, heart problems, bypass, [place] Heart disease Myocardial infarction Brother Hx of CABG - Family Anesthesia History Family History:: no untoward family reactions to anesthesia, no familial bleeding tendencies, no family history of clotting disorders, no family history of premature - Airway/Neck/Teeth Within Normal Limits:: Yes Teeth Condition: intact Neck Exam: full range of motion Mallampatti Score: 2 Thyromental (T-M) distance: > 6 cm Mandibulo Hyoid distance: > 3 cm - Respiratory Respiratory Physical: decreased breath sounds Smoking Status: Former smoker - distant Sleep Apnea currently treated: No Sleep Apnea by current assessment: No - Cardiovascular Cardiac History: angina, CVA/stroke, CAD, hypertension Tolerate Activity: Fair Heart Sounds: S1 & S2, Regular - Gastrointestinal NPO since: today - Anesthesia Assessment and Plan ASA Class: PS, III Anesthesia Type Plan: MAC
[2020-08-27] MEDS: POTASSIUM CHLORIDE 10 MEQ in NORMAL SALINE 1,000 ML IV SCH (08:14)
[2020-08-27] MEDS: LEVOTHYROXINE SODIUM 100 MCG TABLET PO SCH (08:15)
[2020-08-27] MEDS: LOSARTAN POTASSIUM 50 MG TABLET PO SCH (08:15)
[2020-08-27] MEDS: POLYETHYLENE GLYCOL 3350 17 GM PACKET PO SCH (08:15)
[2020-08-27] MEDS: POTASSIUM CHLORIDE 20 MEQ TABLET.SA PO SCH (08:15)
[2020-08-27] MEDS: FERROUS SULFATE 325 MG TABLET PO SCH (08:15)
[2020-08-27] MEDS: SACCHAROMYCES BOULARDII 250 MG CAPSULE PO SCH (08:15)
--- NOTE | 2020-08-27 09:53 | PN ---
Subjective - Date and Time Seen Date: 08/27/20 Time: 09:47 Subjective Narrative: My belly pain is better, have been moving my bowels with no issues. Objective Objective Narrative: 85-year-old female admitted for acute colitis and constipation was evaluated at bedside this morning was found to be afebrile and in no acute distress. Patient reports her last bowel movement was 20 minutes ago and denies any pain or blood in her stools. She reports significant improvement in her abdominal pain and was nontender on physical exam. We will proceed with today's colonoscopy as planned in order to get a better idea of the etiology of her symptoms and start oral intake to see if she tolerates. Today's the patient is 52 on IV antibiotic so she has completed the course without any issues. Last labs revealed resolution of her leukocytosis and stabilization of her anemia. We will follow-up after the procedure. - Review of Systems Generalized/Overall Review: Reports: No Symptoms Reported EENTM: Reports: No Symptoms Reported Respiratory: Reports: No Symptoms Reported Cardiac: Reports: No Symptoms Reported Abdominal: Reports: No Symptoms Reported Genitourinary Symptoms: Reports: No Symptoms Reported Musculoskeletal Complaints: Reports: No Symptoms Reported Neurological: Reports: No Symptoms Reported Skin: Reports: No Symptoms Reported Endocrine: Reports: No Symptoms Reported - Vitals Vitals: Last Vital Signs Temp 36.8 C 08/27/20 09:42 Pulse 76 08/27/20 09:42 Resp 14 08/27/20 09:42 BP 129/81 08/27/20 09:42 Pulse Ox 99 08/27/20 09:42 - Abnormal Lab Findings Abnormal Lab Findings: Abnormal Lab Results 08/26/20 08/27/20 Range/Units 06:45 06:26 PT 15.7 H (9.1-10.7) Seconds INR (Anticoag Therapy) 1.54 H (0.92-1.08) INR Lactate Dehydrogenase 246 H (81-234) U/L - Exam Constitutional: Present: Alert, Oriented x3, Cooperative, Well developed, Well nourished, No distress, Elderly ENT Exam: Present: normal ENT inspection, hearing grossly normal Neck: Present: non-tender, full range of motion, supple, normal inspection, trachea midline Breasts: Present: Exam deferred, Nontender Respiratory: Present: chest non-tender, lungs clear, normal breath sounds, no respiratory distress, no accessory muscle use Cardiovascular/Chest: Present: normal peripheral pulses, regular rate, rhythm, no chest tenderness, no edema, no gallop, no JVD, no murmur, no rub Abdomen: Present: Normal bowel sounds, soft, nontender, nondistended, no rebound tenderness, no hepatospenomegaly, no masses /Rectal: Present: Exam deferred Extremity: Present: normal range of motion, non-tender, normal inspection, no pedal edema, no calf tenderness, normal capillary refill, other - Right upper extremity in a sling Skin Exam: Present: normal color, warm/dry, no cyanosis Lymphatic: Present: no adenopathy 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 - Problems/Diagnosis (1) Acute colitis Problem: Acute (2) CAD (coronary artery disease) Problem: Chronic Qualifiers: Coronary Disease-Associated Artery/Lesion type: [place] artery [place] vs. transplanted heart: [place] heart Associated angina: without angina Qualified Code(s): I25.10 - Atherosclerotic heart disease of [place] coronary artery without angina pectoris (3) Abdominal pain Problem: Resolved Qualifiers: Abdominal location: lower abdomen, unspecified Qualified Code(s): R10.30 - Lower abdominal pain, unspecified (4) Anemia Problem: Acute Qualifiers: Anemia type: iron deficiency (5) Constipation by delayed colonic transit Problem: Resolved (6) Hypertension Problem: Chronic Qualifiers: Hypertension type: essential hypertension Qualified Code(s): I10 - Essential (primary) hypertension
--- NOTE | 2020-08-27 13:11 | ANES ---
Post Anesthesia Discharge - Transfer of Care Transfer of Care handoff given to nurse: Yes - Discharge to [facility] Discharge to [facility]-no complications/pt stable: Yes - In room alert
--- NOTE | 2020-08-27 13:18 | DS ---
(1) Acute colitis Problem: Acute (2) CAD (coronary artery disease) Problem: Chronic Qualifiers: Coronary Disease-Associated Artery/Lesion type: [place] artery [place] vs. transplanted heart: [place] heart Associated angina: without angina Qualified Code(s): I25.10 - Atherosclerotic heart disease of [place] coronary artery without angina pectoris (3) Abdominal pain Problem: Resolved Qualifiers: Abdominal location: lower abdomen, unspecified Qualified Code(s): R10.30 - Lower abdominal pain, unspecified (4) Anemia Problem: Acute Qualifiers: Anemia type: iron deficiency (5) Constipation by delayed colonic transit Problem: Resolved (6) Hypertension Problem: Chronic Qualifiers: Hypertension type: essential hypertension Qualified Code(s): I10 - Essential (primary) hypertension Date of Discharge:: 08/27/20 Hospital Course: 85-year-old female admitted for acute colitis just underwent an uneventful colonoscopy which she tolerated without any issues. Dr. Draper cleared her for to be discharged home with 5 additional days of p.o. antibiotics. Patient is very happy to hear this news and was instructed to follow-up with her PCP. She is moving her bowels without any issues, her last BM was this morning and her abdominal pain has completely resolved. The patient is also tolerating oral intake without any issues. She was also told to continue progressing the diet as tolerated. Procedures Performed: see notes below List Procedures: Colonoscopy Results and Findings: Pending Mircobiology Results 08/23/20 08:00 Blood Blood Culture - Preliminary NO GROWTH AFTER 48 HOURS 08/23/20 03:12 Blood Blood Culture - Preliminary NO GROWTH AFTER 48 HOURS Lab Pending Results 08/23/20 02:58: Urine Color Pale yellow, Urine Appearance Clear, Urine pH 6.5, Ur Specific [place] <=1.005, Urine Protein Negative, Urine Glucose (UA) Negative, Urine Ketones Negative, Urine Blood Negative, Urine Nitrate Negative, Urine Bilirubin Negative, Urine Urobilinogen Normal, Ur Leukocyte Esterase Negative, Urine RBC Trace, Urine WBC Trace H, Ur Epithelial Cells 0-5, Amorphous Sediment Few - 1+, Urine Bacteria Trace, Urine Culture Comments No culture indicated 08/23/20 02:58: Ur Random Sodium 21 08/23/20 03:12: WBC 13.2 H, RBC 2.96 L, Hgb 9.2 L, Hct 26.6 L, MCV 89.9, MCH 31.1 H, MCHC 34.6, RDW 12.5, Plt Count 388, MPV 9.8, Immature Gran % (Auto) 0.50 H, Immature Gran # (Auto) 0.06 H, Neutrophils % 84.2 H, Lymphocytes % 7.6 L, Monocytes % 7.3, Eosinophils % 0.2, Basophils % 0.2, Nucleated RBC % 0.0, Neutrophils # 11.1 H, Lymphocytes # 1.01 L, Monocytes # 1.0, Eosinophils # 0.0, Absolute Basophils 0.0 08/23/20 03:12: Sodium 125 L, Plasma Sodium 125 L, Potassium 3.8, Chloride 91 L, Carbon Dioxide 30.0, Anion Gap 7.8, BUN 15, Creatinine 0.76, Est GFR (Non-Af Amer) 77 D, BUN/Creatinine Ratio 19.7, Random Glucose 106, Calcium 9.0, Calcium Adj for Albumin 9.8, Total Bilirubin 0.4, AST 35, ALT 34, Alkaline Phosphatase 85, Total Protein 6.0 L, Albumin 2.6 L, Amylase 63, Lipase 131 08/23/20 07:39: SARS-CoV-2 (PCR) Not detected 08/23/20 10:00: ESR 73 H 08/23/20 10:00: C-Reactive Prot, Quant 7.3 H 08/23/20 10:00: ANCA Screen Negative, c-ANCA Titer Dnr, p-ANCA Titer Dnr, Atypical p-ANCA Titer Dnr 08/23/20 10:00: PT 34.4 H, INR (Anticoag Therapy) 3.51 H 08/23/20 10:00: Serum Osmolality 255 L 08/23/20 10:00: TSH 5.591 H 08/23/20 10:20: Stl C.difficile Tox A&B Negative 08/23/20 13:06: Stool Occult Blood Positive H 08/23/20 20:10: Sodium 132, Plasma Sodium 133, Potassium 3.6, Chloride 97, Carbon Dioxide 26.3, Anion Gap 12.3, BUN 13, Creatinine 1.01, Est GFR (Non-Af Amer) 56 L D, BUN/Creatinine Ratio 12.9, Random Glucose 143 H D, Calcium 8.6 08/24/20 01:15: Urine Osmolality 170 08/24/20 07:00: Iron 21 L, TIBC 236 L, Transferrin % Sat 9 L 08/24/20 07:10: WBC 11.6 H, RBC 3.31 L, Hgb 10.0 L, Hct 30.8 L, MCV 93.1, MCH 30.2, MCHC 32.5, RDW 12.6, Plt Count 441, MPV 8.9, Immature Gran % (Auto) 0.50 H, Immature Gran # (Auto) 0.06 H, Neutrophils % 81.6 H, Lymphocytes % 10.0 L, Monocytes % 6.7, Eosinophils % 0.9, Basophils % 0.3, Nucleated RBC % 0.0, Neutrophils # 9.5 H, Lymphocytes # 1.16 L, Monocytes # 0.8, Eosinophils # 0.1, Absolute Basophils 0.0 08/24/20 07:10: PT 45.5 H, INR (Anticoag Therapy) 4.71 H* 08/24/20 07:10: Sodium 131 L, Plasma Sodium 131, Potassium 3.3 L, Chloride 93 L, Carbon Dioxide 28.7, Anion Gap 12.6, BUN 11, Creatinine 1.08, Est GFR (Non-Af Amer) 51 L, BUN/Creatinine Ratio 10.2, Random Glucose 119 H, Calcium 9.4, Calcium Adj for Albumin 10.1, Ferritin 350 H, Total Bilirubin 0.5, AST 38, ALT 36, Alkaline Phosphatase 88, Total Protein 6.9, Albumin 2.7 L, Vitamin B12 1164 H, Folate Greater than 20.0 08/24/20 07:10: Transferrin 199 08/25/20 06:29: PT 45.1 H, INR (Anticoag Therapy) 4.67 H* 08/25/20 06:29: WBC 8.7 D, RBC 2.96 L, Hgb 9.0 L, Hct 27.7 L, MCV 93.6, MCH 30.4, MCHC 32.5, RDW 12.7, Plt Count 396, MPV 8.7, Immature Gran % (Auto) 0.60 H, Immature Gran # (Auto) 0.05 H, Neutrophils % 76.5 H, Lymphocytes % 9.8 L, Monocytes % 8.8, Eosinophils % 3.5 H, Basophils % 0.8, Nucleated RBC % 0.0, Neutrophils # 6.7 H, Lymphocytes # 0.86 L, Monocytes # 0.8, Eosinophils # 0.3, Absolute Basophils 0.1 08/25/20 06:29: Sodium 134, Plasma Sodium 134, Potassium 3.6, Chloride 100, Carbon Dioxide 26.9, Anion Gap 10.7, BUN 6, Creatinine 0.80, Est GFR (Non-Af Amer) 73 D, BUN/Creatinine Ratio 7.5 L, Random Glucose 106, Calcium 8.7 08/26/20 06:45: WBC 7.4, RBC 2.95 L, Hgb 8.9 L, Hct 27.4 L, MCV 92.9, MCH 30.2, MCHC 32.5, RDW 12.8, Plt Count 385, MPV 8.4, Immature Gran % (Auto) 0.40, Immature Gran # (Auto) 0.03, Neutrophils % 73.3, Lymphocytes % 12.2 L, Monocytes % 8.0, Eosinophils % 5.3 H, Basophils % 0.8, Nucleated RBC % 0.0, Neutrophils # 5.4, Lymphocytes # 0.90 L, Monocytes # 0.6, Eosinophils # 0.4, Absolute Basophils 0.1 08/26/20 06:45: PT 26.0 H, INR (Anticoag Therapy) 2.62 H 08/26/20 06:45: Sodium 135, Plasma Sodium 135, Potassium 3.5, Chloride 101, Carbon Dioxide 25.9, Anion Gap 11.6, BUN 5, Creatinine 0.93, Est GFR (Non-Af Amer) 61, BUN/Creatinine Ratio 5.4 L, Random Glucose 102, Calcium 8.6 08/26/20 06:45: Lactate Dehydrogenase 246 H, Creatine Kinase 29 08/27/20 06:26: PT 15.7 H, INR (Anticoag Therapy) 1.54 H Discharge Location: Home Disposition: Home self-care Condition: Good Face to Face Encounter completed per CMS Guidelines: No Discharge Activity: Activity as tolerated Discharge Diet: [facility] soft Referrals: Matheus Walters MD [Primary Care Provider] - Problem Oriented Discharge Instructions to Patient/Family: Colitis Additional Patient Instructions (free text): [facility] Orthopedic office rescheduled for SundayAugust 31 at 1pm for Right Shoulder. Prescriptions (Any new or edited meds): Ciprofloxacin HCl [Cipro] 500 mg PO BID 5 Days tablet metroNIDAZOLE [Metronidazole] 500 mg PO BID 5 Days #20 tab Transmission Status: Pending to [facility] #[id number] Complete Home Medications List: Complete Home Medication List: Cholecalciferol [Vitamin D] 600 units PO DAILY 10/11/12 Multivitamins [Multivitamin Betty] 1 cap PO DAILY 10/11/12 [place]-3/Dha/Epa/Fish Oil [Fish Oil Dr 500 mg Softgel] 4,000 mg PO DAILY 10/11/12 Ubidecarenone [Co Q-10] 100 mg PO DAILY 10/11/12 Ascorbic Acid [Vitamin C] 1,000 mg PO DAILY 10/25/12 Calcium Carbonate [Tums] 1,125 mg PO DAILY 08/08/17 Nitroglycerin 0.4 mg SL .Q 5MIN PRN,X3ONLY PRN 08/08/17 polyethylene glycol 3350 17 gram/dose oral powder 17 g PO DAILY #119 g 11/06/18 Wheat Dextrin [Benefiber] 1 ea PO PRN PRN 11/29/19 losartan 50 mg tablet 50 mg PO DAILY #90 tab 03/18/20 atorvastatin 40 mg tablet 40 mg PO HS #90 tab 06/16/20 Synthroid 75 mcg tablet 75 mcg PO DAILY #90 tab NS 06/17/20 Warfarin Sodium [Coumadin] 5 mg PO DAILY 08/09/20 HYDROcodone/ACETAMINOPHEN [[place] 5-325] 1 - 2 ea PO Q4H PRN #50 tab 08/10/20 Sennosides/Docusate Sodium [Senokot-S] 2 tab PO HS #60 tab 08/10/20 docusate sodium 100 mg tablet 100 mg PO QID #30 tab 08/13/20 cefdinir 300 mg capsule 300 mg PO BID 5 Days #10 cap 08/20/20 Ciprofloxacin HCl [Cipro] 500 mg PO BID 5 Days tablet 08/27/20 metroNIDAZOLE [Metronidazole] 500 mg PO BID 5 Days #20 tab 08/27/20 Forms: Patient Portal Registration
--- NOTE | 2020-08-27 13:25 | ANES ---
Post Anesthesia Assessment - Vital Signs Vitals: Last Vital Signs Temp 36.1 C 08/27/20 13:07 Pulse 82 08/27/20 13:07 Resp 16 08/27/20 13:07 BP 125/68 08/27/20 13:07 Pulse Ox 99 08/27/20 13:07 Airway Patency: Normal - Mental Status Level Of Consciousness: Awake, Alert, Appropriate - Pain Level Pain Score: 0 - N/V Assessment Nausea/Vomiting Presence: None Dehydration:: No
--- NOTE | 2020-08-27 13:28 | OR ---
Operative Report - Dictated Report Narrative: OPERATIVE REPORT DATE OF OPERATION: 08/27/2020 PREOPERATIVE DIAGNOSIS: Abdominal pain. Rectal bleeding. Abnormal CT scan POSTOPERATIVE DIAGNOSIS: Area of colitis at 30-35 cm. Diverticulosis. Solitary rectal erosion OPERATION: Colonoscopy with biopsy SURGEON: Cheryl Drpaer MD ANESTHESIA: DUSTIN Kate CRNA INDICATIONS FOR PROCEDURE: The patient is an 85-year-old female admitted through the emergency room with abdominal pain and rectal bleeding. She had had a right shoulder operation and was on hydrocodone. She became very constipated. CT scan revealed questionable inflammation adjacent to the colon with air-fluid levels. She has improved clinically and is brought for exam FINDINGS: Small healed rectal ulceration. Short stretch of inflammation from 30 to 35 cm. Diverticulosis. Very capacious redundant colon otherwise normal exam to the cecum NARRATIVE OF PROCEDURE: The patient was identified in the holding area, and prior to the administration of anesthetic, a multidisciplinary timeout was observed. With the patient in the left lateral position and after the administration of intravenous sedation, the perineum was inspected. There was no evidence of pilonidal disease or skin breakdown. The external appearance of the anus was normal. Sphincter tone was good. The flexible fiberoptic colonoscope was inserted into the rectum which was insufflated with air. The rectal mucosa and submucosal vascular pattern appeared normal, the prep was seen to be complete. The scope was advanced through the sigmoid colon, up the descending colon, and around the splenic flexure where the triangular haustral architecture of the transverse colon was seen. The scope was advanced across the transverse colon, around the hepatic flexure to the cecum, where the confluence of tenia and the ileocecal valve were identified. The mucosa at this level appeared normal. The scope was then slowly withdrawn in a circular fashion so that all aspects of colonic mucosa were inspected. The colon was []. The haustral architecture appeared well preserved throughout with no evidence of external compression. The mucosa and submucosal vascular pattern appeared normal, specifically there was no gross evidence to suggest colitis or inflammat ory bowel disease and no AV malformations were seen. []. No polyps were encountered. The scope was gradually withdrawn to the level of the rectum. As much insufflated air as possible was removed. The scope was withdrawn from the patient and the procedure terminated. The patient tolerated the anesthetic and procedure well without complication and was transferred back to the the floor awake and stable. Impression: The inflammation is more compatible with diverticulitis than inflammatory bowel disease or ischemic change. Recommendation: The patient's diet could be advanced, she could be discharged home with another 5 days of p.o. Cipro and Flagyl. She should continue the Benefiber and MiraLAX as before admission Reviewed and electronically signed
[2020-08-27 17:23] VITALS: BP 144/78
== END 2020-08-27 17:19 | disposition home or self-care (01) | DRG 392 ==
LOC: ER 02:41 → MS 08:10
PROVIDERS: ADMIT Internal Medicine; ATTEND Internal Medicine
DX: E87.1 Hypo-osmolality and hyponatremia; K52.89 Other specified noninfective gastroenteritis and colitis; K62.6 Ulcer of anus and rectum; D50.9 Iron deficiency anemia, unspecified; I25.10 Atherosclerotic heart disease of native coronary artery without angina pectoris; Z86.718 Personal history of other venous thrombosis and embolism; K56.7 Ileus, unspecified; E78.00 Pure hypercholesterolemia, unspecified; E03.9 Hypothyroidism, unspecified; K57.92 Diverticulitis of intestine, part unspecified, without perforation or abscess without bleeding; I10 Essential (primary) hypertension

== ENCOUNTER 2020-09-11 15:07 | Inpatient (IN) ==
[2020-09-11] MEDS ORDERED: NORMAL SALINE 1,000 ML IV ONE ×2 (15:11→18:33)
[2020-09-11] MEDS ORDERED: DIATRIZOATE MEGLUMINE, SODIUM 30 ML BTL PO ONE (15:28)
[2020-09-11 15:33] LABS: Hematocrit 31.1 % (37.0-47.0); Hemoglobin 9.6 gm/dL (12.5-16.0); Mean Cell Volume 96.3 fl (78-100); Mean Corpuscular Hemoglobin 29.7 pg (27-31); Mean Corpuscular Hgb Conc 30.9 g/dl (32-36); Mean Platelet Volume 8.2 fl (8-12.5); Neutrophil # 5.5 K/mm3 (1.3-6.0); Neutrophil % 72.6 % (42-75.0); Platelet Count 296 K/mm3 (150-450); Red Blood Count 3.23 M/mm3 (4.2-5.4); Red Cell Distribution Width 13.1 % (11.5-14.0); White Blood Count 7.6 K/mm3 (4.0-10.5)
[2020-09-11] MEDS ORDERED: ACETAMINOPHEN 1,000 MG/100 ML BTL IV ONE (15:34)
--- NOTE | 2020-09-11 15:34 | ERNOTE ---
Abdominal HPI - Narrative Date of Service: 09/11/20 - General Chief Complaint: Abdominal Pain Time Seen by Provider: 09/11/20 15:08 Source: patient Exam Limitations: no limitations - Immun/Allergies/Home Medications Immunizatons: IMMUNIZATION HX Immunizations Up to Date Yes History of Influenza Vaccine No Hx Pneumococcal Vaccination No Allergies/Adverse Reactions: Allergies diclofenac Allergy (Mild, Verified 09/11/20 15:09) Other dizziness ceftriaxone [From Rocephin] Allergy (Unknown, Verified 09/11/20 15:09) shaky, dizziness ciprofloxacin [From Cipro] Allergy (Unknown, Verified 09/11/20 15:09) unknown pass out ciprofloxacin HCl [From Cipro] Allergy (Unknown, Verified 09/11/20 15:09) unknown pass out Iodinated Contrast Media Allergy (Unknown, Verified 09/11/20 15:09) unknown Sulfa (Sulfonamide Antibiotics) [Sulfa(Sulfonamide Antibiotics)] Allergy (Unknown, Verified 09/11/20 15:09) unknown sulfamethoxazole [From Bactrim] Allergy (Unknown, Verified 09/11/20 15:09) unknown trimethoprim [From Bactrim] Allergy (Unknown, Verified 09/11/20 15:09) unknown valacyclovir [From Valtrex] Allergy (Unknown, Verified 09/11/20 15:09) RASH guaifenesin [From Mucinex] Adverse Reaction (Intermediate, Verified 09/11/20 15:09) dizzy, stomach pain, diarrhea Home Medications: HOME MEDICATIONS Cholecalciferol [Vitamin D] 600 units PO DAILY 10/11/12 [Last Taken 08/08/17] Multivitamins [Multivitamin Betty] 1 cap PO DAILY 10/11/12 [Last Taken 08/08/17] [place]-3/Dha/Epa/Fish Oil [Fish Oil Dr 500 mg Softgel] 4,000 mg PO DAILY 10/11/12 [Last Taken 08/08/17] Ubidecarenone [Co Q-10] 100 mg PO DAILY 10/11/12 [Last Taken 08/08/17] Ascorbic Acid [Vitamin C] 1,000 mg PO DAILY 10/25/12 [Last Taken 08/08/17] Calcium Carbonate [Tums] 1,125 mg PO DAILY 08/08/17 [Last Taken 08/08/17] Nitroglycerin 0.4 mg SL .Q 5MIN PRN,X3ONLY PRN 08/08/17 [Last Taken Unknown] polyethylene glycol 3350 17 gram/dose oral powder 17 g PO DAILY #119 g 11/06/18 [Last Taken Unknown] Wheat Dextrin [Benefiber] 1 ea PO PRN PRN 11/29/19 [Last Taken Unknown] losartan 50 mg tablet 50 mg PO DAILY #90 tab 03/18/20 [Last Taken Unknown] atorvastatin 40 mg tablet 40 mg PO HS #90 tab 06/16/20 [Last Taken Unknown] Synthroid 75 mcg tablet 75 mcg PO DAILY #90 tab NS 06/17/20 [Last Taken Unknown] Warfarin Sodium [Coumadin] 5 mg PO DAILY 08/09/20 [Last Taken 08/03/20 07:00] Sennosides/Docusate Sodium [Senokot-S] 2 tab PO HS #60 tab 08/10/20 [Last Taken Unknown] docusate sodium 100 mg tablet 100 mg PO QID #30 tab 08/13/20 [Last Taken Unknown] acetaminophen 325 mg tablet 325 mg PO Q6H PRN 08/31/20 [Last Taken Unknown] tramadol 100 mg tablet 100 mg PO Q6H PRN #42 tab 08/31/20 [Last Taken Unknown] - History of Present Illness Narrative: Patient presents to the ED for abdominal pain. She relates that she was seen here yesterday. I have reviewed that work up. She relates that she was on the commode for 2 and a half hours yesterday and as she sat there her abdominal pain worsened. It has continued since then. Moving around her abdomen and feels it in her back. No vomiting. Nothing specifically makes it better or worse. Pain waxes and wanes but is constant. Can be severe but then get better and worsens. She feels this into her back and across her back like a band Timing: constant, other - fluctuating intensity Quality: other - can be severe, other times mild. right now moderate Activities at Onset: none Modifying Factors - (Improves): Present: other - nothing Modifying Factors - (Worsens): Present: other - nothing Associated Symptoms: Absent: chest pain, diarrhea-gross blood, diarrhea-mucous, fever/chills, shortness of breath, swelling/mass in abdomen Prior Abdominal Problems: Present: similar symptoms Prior Treatment: Present: recently seen Review of Systems - Review of Systems Constitutional: Absent: fever EYE: Present: no symptoms reported ENT: Absent: sore throat Respiratory: Absent: shortness of breath Cardiology: Absent: chest pain Gastrointestinal/Abdominal: Present: See HPI Genitourinary: Absent: dysuria Neurological: Absent: weakness All Other Systems: All systems neg except as marked Medical History (Last Reviewed 09/11/20 @ 15:33 by Fernando Pandey MD) COVID-19 vaccine administered (Acute) Seasonal allergic rhinitis (Acute) Encounter for pessary maintenance (Acute) Patient without complaints Pessary cleaned and replaced No evidence of vaginal erosion Has received influenza vaccination in current influenza season (Acute) Onset Date: 12/2017 Osteopenia (Chronic) Contusion, knee and lower leg (Acute) Vaginal bleeding (Acute) Fall (Acute) Nasal fracture (Acute) reduced Facial laceration (Acute) healed Arm laceration (Acute) Hematoma (Chronic) barely visible CAD (coronary artery disease) (Chronic) s/p JAH in 2010 Anemia (Acute) Contusion (Acute) Hyperlipidemia (Chronic) Hypothyroidism (Chronic) Pain (Acute) Thoracic outlet syndrome (Acute) Syncope (Resolved) Constipation (Acute) Urinary tract infection (Suspected) Nausea and vomiting in adult (Acute) Weakness generalized (Acute) Constipation by delayed colonic transit (Resolved) Improved DVT (deep venous thrombosis) (Chronic) History of recurrent DVT Skin tear of hand without complication (Acute) Hemorrhoid (Acute) Bleeding from wound (Acute) Hyponatremia (Resolved) Feeling unwell (Acute) Hypertension (Chronic) Arthropathy of right shoulder Adnexal mass Onset Date: ~2012 Arthritis Onset Date: Unknown Coronary artery disease Onset Date: ~2010 status post Promus 3.0 x 23 mm drug-eluting stent to the L[place] [address] [place] in [place], [place] Essential hypertension Onset Date: ~2013 Hypercholesteremia Onset Date: Unknown Hyperlipidemia Onset Date: Unknown Mitral regurgitation Onset Date: Unknown Shoulder impingement Onset Date: ~2012 Splenic artery aneurysm Onset Date: Unknown Uterovaginal prolapse Onset Date: ~2016 Aneurysm Onset Date: Unknown cerebral Biceps tendon rupture Onset Date: Unknown DVT (deep venous thrombosis) Onset Date: ~2016 Lumbar spine strain Onset Date: ~2012 Rotator cuff rupture Onset Date: ~2012 Surgical History: Surgical History (Last Reviewed 09/11/20 @ 15:33 by Fernando Pandey MD) H/O shoulder replacement Onset Date: ~08/09/20 Right reverse total shoulder arthroplasty. Dr. Love History of shoulder surgery Onset Date: ~08/09/20 Right H/O coronary angiogram Onset Date: ~2010 History of colonoscopy Onset Date: ~201108-27-20 History of coronary artery stent placement Onset Date: ~2010 History of dilation and curettage Onset Date: ~2009 History of removal of cyst Onset Date: ~2015 History of surgical removal of skin lesion Onset Date: ~2016 removal of benign tumor from back of neck - Procedure done in [place] while staying there for the winter. Family History: Family History (Last Reviewed 09/11/20 @ 15:33 by Fernando Pandey MD) Mother , age 76, heart disease- bypass Heart disease Father , age 91, heart problems, bypass, [place] Heart disease Myocardial infarction Brother Hx of CABG Social History: (Last Reviewed 09/11/20 @ 15:33 by Fernando Pandey MD) Social History: Marital status: household members: spouse current occupational status: retired Highest level of school completed/degree received: high school graduate Service: No Tobacco: Smoking Status: Former smoker Alcohol: alcohol intake: former Substance Use: substance use type: does not use Dietary Habits: caffeine: No Physical Exam - Physical Exam General Appearance: Present: alert, no apparent distress Head Exam: Present: normal inspection, no evidence of injury Eye Exam: Normal inspection: bilateral, PERRL: bilateral Ears, Nose, Throat: Present: normal ENT inspection Neck: Present: normal inspection Respiratory: Present: no respiratory distress, normal breath sounds, no accessory muscle use, lungs clear Cardiovascular/Chest: Present: regular rate, rhythm Gastrointestinal/Abdominal: Present: normal bowel sounds, soft, other - mild diffuse abdominal tendenress to palpation. No peritoneal signs. No guarding or rebound. Back Exam: Absent: CVA tenderness (R), CVA tenderness (L) Extremity Exam: Present: normal inspection, normal range of motion Neurological Exam: Present: alert, other - generalized weakness noted. No clear acute unilateral focal motor or sensory deficits Skin Exam: Present: normal color, warm/dry Progress - Results and Orders Patient's Lab Results:: I have reviewed the patient's lab results. - Vital Signs Patient's Vital Signs:: I have reviewed the patient's vital signs. Vital Signs: Vital Signs 09/11/20 15:07 Temperature 36.5 C Pulse Rate 103 H Respiratory Rate 16 Blood Pressure 154/64 H O2 Sat by Pulse Oximetry 97 - CT/Ultrasound CT/Ultrasound Narrative: I reviewed the official radiology report for CT abd/pelvis. - Progress/Reassessment Progress Note-Subjective: 09/11/20 19:03 Patient had urinary retention (after urinating still with 400cc in bladder). Hanson placed. CT as noted. It turns out patient has been increasingly weak at home and cannot get out of bed or walk. Son cannot care for her like this and she cannot go home like this. I spoke with Dr Walters who will admit. COVID testing ordered. She has multiple drug allergies and should have IV antibiotics. She had a vague allergy to Rocephin with shaking but has been on Cephalosporins orally so I am going to give a dose of Zosyn and have her observed closely for any reaction. I discussed this with her and she is agreeable as risks outweigh benefits. Departure Clinical Impression: Abdominal pain, Generalized weakness, Failure to thrive, Urinary retention, UTI (urinary tract infection) - Departure Disposition: Still a patient Condition: Fair
[2020-09-11 15:43] LABS: Prothrombin Time (Patient) 35.9 Seconds (9.1-10.7)
[2020-09-11 15:45] LABS: INR 3.67 INR (0.92-1.08)
[2020-09-11 15:46] LABS: Albumin * 2.9 gm/dl (3.4-5.0); Anion Gap 8.1 mmol/L (6.8-13.8); BUN/Creatinine Ratio 13.5 (9.0-21.6); Bilirubin, Total 0.5 mg/dL (0.0-1.1); Ca. Corrected For Albumin 9.9 mg/dL (8.4-10.2); Calcium * 9.3 mg/dL (7.9-10.9); Carbon Dioxide 31.3 mmol/L (24-32.6); Potassium 3.4 mmol/L (3.4-4.6); Total Protein 6.8 gm/dL (6.2-8.2)
[2020-09-11 18:23] LABS: Urine Appearance Cloudy (CLEAR); Urine Color Yellow
[2020-09-11 18:24] LABS: Urine Bilirubin Negative (NEGATIVE)
[2020-09-11 18:25] LABS: Urine Ketone Negative (NEGATIVE)
[2020-09-11 18:26] LABS: Urine Blood 250 /ul (NEGATIVE)
[2020-09-11 18:27] LABS: Urine Protein 15 mg/dL (NEGATIVE); Urine Urobilinogen Normal (NORMAL)
[2020-09-11 18:28] LABS: Urine Nitrite Negative (NEGATIVE); Urine WBC >50 /hpf (0-5)
[2020-09-11 18:29] LABS: Urine Bacteria 3+; Urine RBC >50 /hpf (0-5)
[2020-09-11] MEDS: PIPERACILLIN SODIUM/TAZOBACTAM 3.375 GM in DEXTROSE 5 % IN WATER 100 ML IV SCH ×2 (19:13)
[2020-09-11] MEDS ORDERED: ROSUVASTATIN CALCIUM 10 MG TABLET PO SCH (21:00)
[2020-09-12] MEDS: PIPERACILLIN SODIUM/TAZOBACTAM 3.375 GM in DEXTROSE 5 % IN WATER 100 ML IV SCH ×6 (03:33→19:30)
[2020-09-12 06:33] LABS: INR 3.68 INR (0.92-1.08)
--- NOTE | 2020-09-12 07:14 | HP ---
Chief Complaint - Chief Complaint Date of Service: 09/12/20 Time of Service: 07:04 Chief Complaint: abdominal pain History of Present Illness: Mary Samano is an 85-year-old white female with past medical history significant for acute colitis, constipation, diverticulosis, coronary artery disease, hyperlipidemia, deep vein thrombosis, hypertension, who was admitted on 09/11/2020 because of abdominal pain. 1 day prior to admission the patient was seen in the emergency room for the same complaint and work-up showed moderate stool retention with nonobstructive gas bowel pattern. She had a moderate rectal stool ball. She was given an enema and her stool was disimpacted. She was sent home. Her pain continued and so she went back to our emergency room. She also has low back pain 8/10 that radiates to her abdominal area and at times she would have abdominal pain that radiates down to her back. She is also recently been having increased generalized weakness and having difficulty of getting out of bed. Her son says she cannot take care of her mother like this. A CT scan of her abdomen and pelvis was done which showed- IMPRESSION:No evidence of bowel obstruction. Question peptic ulcer disease. No free air. Nonspecific distended urinary bladder; correlate for urinary retention. Additional findings and comments are as above. An indwelling Hanson catheter was placed and urine was sent for evaluation which showed also a urinary tract infection. She was then admitted for observation and arrangement for placement to [facility] to get stronger before going home. Medical History (Last Reviewed 09/11/20 @ 20:24 by Pema Fisher RN) COVID-19 vaccine administered (Acute) Seasonal allergic rhinitis (Acute) Encounter for pessary maintenance (Acute) Patient without complaints Pessary cleaned and replaced No evidence of vaginal erosion Has received influenza vaccination in current influenza season (Acute) Onset Date: 12/2017 Osteopenia (Chronic) Contusion, knee and lower leg (Acute) Vaginal bleeding (Acute) Fall (Acute) Nasal fracture (Acute) reduced Facial laceration (Acute) healed Arm laceration (Acute) Hematoma (Chronic) barely visible CAD (coronary artery disease) (Chronic) s/p JAH in 2010 Anemia (Acute) Contusion (Acute) Hyperlipidemia (Chronic) Hypothyroidism (Chronic) Pain (Acute) Thoracic outlet syndrome (Acute) Syncope (Resolved) Constipation (Acute) Urinary tract infection (Suspected) Nausea and vomiting in adult (Acute) Weakness generalized (Acute) Constipation by delayed colonic transit (Resolved) Improved DVT (deep venous thrombosis) (Chronic) History of recurrent DVT Skin tear of hand without complication (Acute) Hemorrhoid (Acute) Bleeding from wound (Acute) Hyponatremia (Resolved) Feeling unwell (Acute) Hypertension (Chronic) Arthropathy of right shoulder Adnexal mass Onset Date: ~2012 Arthritis Onset Date: Unknown Coronary artery disease Onset Date: ~2010 status post Promus 3.0 x 23 mm drug-eluting stent to the L[place] [address] Sing[place] in [place] Essential hypertension Onset Date: ~2013 Hypercholesteremia Onset Date: Unknown Hyperlipidemia Onset Date: Unknown Mitral regurgitation Onset Date: Unknown Shoulder impingement Onset Date: ~2012 Splenic artery aneurysm Onset Date: Unknown Uterovaginal prolapse Onset Date: ~2016 Aneurysm Onset Date: Unknown cerebral Biceps tendon rupture Onset Date: Unknown DVT (deep venous thrombosis) Onset Date: ~2016 Lumbar spine strain Onset Date: ~2012 Rotator cuff rupture Onset Date: ~2012 Surgical History: Surgical History (Last Reviewed 09/11/20 @ 20:24 by Pema Fisher RN) H/O shoulder replacement Onset Date: ~08/09/20 Right reverse total shoulder arthroplasty. Dr. Love History of shoulder surgery Onset Date: ~08/09/20 Right H/O coronary angiogram Onset Date: ~2010 History of colonoscopy Onset Date: ~201108-27-20 History of coronary artery stent placement Onset Date: ~2010 History of dilation and curettage Onset Date: ~2009 History of removal of cyst Onset Date: ~2015 History of surgical removal of skin lesion Onset Date: ~2016 removal of benign tumor from back of neck - Procedure done in [place] while staying there for the winter. Family History: Family History (Last Reviewed 09/11/20 @ 20:25 by Pema Fisher RN) Mother , age 76, heart disease- bypass Heart disease Father , age 91, heart problems, bypass, [place] Heart disease Myocardial infarction Brother Hx of CABG Social History: (Last Reviewed 09/11/20 @ 20:25 by Pema Fisher RN) Social History: Marital status: household members: spouse current occupational status: retired Highest level of school completed/degree received: high school graduate Service: No Tobacco: Smoking Status: Former smoker Alcohol: alcohol intake: former Substance Use: substance use type: does not use Dietary Habits: caffeine: No Review Of Systems (GEN) - Review of Systems Generalized/Overall Review: Present: Weakness. Absent: Chills, Fever EENTM: Absent: Blurred Vision Respiratory: Absent: Cough, Shortness of Breath, Orthopnea Cardiac: Absent: Chest Pain, Edema, Palpitations Abdominal: Present: Abdominal Pain, Constipation. Absent: Nausea, Vomiting Genitourinary: Present: Retention. Absent: Urgency, Frequency Musculoskeletal: Present: Back Pain Neurological: Absent: Headache Skin: Absent: Lesions, Rash Misc: All systems neg except as marked Immunizations: IMMUNIZATION HX Immunizations Up to Date Yes History of Influenza Vaccine No Hx Pneumococcal Vaccination No Allergies/Adverse Reactions: Allergies Allergy/AdvReac Type Severity Reaction Status Date / Time diclofenac Allergy Mild Other Verified 09/11/20 15:09 ceftriaxone [From Rocephin] Allergy Unknown shaky, Verified 09/11/20 15:09 dizziness ciprofloxacin [From Cipro] Allergy Unknown unknown Verified 09/11/20 15:09 ciprofloxacin HCl Allergy Unknown unknown Verified 09/11/20 15:09 [From Cipro] Iodinated Contrast Media Allergy Unknown unknown Verified 09/11/20 15:09 Sulfa (Sulfonamide Allergy Unknown unknown Verified 09/11/20 15:09 Antibiotics) [Sulfa(Sulfonamide Antibiotics)] sulfamethoxazole Allergy Unknown unknown Verified 09/11/20 15:09 [From Bactrim] trimethoprim [From Bactrim] Allergy Unknown unknown Verified 09/11/20 15:09 valacyclovir [From Valtrex] Allergy Unknown RASH Verified 09/11/20 15:09 guaifenesin [From Mucinex] AdvReac Intermediate dizzy, Verified 09/11/20 15:09 stomach pain, diarrhea Home Medications: HOME MEDICATIONS Cholecalciferol [Vitamin D] 600 units PO DAILY 10/11/12 [Last Taken 09/11/20] Multivitamins [Multivitamin Betty] 1 cap PO DAILY 10/11/12 [Last Taken 09/11/20] Cabins-3/Dha/Epa/Fish Oil [Fish Oil Dr 500 mg Softgel] 4,000 mg PO DAILY 10/11/12 [Last Taken 09/11/20] Ubidecarenone [Co Q-10] 100 mg PO DAILY 10/11/12 [Last Taken 09/11/20] Ascorbic Acid [Vitamin C] 1,000 mg PO DAILY 10/25/12 [Last Taken 09/11/20] Calcium Carbonate [Tums] 1,125 mg PO DAILY 08/08/17 [Last Taken 09/11/20] Nitroglycerin 0.4 mg SL .Q 5MIN PRN,X3ONLY PRN 08/08/17 [Last Taken Unknown] polyethylene glycol 3350 17 gram/dose oral powder 17 g PO DAILY #119 g 11/06/18 [Last Taken 09/11/20] Wheat Dextrin [Benefiber] 1 ea PO PRN PRN 11/29/19 [Last Taken 09/11/20] losartan 50 mg tablet 50 mg PO DAILY #90 tab 03/18/20 [Last Taken 09/11/20] atorvastatin 40 mg tablet 40 mg PO HS #90 tab 06/16/20 [Last Taken 09/10/20] Synthroid 75 mcg tablet 75 mcg PO DAILY #90 tab NS 06/17/20 [Last Taken 09/11/20] Warfarin Sodium [Coumadin] 5 mg PO DAILY 08/09/20 [Last Taken 09/11/20] Sennosides/Docusate Sodium [Senokot-S] 2 tab PO HS #60 tab 08/10/20 [Last Taken Unknown] docusate sodium 100 mg tablet 100 mg PO QID #30 tab 08/13/20 [Last Taken 09/11/20] acetaminophen 325 mg tablet 325 mg PO Q6H PRN 08/31/20 [Last Taken Unknown] Exam - Exam Vital Signs: Vital Signs - Last Taken Temp 36.4 C 09/12/20 06:45 Pulse 100 09/12/20 06:45 Resp 18 09/12/20 06:45 BP 170/88 H 09/12/20 06:45 Pulse Ox 97 09/12/20 06:45 Constitutional: Present: Alert, Oriented x3, Cooperative, Elderly ENT Exam: Present: hearing grossly normal Eye Exam: bilateral eye: normal inspection, PERRL, EOMI Neck: Present: supple. Absent: lymphadenopathy (R), lymphadenopathy (L) Respiratory: Present: decreased breath sounds, No rales, No wheezing Cardiovascular/Chest: Present: regular rate, rhythm, no JVD, no murmur Abdomen: Present: Normal bowel sounds, soft, nondistended, tender - Right lower quadrant Extremity: Present: no calf tenderness. Absent: lower extremity edema Diagnostic Studies: Abnormal Lab Results 09/11/20 09/11/20 09/11/20 Range/Units 15:27 15:27 15:27 RBC 3.23 L (4.2-5.4) M/mm3 Hgb 9.6 L (12.5-16.0) gm/dL Hct 31.1 L (37.0-47.0) % MCHC 30.9 L (32-36) g/dl Lymphocytes % 14.4 L (20-51) % Eosinophils % 4.5 H (0.0-3.0) % Lymphocytes # 1.09 L (1.5-3.5) k/mm3 PT 35.9 H (9.1-10.7) Seconds INR (Anticoag Therapy) 3.67 H (0.92-1.08) INR Chloride 96 L (97-106) mmol/L Random Glucose 149 H (70-110) mg/dL Albumin 2.9 L (3.4-5.0) gm/dl Urine pH (5.0-7.0) pH Urine Protein (NEGATIVE) mg/dL Urine Blood (NEGATIVE) /ul Ur Leukocyte Esterase (NEGATIVE) /ul Urine RBC (0-5) /hpf Urine WBC (0-5) /hpf Urine Bacteria (NONE) 09/11/20 09/12/20 Range/Units 18:06 06:06 RBC (4.2-5.4) M/mm3 Hgb (12.5-16.0) gm/dL Hct (37.0-47.0) % MCHC (32-36) g/dl Lymphocytes % (20-51) % Eosinophils % (0.0-3.0) % Lymphocytes # (1.5-3.5) k/mm3 PT 36.0 H (9.1-10.7) Seconds INR (Anticoag Therapy) 3.68 H (0.92-1.08) INR Chloride (97-106) mmol/L Random Glucose (70-110) mg/dL Albumin (3.4-5.0) gm/dl Urine pH 8.0 H (5.0-7.0) pH Urine Protein 15 H (NEGATIVE) mg/dL Urine Blood 250 H (NEGATIVE) /ul Ur Leukocyte Esterase 500 H (NEGATIVE) /ul Urine RBC >50 H (0-5) /hpf Urine WBC >50 H (0-5) /hpf Urine Bacteria 3+ H (NONE) Microbiology 09/11/20 18:07 Urine Culture - Preliminary Urine,Catheterized No Growth Laboratory Results WBC 7.6 K/mm3 (4.0-10.5) 09/11/20 15: RBC 3.23 M/mm3 (4.2-5.4) L 09/11/20 15: Hgb 9.6 gm/dL (12.5-16.0) L 09/11/20 15: Hct 31.1 % (37.0-47.0) L 09/11/20 15: MCV 96.3 fl (78-100) 09/11/20 15: MCH 29.7 pg (27-31) 09/11/20 15: MCHC 30.9 g/dl (32-36) L 09/11/20 15: RDW 13.1 % (11.5-14.0) 09/11/20 15: Plt Count 296 K/mm3 (150-450) 09/11/20 15: MPV 8.2 fl (8-12.5) 09/11/20 15: Immature Gran % (Auto) 0.30 % (0.001-0.429) 09/11/20: Immature Gran # (Auto) 0.02 K/mm3 (0.000-0.0310) 09/11/20 15: Neutrophils % 72.6 % (42-75.0) 09/11/20 15: Lymphocytes % 14.4 % (20-51) L 09/11/20 15: Monocytes % 7.7 % (0.0-9) 09/11/20 15: Eosinophils % 4.5 % (0.0-3.0) H 09/11/20 15: Basophils % 0.5 % (0.0-1.0) 09/11/20 15: Nucleated RBC % 0.0 k/mm3 (0-1) 09/11/20 15: Neutrophils # 5.5 K/mm3 (1.3-6.0) 09/11/20 15: Lymphocytes # 1.09 k/mm3 (1.5-3.5) L 09/11/20 15:27 Monocytes # 0.6 k/mm3 (0.0-1.0) 09/11/20 15: Eosinophils # 0.3 k/mm3 (0.0-0.7) 09/11/20 15: Absolute Basophils 0.0 k/mm3 (0.0-0.1) 09/11/20 15:27 PT 36.0 Seconds (9.1-10.7) H 09/12/20 06:06 INR (Anticoag Therapy) 3.68 INR (0.92-1.08) H 09/12/20 06:06 Sodium 132 mmol/L (132-142) 09/11/20 15: Plasma Sodium 133 mmol/L (130-142) 09/11/20 15: Potassium 3.4 mmol/L (3.4-4.6) 09/11/20 15: Chloride 96 mmol/L (97-106) L 09/11/20 15: Carbon Dioxide 31.3 mmol/L (24-32.6) 09/11/20: Anion Gap 8.1 mmol/L (6.8-13.8) 09/11/20 15: BUN 12 mg/dL (3-23) 09/11/20 15: Creatinine 0.89 mg/dL (0.4-1.4) 09/11/20 15: Est GFR (Non-Af Amer) 64 mL/min (60-130) 09/11/20 15: BUN/Creatinine Ratio 13.5 (9.0-21.6) 09/11/20 15: Random Glucose 149 mg/dL (70-110) H 09/11/20 15: Calcium 9.3 mg/dL (7.9-10.9) 09/11/20: Calcium Adj for Albumin 9.9 mg/dL (8.4-10.2) 09/11/20: Total Bilirubin 0.5 mg/dL (0.0-1.1) 09/11/20 15: AST 23 U/L (0-48) 09/11/20 15: ALT 20 U/L (19-67) 09/11/20 15: Alkaline Phosphatase 123 U/L (50-170) 09/11/20 15:27 Total Protein 6.8 gm/dL (6.2-8.2) 09/11/20 15:27 Albumin 2.9 gm/dl (3.4-5.0) L 09/11/20 15:27 Lipase 222 U/L (73-393) 09/11/20 15:27 Urine Color Yellow 09/11/20 18:06 Urine Appearance Cloudy (CLEAR) 09/11/20 18:06 Urine pH 8.0 pH (5.0-7.0) H 09/11/20 18:06 Ur Specific [place] 1.010 SP.GR. (1.005-1.010) 09/11/20 18:06 Urine Protein 15 mg/dL (NEGATIVE) H 09/11/20 18:06 Urine Glucose (UA) Negative mg/dL (NEGATIVE) 09/11/20 18:06 Urine Ketones Negative mg/dL (NEGATIVE) 09/11/20 18:06 Urine Blood 250 /ul (NEGATIVE) H 09/11/20 18:06 Urine Nitrate Negative (NEGATIVE) 09/11/20 18:06 Urine Bilirubin Negative mg/dl (NEGATIVE) 09/11/20 18:06 Urine Urobilinogen Normal EU/dl (NORMAL) 09/11/20 18:06 Ur Leukocyte Esterase 500 /ul (NEGATIVE) H 09/11/20 18:06 Urine RBC >50 /hpf (0-5) H 09/11/20 18:06 Urine WBC >50 /hpf (0-5) H 09/11/20 18:06 Ur Epithelial Cells None seen /hpf (0-5) 09/11/20 18:06 Urine Bacteria 3+ (NONE) H 09/11/20 18:06 Urine Culture Comments Culture to follow 09/11/20 18:06 SARS-CoV-2 (PCR) Not detected (NotDetected) 09/11/20 18:45 Assessment/Plan - Narrative Narrative: Mary was admitted for abdominal pain and urinary retention with UTI. We will continue with her IV antibiotics and get a lumbosacral x-ray. Her urinary retention might possibly be due to a spinal stenosis from her compression fra cture of her lumbar sacral spine. We will plan for MRI of the lumbosacral area once oral contrast has passed out. She may also need a renal ultrasound. We will refer patient to physical therapy. We will coordinate with case management for [facility] placement for physical therapy and getting stronger before going home. We will continue with her MiraLAX, [place]. I do expect her to have more bowel movement of the contrast dye today. If not we may have to do enemas again. - Assessment/Plan (1) Obstipation Problem: Acute (2) Abdominal pain Problem: Acute (3) Urinary retention Problem: Acute (4) UTI (urinary tract infection) Problem: Acute (5) Weakness generalized Problem: Acute (6) Low back pain Problem: Acute Qualifiers: Chronicity: acute Back pain laterality: midline Sciatica presence: without sciatica Qualified Code(s): M54.5 - Low back pain (7) CAD (coronary artery disease) Problem: Chronic Qualifiers: Coronary Disease-Associated Artery/Lesion type: [place] artery [place] vs. transplanted heart: [place] heart Associated angina: without angina Qualified Code(s): I25.10 - Atherosclerotic heart disease of [place] coronary artery without angina pectoris (8) DVT (deep venous thrombosis) Problem: Chronic (9) Hypertension Problem: Chronic Qualifiers: Hypertension type: essential hypertension Qualified Code(s): I10 - Essential (primary) hypertension
[2020-09-12] MEDS ORDERED: NITROGLYCERIN 0.4 MG/TAB BTL SL PRN (07:16)
[2020-09-12] MEDS: PSYLLIUM SEED 1 PACKET PACKET PO SCH (08:21)
[2020-09-12] MEDS: LEVOTHYROXINE SODIUM 75 MCG TABLET PO SCH (08:21)
[2020-09-12] MEDS: CALCIUM CARBONATE 500 MG TAB.CHEW PO SCH (08:21)
[2020-09-12] MEDS: POLYETHYLENE GLYCOL 3350 17 GM PACKET PO SCH (08:21)
[2020-09-12] MEDS: CHOLECALCIFEROL 400 UNIT TABLET PO SCH (08:22)
[2020-09-12] MEDS: ASCORBIC ACID 500 MG TABLET PO SCH (08:23)
[2020-09-12] MEDS ORDERED: LOSARTAN POTASSIUM 50 MG TABLET PO SCH (09:00)
[2020-09-12] MEDS: ACETAMINOPHEN 325 MG TABLET PO PRN (20:23)
[2020-09-12] MEDS: ROSUVASTATIN CALCIUM 20 MG TABLET PO SCH (20:23)
[2020-09-12] MEDS: SENNOSIDES/DOCUSATE SODIUM 1 TAB TABLET PO SCH (20:23)
[2020-09-12] MEDS: LOSARTAN POTASSIUM 50 MG TABLET PO SCH ×2 (21:01→21:02)
[2020-09-13] MEDS: PIPERACILLIN SODIUM/TAZOBACTAM 3.375 GM in DEXTROSE 5 % IN WATER 100 ML IV SCH ×4 (02:43→11:16)
[2020-09-13] MEDS: ACETAMINOPHEN 325 MG TABLET PO PRN ×3 (02:49→19:09)
[2020-09-13] MEDS ORDERED: LABETALOL HCL 5 MG/ML VIAL IV ONE ×2 (03:27→07:21)
[2020-09-13] MEDS: PANTOPRAZOLE SODIUM 20 MG TABLET.DR PO SCH (06:54)
[2020-09-13] MEDS: LEVOTHYROXINE SODIUM 75 MCG TABLET PO SCH (06:54)
[2020-09-13] MEDS: PSYLLIUM SEED 1 PACKET PACKET PO SCH (08:56)
[2020-09-13] MEDS: LOSARTAN POTASSIUM 50 MG TABLET PO SCH ×2 (08:56→21:02)
[2020-09-13] MEDS: POLYETHYLENE GLYCOL 3350 17 GM PACKET PO SCH (08:56)
[2020-09-13] MEDS: CHOLECALCIFEROL 400 UNIT TABLET PO SCH (08:56)
[2020-09-13] MEDS: ASCORBIC ACID 500 MG TABLET PO SCH (08:57)
[2020-09-13] MEDS: CALCIUM CARBONATE 500 MG TAB.CHEW PO SCH (08:57)
--- NOTE | 2020-09-13 11:57 | PN ---
Subjective - Date and Time Seen Date: 09/13/20 Time: 11:51 Subjective Narrative: Her blood pressure has been running high likely secondary to her low back pain which she rates at 8/10. Objective - Review of Systems Generalized/Overall Review: Reports: Weakness. Denies: Chills, Fever EENTM: Denies: Blurred Vision Respiratory: Denies: Cough, Shortness of Breath, Orthopnea Cardiac: Denies: Chest Pain, Edema, Palpitations Abdominal: Reports: Abdominal Pain, Constipation. Denies: Nausea, Vomiting Genitourinary Symptoms: Denies: Urgency, Frequency Musculoskeletal Complaints: Reports: Back Pain Neurological: Denies: Headache Skin: Denies: Lesions, Rash Misc: All systems neg except as marked - Vitals Vitals: Last Vital Signs Temp 36.6 C 09/13/20 10:15 Pulse 84 09/13/20 10:15 Resp 20 09/13/20 10:15 BP 147/79 09/13/20 10:15 Pulse Ox 98 09/13/20 10:15 - Exam Constitutional: Present: Alert, Oriented x3, Cooperative, Elderly ENT Exam: Present: hearing grossly normal Neck: Present: supple. Absent: lymphadenopathy (R), lymphadenopathy (L) Respiratory: Present: decreased breath sounds, No rales, No wheezing Cardiovascular/Chest: Present: regular rate, rhythm, no JVD, no murmur Abdomen: Present: Normal bowel sounds, soft, nontender, nondistended Extremity: Present: no calf tenderness, pedal edema Cauti Physician Documentation - Urinary Catheter Management Urethral ([place]) Date of Insertion: 09/11/20 Time of Insertion: 18:13 Assessment/Plan Plan Narrative: Mary was admitted for generalized weakness, low back pain and abdominal pain for m[facility] placement. Her blood pressure has been running in the 180s over 100s likely due to her low back pain which she rates at 8/10. She says the Tylenol does not touch it. We will start her on tramadol for now. We have been giving labetalol IV for her blood pressures. If pain is controlled and blood pressure is still high we will add another blood pressure medication. We will change also Zosyn to Rocephin since her notation on allergy was just shakiness and dizziness and not really an allergic reaction. We will await for final culture. Her abdominal pain was likely related to her distended bladder as she has urinary retention. I am not sure why she has this she does have a compression fracture of her lumbar vertebra. She will need a lumbar MRI when dye has passed out. We will admit her to inpatient status. - Problems/Diagnosis (1) Obstipation Problem: Acute (2) Abdominal pain Problem: Acute (3) Urinary retention Problem: Acute (4) UTI (urinary tract infection) Problem: Acute (5) Weakness generalized Problem: Acute (6) Low back pain Problem: Acute Qualifiers: Chronicity: acute Back pain laterality: midline Sciatica presence: without sciatica Qualified Code(s): M54.5 - Low back pain (7) CAD (coronary artery disease) Problem: Chronic Qualifiers: Coronary Disease-Associated Artery/Lesion type: [place] artery [place] vs. transplanted heart: [place] heart Associated angina: without angina Qualified Code(s): I25.10 - Atherosclerotic heart disease of [place] coronary artery without angina pectoris (8) DVT (deep venous thrombosis) Problem: Chronic (9) Hypertension Problem: Chronic Qualifiers: Hypertension type: essential hypertension Qualified Code(s): I10 - Essential (primary) hypertension
[2020-09-13] MEDS: SENNOSIDES/DOCUSATE SODIUM 1 TAB TABLET PO SCH (21:02)
[2020-09-13] MEDS: ROSUVASTATIN CALCIUM 20 MG TABLET PO SCH (21:03)
[2020-09-14] MEDS: LEVOTHYROXINE SODIUM 75 MCG TABLET PO SCH (06:52)
[2020-09-14] MEDS: PANTOPRAZOLE SODIUM 20 MG TABLET.DR PO SCH (06:52)
--- NOTE | 2020-09-14 08:17 | PN ---
Subjective - Date and Time Seen Date: 09/14/20 Time: 08:14 Subjective Narrative: still rates her pain as 8/10. BP still elevated. Objective - Review of Systems Generalized/Overall Review: Reports: Weakness. Denies: Chills, Fever EENTM: Denies: Blurred Vision Respiratory: Denies: Cough, Shortness of Breath, Orthopnea Cardiac: Denies: Chest Pain, Edema, Palpitations Abdominal: Reports: Abdominal Pain. Denies: Nausea, Vomiting Genitourinary Symptoms: Reports: Retention. Denies: Urgency, Frequency Musculoskeletal Complaints: Reports: Back Pain Neurological: Denies: Headache Skin: Denies: Lesions, Rash Misc: All systems neg except as marked - Vitals Vitals: Last Vital Signs Temp 36.4 C 09/14/20 06:20 Pulse 95 09/14/20 06:20 Resp 20 09/14/20 06:20 BP 176/87 H 09/14/20 06:20 Pulse Ox 99 09/14/20 06:20 - Exam Constitutional: Present: Alert, Oriented x3, Cooperative ENT Exam: Present: hearing grossly normal Neck: Present: supple. Absent: lymphadenopathy (R), lymphadenopathy (L) Respiratory: Present: decreased breath sounds, No rales, No wheezing Cardiovascular/Chest: Present: regular rate, rhythm, no JVD, no murmur Abdomen: Present: Normal bowel sounds, soft, nontender, nondistended Extremity: Present: no calf tenderness. Absent: lower extremity edema Cauti Physician Documentation - Urinary Catheter Management Urethral ([place]) Date of Insertion: 09/11/20 Time of Insertion: 18:13 Assessment/Plan Plan Narrative: Her elevated blood pressure may still be related to her low back pain from her compression fracture. She has just been getting Tylenol for low back pain and she told me it does not touch it. We will start her on tramadol 50 every 6 hours as needed for pain. We will add Toprol-XL 50 mg p.o. daily to her losartan. I told her to bring her vaccination card to see if he is due for her second shot. She is worried that if she goes to the snf she needs to be isolated for 2 weeks because she has not gotten her second shot yet. Urine culture and sensitivity came back that she is growing E. coli and Enterococcus faecalis. We will discontinue her IV Rocephin and start her on ciprofloxacin IV if does not have a true allergy to it. - Problems/Diagnosis (1) Obstipation Problem: Acute (2) Abdominal pain Problem: Acute (3) Urinary retention Problem: Acute (4) UTI (urinary tract infection) Problem: Acute (5) Weakness generalized Problem: Acute (6) Low back pain Problem: Acute Qualifiers: Chronicity: acute Back pain laterality: midline Sciatica presence: without sciatica Qualified Code(s): M54.5 - Low back pain (7) CAD (coronary artery disease) Problem: Chronic Qualifiers: Coronary Disease-Associated Artery/Lesion type: [place] artery [place] vs. transplanted heart: [place] heart Associated angina: without angina Qualified Code(s): I25.10 - Atherosclerotic heart disease of [place] coronary artery without angina pectoris (8) DVT (deep venous thrombosis) Problem: Chronic (9) Hypertension Problem: Chronic Qualifiers: Hypertension type: essential hypertension Qualified Code(s): I10 - Essential (primary) hypertension
[2020-09-14] MEDS: PSYLLIUM SEED 1 PACKET PACKET PO SCH (08:44)
[2020-09-14] MEDS: ASCORBIC ACID 500 MG TABLET PO SCH (08:45)
[2020-09-14] MEDS: POLYETHYLENE GLYCOL 3350 17 GM PACKET PO SCH (08:45)
[2020-09-14] MEDS: CHOLECALCIFEROL 400 UNIT TABLET PO SCH (08:45)
[2020-09-14] MEDS: LOSARTAN POTASSIUM 50 MG TABLET PO SCH ×2 (08:45→20:21)
[2020-09-14] MEDS: CALCIUM CARBONATE 500 MG TAB.CHEW PO SCH (08:45)
[2020-09-14] MEDS ORDERED: METOPROLOL SUCCINATE 50 MG TABLET.SA PO SCH (09:00)
[2020-09-14] MEDS: traMADol HCL 50 MG TABLET PO PRN ×2 (11:56→17:56)
[2020-09-14] MEDS: ACETAMINOPHEN 325 MG TABLET PO PRN (15:47)
[2020-09-14] MEDS: TAMSULOSIN HCL 0.4 MG CAP.SR.24H PO SCH (17:56)
[2020-09-14] MEDS ORDERED: FOSFOMYCIN TROMETHAMINE 3 GM PACKET PO ONE (18:00)
[2020-09-14] MEDS: ROSUVASTATIN CALCIUM 20 MG TABLET PO SCH (20:21)
[2020-09-14] MEDS: SENNOSIDES/DOCUSATE SODIUM 1 TAB TABLET PO SCH (20:21)
[2020-09-15] MEDS: traMADol HCL 50 MG TABLET PO PRN ×2 (03:40→17:13)
[2020-09-15] MEDS: PANTOPRAZOLE SODIUM 20 MG TABLET.DR PO SCH (06:34)
[2020-09-15] MEDS: LEVOTHYROXINE SODIUM 75 MCG TABLET PO SCH (06:34)
--- NOTE | 2020-09-15 08:38 | DS ---
(1) Obstipation Problem: Acute (2) Abdominal pain Problem: Acute (3) Urinary retention Problem: Resolved (4) UTI (urinary tract infection) Problem: Resolved (5) Weakness generalized Problem: Acute (6) Low back pain Problem: Acute Qualifiers: Chronicity: acute Back pain laterality: midline Sciatica presence: without sciatica Qualified Code(s): M54.5 - Low back pain (7) CAD (coronary artery disease) Problem: Chronic Qualifiers: Coronary Disease-Associated Artery/Lesion type: [place] artery [place] vs. transplanted heart: [place] heart Associated angina: without angina Qualified Code(s): I25.10 - Atherosclerotic heart disease of [place] coronary artery without angina pectoris (8) DVT (deep venous thrombosis) Problem: Chronic (9) Hypertension Problem: Chronic Qualifiers: Hypertension type: essential hypertension Qualified Code(s): I10 - Essential (primary) hypertension Date of Discharge:: 09/15/20 Hospital Course: Mary Samano is an 85-year-old white female with past medical history significant for acute colitis, constipation, diverticulosis, coronary artery dis ease, hyperlipidemia, deep vein thrombosis, hypertension, who was admitted on 09/11/2020 because of abdominal pain and low back pain. 1 day prior to admission the patient was seen in the emergency room for the same complaint and work-up showed moderate stool retention with nonobstructive gas bowel pattern. She had a moderate rectal stool ball. She was given an enema and her stool was disimpacted. She was sent home. Her pain continued and so she went back to our emergency room. She also has low back pain 8/10 that radiates to her abdominal area and at times she would have abdominal pain that radiates down to her back. She is also recently been having increased generalized weakness and having difficulty of getting out of bed. Her son says she cannot take care of her mother like this. A CT scan of her abdomen and pelvis was done which showed- IMPRESSION:No evidence of bowel obstruction. Question peptic ulcer disease. No free air. Nonspecific distended urinary bladder; correlate for urinary retention. Additional findings and comments are as above. An indwelling Hanson catheter was placed and urine was sent for evaluation which showed also a urinary tract infection. She was then admitted for observation and arrangement for placement to correction to get stronger before going home. In the floor the patient was having high blood pressures likely due to her low back pain as well. She was started on Toprol-XL and tramadol as Tylenol was not doing it. She received Zosyn and then Rocephin for her UTI. Her urinary culture and sensitivity grew Enterococcus faecalis and E. coli.. She received fosfomycin 3 g p.o. x1 and the Rocephin was discontinued. She will get her second dose of more than a vaccine when she follows up in 1 week. We will refer her to physical therapy using aqua pool therapy. Her Hanson catheter was removed and she is no longer having urinary retention. Procedures Performed: none Results and Findings: Lab Pending Results 09/11/20 15:27: WBC 7.6, RBC 3.23 L, Hgb 9.6 L, Hct 31.1 L, MCV 96.3, MCH 29.7, MCHC 30.9 L, RDW 13.1, Plt Count 296, MPV 8.2, Immature Gran % (Auto) 0.30, Immature Gran # (Auto) 0.02, Neutrophils % 72.6, Lymphocytes % 14.4 L, Monocytes % 7.7, Eosinophils % 4.5 H, Basophils % 0.5, Nucleated RBC % 0.0, Neutrophils # 5.5, Lymphocytes # 1.09 L, Monocytes # 0.6, Eosinophils # 0.3, Absolute Basophils 0.0 09/11/20 15:27: PT 35.9 H, INR (Anticoag Therapy) 3.67 H 09/11/20 15:27: Sodium 132, Plasma Sodium 133, Potassium 3.4, Chloride 96 L, Carbon Dioxide 31.3, Anion Gap 8.1, BUN 12, Creatinine 0.89, Est GFR (Non-Af Amer) 64, BUN/Creatinine Ratio 13.5, Random Glucose 149 H, Calcium 9.3, Calcium Adj for Albumin 9.9, Total Bilirubin 0.5, AST 23, ALT 20, Alkaline Phosphatase 123, Total Protein 6.8, Albumin 2.9 L, Lipase 222 09/11/20 18:06: Urine Color Yellow, Urine Appearance Cloudy, Urine pH 8.0 H, Ur Specific [place] 1.010, Urine Protein 15 H, Urine Glucose (UA) Negative, Urine Ketones Negative, Urine Blood 250 H, Urine Nitrate Negative, Urine Bilirubin Ne gative, Urine Urobilinogen Normal, Ur Leukocyte Esterase 500 H, Urine RBC >50 H, Urine WBC >50 H, Ur Epithelial Cells None seen, Urine Bacteria 3+ H, Urine Culture Comments Culture to follow 09/11/20 18:45: SARS-CoV-2 (PCR) Not detected 09/12/20 06:06: PT 36.0 H, INR (Anticoag Therapy) 3.68 H Discharge Location: Home Disposition: Home self-care Condition: Stable Discharge Activity: Activity as tolerated Discharge Diet: Low salt Alf Therapy: Physical Therapy - Aqua pool rehab Referrals: Matheus Walters MD [Primary Care Provider] - Additional Patient Instructions (free text): Follow up appointment with Dr Walters on September 23 at 3:00pm. [facility] Physical therapy and Rehab pool therapy, they will call you with appointme nt time. Prescriptions (Any new or edited meds): Tamsulosin HCl [Flomax] 0.4 mg PO DAILY@1800 #30 cap.sr.24h Transmission Status: Pending to [facility] #[id number] Losartan Potassium 50 mg PO BID #90 tab Transmission Status: Pending to [facility] #[id number] Pantoprazole Sodium [Protonix] 20 mg PO DAILY@0700 #30 tablet.dr Transmission Status: Pending to [facility] #[id number] Metoprolol Succinate [Toprol Xl] 100 mg PO DAILY #30 tablet.sa Transmission Status: Pending to [facility] #[id number] traMADol HCL [Ultram] 50 mg PO Q6H PRN #30 tab PRN Reason: Pain Transmission Status: Received by [facility] #[id number] Complete Home Medications List: Complete Home Medication List: Cholecalciferol [Vitamin D] 600 units PO DAILY 10/11/12 Multivitamins [Multivitamin Betty] 1 cap PO DAILY 10/11/12 [place]-3/Dha/Epa/Fish Oil [Fish Oil Dr 500 mg Softgel] 4,000 mg PO DAILY 10/11/12 Ubidecarenone [Co Q-10] 100 mg PO DAILY 10/11/12 Ascorbic Acid [Vitamin C] 1,000 mg PO DAILY 10/25/12 Calcium Carbonate [Tums] 1,125 mg PO DAILY 08/08/17 Nitroglycerin 0.4 mg SL .Q 5MIN PRN,X3ONLY PRN 08/08/17 polyethylene glycol 3350 17 gram/dose oral powder 17 g PO DAILY #119 g 11/06/18 Wheat Dextrin [Benefiber] 1 ea PO PRN PRN 11/29/19 atorvastatin 40 mg tablet 40 mg PO HS #90 tab 06/16/20 Synthroid 75 mcg tablet 75 mcg PO DAILY #90 tab NS 06/17/20 Warfarin Sodium [Coumadin] 5 mg PO DAILY 08/09/20 Sennosides/Docusate Sodium [Senokot-S] 2 tab PO HS #60 tab 08/10/20 docusate sodium 100 mg tablet 100 mg PO QID #30 tab 08/13/20 acetaminophen 325 mg tablet 325 mg PO Q6H PRN 08/31/20 Losartan Potassium 50 mg PO BID #90 tab 09/15/20 Metoprolol Succinate [Toprol Xl] 100 mg PO DAILY #30 tablet.sa 09/15/20 Pantoprazole Sodium [Protonix] 20 mg PO DAILY@0700 #30 tablet.dr 09/15/20 Tamsulosin HCl [Flomax] 0.4 mg PO DAILY@1800 #30 cap.sr.24h 09/15/20 traMADol HCL [Ultram] 50 mg PO Q6H PRN #30 tab 09/15/20 Amb Orders for Discharge: Prothrombin Time Time Frame: 09/20/20, Facility: [facility], Location: Laboratory Forms: Patient Portal Registration
[2020-09-15] MEDS: LOSARTAN POTASSIUM 50 MG TABLET PO SCH ×2 (09:21→20:24)
[2020-09-15] MEDS: PSYLLIUM SEED 1 PACKET PACKET PO SCH (09:21)
[2020-09-15] MEDS: POLYETHYLENE GLYCOL 3350 17 GM PACKET PO SCH (09:21)
[2020-09-15] MEDS: ASCORBIC ACID 500 MG TABLET PO SCH (09:22)
[2020-09-15] MEDS: ACETAMINOPHEN 325 MG TABLET PO PRN (09:23)
[2020-09-15] MEDS: CHOLECALCIFEROL 400 UNIT TABLET PO SCH (09:23)
[2020-09-15] MEDS: CALCIUM CARBONATE 500 MG TAB.CHEW PO SCH (09:23)
[2020-09-15] MEDS: METOPROLOL SUCCINATE 100 MG TABLET.SA PO SCH (09:26)
[2020-09-15 12:19] LABS: Hematocrit 32.5 % (37.0-47.0); Mean Cell Volume 95.3 fl (78-100); Mean Corpuscular Hemoglobin 29.3 pg (27-31); Mean Corpuscular Hgb Conc 30.8 g/dl (32-36); Mean Platelet Volume 8.9 fl (8-12.5); Neutrophil # 5.5 K/mm3 (1.3-6.0); Platelet Count 355 K/mm3 (150-450); Red Blood Count 3.41 M/mm3 (4.2-5.4); White Blood Count 7.3 K/mm3 (4.0-10.5)
[2020-09-15 12:22] LABS: Anion Gap 10.8 mmol/L (6.8-13.8); BUN/Creatinine Ratio 14.3 (9.0-21.6); Calcium * 9.6 mg/dL (7.9-10.9); Carbon Dioxide 30.4 mmol/L (24-32.6); Potassium 3.2 mmol/L (3.4-4.6)
[2020-09-15 12:25] LABS: INR 1.37 INR (0.92-1.08)
[2020-09-15] MEDS ORDERED: POTASSIUM CHLORIDE 10 MEQ TABLET.SA PO ONE (12:38)
[2020-09-15] MEDS: WARFARIN SODIUM 5 MG TABLET PO SCH (17:17)
[2020-09-15] MEDS: TAMSULOSIN HCL 0.4 MG CAP.SR.24H PO SCH (17:17)
[2020-09-15] MEDS: ROSUVASTATIN CALCIUM 20 MG TABLET PO SCH (20:25)
[2020-09-15] MEDS: SENNOSIDES/DOCUSATE SODIUM 1 TAB TABLET PO SCH (20:25)
[2020-09-16] MEDS: PANTOPRAZOLE SODIUM 20 MG TABLET.DR PO SCH (07:07)
[2020-09-16] MEDS: LEVOTHYROXINE SODIUM 75 MCG TABLET PO SCH (07:08)
--- NOTE | 2020-09-16 08:32 | PN ---
Progess Note - Interim Date: 09/16/20 Time: 08:31 Narrative: 09/16/20 08:31 patient has LBP is better 10/09. i did discuss her about risks and benefits of kyphoplasty . She prefers to defer that for nowand I agree with her.
[2020-09-16] MEDS: PSYLLIUM SEED 1 PACKET PACKET PO SCH (09:55)
[2020-09-16] MEDS: POLYETHYLENE GLYCOL 3350 17 GM PACKET PO SCH ×2 (09:55→10:13)
[2020-09-16] MEDS: CHOLECALCIFEROL 400 UNIT TABLET PO SCH (09:55)
[2020-09-16] MEDS: CALCIUM CARBONATE 500 MG TAB.CHEW PO SCH (09:55)
[2020-09-16] MEDS: METOPROLOL SUCCINATE 100 MG TABLET.SA PO SCH (09:56)
[2020-09-16] MEDS: LOSARTAN POTASSIUM 50 MG TABLET PO SCH ×2 (09:56→21:17)
[2020-09-16] MEDS: ASCORBIC ACID 500 MG TABLET PO SCH (09:56)
[2020-09-16] MEDS: traMADol HCL 50 MG TABLET PO PRN ×2 (10:18→19:35)
--- NOTE | 2020-09-16 15:17 | PN ---
Subjective - Date and Time Seen Date: 09/16/20 Time: 15:02 Subjective Narrative: patient has LBP is better 7/10. i did discuss her about risks and benefits of kyphoplasty . She prefers to defer that for nowand I agree with her. Objective - Review of Systems Generalized/Overall Review: Reports: Weakness. Denies: Chills, Fever EENTM: Denies: Blurred Vision Respiratory: Denies: Cough, Shortness of Breath, Wheezing Cardiac: Denies: Chest Pain, Edema, Palpitations Abdominal: Denies: Nausea, Vomiting, Abdominal Pain Genitourinary Symptoms: Denies: Urgency, Frequency Musculoskeletal Complaints: Reports: Back Pain Neurological: Denies: Headache Skin: Denies: Lesions, Rash Misc: All systems neg except as marked - Vitals Vitals: Last Vital Signs Temp 36.5 C 09/16/20 10:13 Pulse 73 09/16/20 10:13 Resp 18 09/16/20 10:13 BP 180/93 H 09/16/20 10:13 Pulse Ox 98 09/16/20 10:13 - Exam Constitutional: Present: Alert, Oriented x3, Cooperative, Elderly ENT Exam: Present: hearing grossly normal Neck: Present: supple. Absent: lymphadenopathy (R), lymphadenopathy (L) Respiratory: Present: lungs clear, No rales, No wheezing Cardiovascular/Chest: Present: regular rate, rhythm, no JVD, no murmur Abdomen: Present: Normal bowel sounds, soft, nontender, obese Extremity: Present: no calf tenderness, pedal edema Cauti Physician Documentation - Urinary Catheter Management Urethral (Hanson) Date of Insertion: 09/11/20 Time of Insertion: 18:13 Date of Removal: 09/14/20 Time of Removal: 09:00 Assessment/Plan Plan Narrative: Mary was admitted for UTI, low back pain and abdominal pain. She does have a compression fracture of L1 3 and 4 more severe at L3. She will does not want kyphoplasty.. We will continue with her pain medications but may have to put her on a long-acting 1 for now as she still rates her pain at 7/10 with tramadol. This could also be one reason why her blood pressure is high at times. She is just awaiting half-way placement. - Problems/Diagnosis (1) Obstipation Problem: Acute (2) Abdominal pain Problem: Acute (3) Urinary retention Problem: Resolved (4) UTI (urinary tract infection) Problem: Resolved (5) Weakness generalized Problem: Acute (6) Low back pain Problem: Acute Qualifiers: Chronicity: acute Back pain laterality: midline Sciatica presence: without sciatica Qualified Code(s): M54.5 - Low back pain (7) CAD (coronary artery disease) Problem: Chronic Qualifiers: Coronary Disease-Associated Artery/Lesion type: [place] artery [place] vs. transplanted heart: [place] heart Associated angina: without angina Qualified Code(s): I25.10 - Atherosclerotic heart disease of [place] coronary artery without angina pectoris (8) DVT (deep venous thrombosis) Problem: Chronic (9) Hypertension Problem: Chronic Qualifiers: Hypertension type: essential hypertension Qualified Code(s): I10 - Essential (primary) hypertension
[2020-09-16] MEDS: ACETAMINOPHEN 325 MG TABLET PO PRN (15:46)
[2020-09-16] MEDS: WARFARIN SODIUM 5 MG TABLET PO SCH (17:33)
[2020-09-16] MEDS: TAMSULOSIN HCL 0.4 MG CAP.SR.24H PO SCH (17:33)
[2020-09-16] MEDS: SENNOSIDES/DOCUSATE SODIUM 1 TAB TABLET PO SCH (21:18)
[2020-09-16] MEDS: ROSUVASTATIN CALCIUM 20 MG TABLET PO SCH (21:19)
[2020-09-16] MEDS: CALCIUM CARBONATE/VITAMIN D3 1 TAB TABLET PO SCH (21:22)
[2020-09-17] MEDS: PANTOPRAZOLE SODIUM 20 MG TABLET.DR PO SCH (06:52)
[2020-09-17] MEDS: LEVOTHYROXINE SODIUM 75 MCG TABLET PO SCH (06:52)
[2020-09-17] MEDS: LOSARTAN POTASSIUM 50 MG TABLET PO SCH (08:40)
[2020-09-17] MEDS: PSYLLIUM SEED 1 PACKET PACKET PO SCH (08:40)
[2020-09-17] MEDS: ASCORBIC ACID 500 MG TABLET PO SCH (08:40)
[2020-09-17] MEDS: POLYETHYLENE GLYCOL 3350 17 GM PACKET PO SCH (08:40)
[2020-09-17] MEDS: METOPROLOL SUCCINATE 100 MG TABLET.SA PO SCH (08:40)
[2020-09-17] MEDS: CHOLECALCIFEROL 400 UNIT TABLET PO SCH (08:41)
[2020-09-17] MEDS: CALCIUM CARBONATE/VITAMIN D3 1 TAB TABLET PO SCH (08:44)
--- NOTE | 2020-09-17 08:53 | PN ---
Progess Note - Interim Date: 09/17/20 Time: 08:52 Narrative: 09/17/20 08:52 C/O pain 01/09. got Oxycontin for this. awaiting NH placement.
--- NOTE | 2020-09-17 10:18 | DS ---
(1) Low back pain Problem: Acute Qualifiers: Chronicity: acute Back pain laterality: midline Sciatica presence: without sciatica Qualified Code(s): M54.5 - Low back pain (2) Obstipation Problem: Resolved (3) Abdominal pain Problem: Resolved (4) Urinary retention Problem: Resolved (5) UTI (urinary tract infection) Problem: Resolved (6) Weakness generalized Problem: Chronic (7) CAD (coronary artery disease) Problem: Chronic Qualifiers: Coronary Disease-Associated Artery/Lesion type: [place] artery [place] vs. transplanted heart: [place] heart Associated angina: without angina Qualified Code(s): I25.10 - Atherosclerotic heart disease of [place] coronary artery without angina pectoris (8) DVT (deep venous thrombosis) Problem: Chronic (9) Hypertension Problem: Chronic Qualifiers: Hypertension type: essential hypertension Qualified Code(s): I10 - Essential (primary) hypertension Date of Discharge:: 09/17/20 Hospital Course: Mary Samano is an 85-year-old white female with past medical history significant for acute colitis, constipation, diverticulosis, coronary artery disease, hyperlipidemia, deep vein thrombosis, hypertension, who was admitted on 09/11/2020 because of abdominal pain and low back pain. 1 day prior to admission the patient was seen in the emergency room for the same complaint and work-up showed moderate stool retention with nonobstructive gas bowel pattern. She had a moderate rectal stool ball. She was given an enema and her stool was dis impacted. She was sent home. Her pain continued and so she went back to our emergency room. She also has low back pain 8/10 that radiates to her abdominal area and at times she would have abdominal pain that radiates down to her back. She is also recently been having increased generalized weakness and having difficulty of getting out of bed. Her son says she cannot take care of her mother like this. A CT scan of her abdomen and pelvis was done which showed- IMPRESSION:No evidence of bowel obstruction. Question peptic ulcer disease. No free air. Nonspecific distended urinary bladder; correlate for urinary retention. Additional findings and comments are as above. An indwelling Hanson catheter was placed and urine was sent for evaluation which showed also a urinary tract infection. She was then admitted for observation and arrangement for placement to alf to get stronger before going home. In the floor the patient was having high blood pressures likely due to her low back pain as well. She was started on Toprol-XL and tramadol as Tylenol was not doing it. She received Zosyn and then Rocephin for her UTI. Her urinary culture and sensitivity grew Enterococcus faecalis and E. coli.. She received fosfomycin 3 g p.o. x1 and the Rocephin was discontinued. She will get her second dose of more than a vaccine when she follows up in 1 week. We will refer her to physical therapy using aqua pool therapy. Her Hanson catheter was removed and she is no longer having urinary retention. She is also having daily bowel movement. She continues to have low back pain which she is on medication was. She is stable to be discharged to alf today. Procedures Performed: none Results and Findings: Lab Pending Results 09/11/20 15:27: WBC 7.6, RBC 3.23 L, Hgb 9.6 L, Hct 31.1 L, MCV 96.3, MCH 29.7, MCHC 30.9 L, RDW 13.1, Plt Count 296, MPV 8.2, Immature Gran % (Auto) 0.30, Immature Gran # (Auto) 0.02, Neutrophils % 72.6, Lymphocytes % 14.4 L, Monocytes % 7.7, Eosinophils % 4.5 H, Basophils % 0.5, Nucleated RBC % 0.0, Neutrophils # 5.5, Lymphocytes # 1.09 L, Monocytes # 0.6, Eosinophils # 0.3, Absolute Basophils 0.0 09/11/20 15:27: PT 35.9 H, INR (Anticoag Therapy) 3.67 H 09/11/20 15:27: Sodium 132, Plasma Sodium 133, Potassium 3.4, Chloride 96 L, Carbon Dioxide 31.3, Anion Gap 8.1, BUN 12, Creatinine 0.89, Est GFR (Non-Af Amer) 64, BUN/Creatinine Ratio 13.5, Random Glucose 149 H, Calcium 9.3, Calcium Adj for Albumin 9.9, Total Bilirubin 0.5, AST 23, ALT 20, Alkaline Phosphatase 123, Total Protein 6.8, Albumin 2.9 L, Lipase 222 09/11/20 18:06: Urine Color Yellow, Urine Appearance Cloudy, Urine pH 8.0 H, Ur Specific [place] 1.010, Urine Protein 15 H, Urine Glucose (UA) Negative, Urine Ketones Negative, Urine Blood 250 H, Urine Nitrate Negative, Urine Bilirubin Negative, Urine Urobilinogen Normal, Ur Leukocyte Esterase 500 H, Urine RBC >50 H, Urine WBC >50 H, Ur Epithelial Cells None seen, Urine Bacteria 3+ H, Urine Culture Comments Culture to follow 09/11/20 18:45: SARS-CoV-2 (PCR) Not detected 09/12/20 06:06: PT 36.0 H, INR (Anticoag Therapy) 3.68 H 09/15/20 12:03: PT 14.0 H, INR (Anticoag Therapy) 1.37 H 09/15/20 12:03: WBC 7.3, RBC 3.41 L, Hgb 10.0 L, Hct 32.5 L, MCV 95.3, MCH 29.3, MCHC 30.8 L, RDW 13.0, Plt Count 355, MPV 8.9, Immature Gran % (Auto) 0.40, Immature Gran # (Auto) 0.03, Neutrophils % 75.0, Lymphocytes % 11.3 L, Monocytes % 9.1 H, Eosinophils % 3.6 H, Basophils % 0.6, Nucleated RBC % 0.0, Neutrophils # 5.5, Lymphocytes # 0.82 L, Monocytes # 0.7, Eosinophils # 0.3, Absolute Basophils 0.0 09/15/20 12:03: Sodium 135, Plasma Sodium 135, Potassium 3.2 L, Chloride 97, Carbon Dioxide 30.4, Anion Gap 10.8, BUN 12, Creatinine 0.84, Est GFR (Non-Af Amer) 69, BUN/Creatinine Ratio 14.3, Random Glucose 112 H, Calcium 9.6 Discharge Location: [facility] Disposition: SNF Condition: Stable Level of Care: SNF Discharge Activity: Activity as tolerated Discharge Diet: Low salt [facility] Therapy: Physical Therapy, Occupation Therapy, Speech Therapy Referrals: Matheus Walters MD [Primary Care Provider] - Problem Oriented Discharge Instructions to Patient/Family: Urinary Tract Infection, Adult, [id number], Failure to Thrive, Adult, [id number] Additional Patient Instructions (free text): [facility] SNF- PT, OT, speech therapy to evaluate and treat. Follow up appointment with Dr Walters on September 23 at 3:00pm. INR on 09/20/20, please call results to Dr Walters. Prescriptions (Any new or edited meds): Calcium Carbonate/Vitamin D3 [Calcarb 600 With Vitamin D] 1 tab PO BID #60 tab Transmission Status: Received by [facility] Losartan Potassium 50 mg PO BID #90 tab Transmission Status: Received by [facility] #[id number] oxyCODONE HCL [Oxycontin] 10 mg PO BID #60 tab.sr.12h Transmission Status: Received by [facility] traMADol HCL [Tramadol HCl] 50 mg PO QID PRN #60 tablet PRN Reason: Pain Transmission Status: Sent to [facility] Complete Home Medications List: Complete Home Medication List: Multivitamins [Multivitamin Betty] 1 cap PO DAILY 10/11/12 [place]-3/Dha/Epa/Fish Oil [Fish Oil Dr 500 mg Softgel] 4,000 mg PO DAILY 10/11/12 Ubidecarenone [Co Q-10] 100 mg PO DAILY 10/11/12 Ascorbic Acid [Vitamin C] 1,000 mg PO DAILY 10/25/12 Nitroglycerin 0.4 mg SL .Q 5MIN PRN,X3ONLY PRN 08/08/17 polyethylene glycol 3350 17 gram/dose oral powder 17 g PO DAILY #119 g 11/06/18 Wheat Dextrin [Benefiber] 1 ea PO PRN PRN 11/29/19 atorvastatin 40 mg tablet 40 mg PO HS #90 tab 06/16/20 Synthroid 75 mcg tablet 75 mcg PO DAILY #90 tab NS 06/17/20 Warfarin Sodium [Coumadin] 5 mg PO DAILY 08/09/20 Sennosides/Docusate Sodium [Senokot-S] 2 tab PO HS #60 tab 08/10/20 docusate sodium 100 mg tablet 100 mg PO QID #30 tab 08/13/20 acetaminophen 325 mg tablet 325 mg PO Q6H PRN 08/31/20 Losartan Potassium 50 mg PO BID #90 tab 09/15/20 metoprolol succinate 100 mg tablet,extended release 24 hr 100 mg PO DAILY #90 tab 09/15/20 pantoprazole 20 mg tablet,delayed release 20 mg PO DAILY@0700 #90 tab 09/15/20 tamsulosin 0.4 mg capsule 0.4 mg PO DAILY@1800 #90 cap 09/15/20 Calcium Carbonate/Vitamin D3 [Calcarb 600 With Vitamin D] 1 tab PO BID #60 tab 09/17/20 Warfarin Sodium [Coumadin] 5 mg PO DAILY@1700 tab 09/17/20 oxyCODONE HCL [Oxycontin] 10 mg PO BID #60 tab.sr.12h 09/17/20 traMADol HCL [Tramadol HCl] 50 mg PO QID PRN #60 tablet 09/17/20 Amb Orders for Discharge: Prothrombin Time Time Frame: 09/20/20, Facility: [facility], Location: Laboratory Forms: Patient Portal Registration
[2020-09-17 13:22] VITALS: BP 136/68
== END 2020-09-17 13:40 | DRG 552 ==
LOC: ER 15:07 → MS 15:07
PROVIDERS: ADMIT Internal Medicine; ATTEND Internal Medicine
DX: I10 Essential (primary) hypertension; N39.0 Urinary tract infection, site not specified; S32.040A Wedge compression fracture of fourth lumbar vertebra, initial encounter for closed fracture; I25.10 Atherosclerotic heart disease of native coronary artery without angina pectoris; M54.5 Low back pain; S32.030A Wedge compression fracture of third lumbar vertebra, initial encounter for closed fracture; S32.010A Wedge compression fracture of first lumbar vertebra, initial encounter for closed fracture; Z86.718 Personal history of other venous thrombosis and embolism